=== PATIENT | male | born 1950 | race Caucasian/White ===

== ENCOUNTER → 2018-10-16 11:17 | Outpatient (BNVA) | payer MEDICARE, SELFPAY | PROVIDERS: PCP Family Medicine; Visit Provider Student in an Organized Health Care Education/Training Program | DX: I25.10 Atherosclerotic heart disease of native coronary artery without angina pectoris (principal); E78.2 Mixed hyperlipidemia; I10 Essential (primary) hypertension; J44.9 Chronic obstructive pulmonary disease, unspecified; Z87.891 Personal history of nicotine dependence | CPT/HCPCS: 99214 ==

== ENCOUNTER 2018-11-13 11:02 | Outpatient (CLI) | payer MEDICARE, SELFPAY ==
--- NOTE | 2018-11-13 09:45 | DI.RAD_ITS ---
SYMPTOMS/DIAGNOSIS: RT ANTERIOR CHEST PAIN, INCREASED SHORTNESS OF BREATH, COPD, R07.9, RT SHOULDER/THORACIC PAIN, M25.511 CHEST: Frontal and lateral views. Comparison examination is 08/12/13. The heart size and pulmonary vasculature are within normal limits. The lungs appear hyperinflated with flattened diaphragms. There are hyperlucent areas in the lung apices. The findings are suggestive of underlying COPD. There is prominence of the interstitium again noted which may reflect interstitial fibrosis. No focal consolidating infiltrate is seen. No effusion or pneumothorax is identified. Degenerative changes are seen in the spine. IMPRESSION: COPD and findings suggesting pulmonary fibrosis. RIGHT SHOULDER: Five views. Mild hypertrophic changes at the acromioclavicular joint. The glenohumeral joint appears well maintained. The bones are intact and normally mineralized. The soft tissues are unremarkable. IMPRESSION: Osteoarthritis of the right AC joint.
== END 2018-11-13 11:22 ==
PROVIDERS: PCP Family Medicine; Visit Provider Family Medicine
DX: R07.9 Chest pain, unspecified (principal); R06.02 Shortness of breath; J44.9 Chronic obstructive pulmonary disease, unspecified; J84.10 Pulmonary fibrosis, unspecified; M25.511 Pain in right shoulder; M19.111 Post-traumatic osteoarthritis, right shoulder; M54.6 Pain in thoracic spine
CPT/HCPCS: 71046; 73030

== ENCOUNTER → 2018-12-24 12:49 | Outpatient (BNVA) | payer MEDICARE, SELFPAY | PROVIDERS: PCP Family Medicine; Visit Provider Urology | DX: Z85.51 Personal history of malignant neoplasm of bladder (principal); I10 Essential (primary) hypertension; R31.29 Other microscopic hematuria | CPT/HCPCS: 81001; 99213 ==

== ENCOUNTER 2019-01-13 10:50 | Outpatient (CLI) | payer MEDICARE, SELFPAY ==
[2019-01-13 12:43] LABS: Abs Immature Grans 0.05 k/cumm (0.0-0.09); Absolute Basophil Count 0.02 k/cumm (0.0-0.2); Absolute Eosinophil Count 0.08 k/cumm (0.0-0.7); Absolute Lymphocyte Count 1.62 k/cumm (1.2-3.4); Absolute Monocyte Count 0.55 k/cumm (0.11-0.7); Absolute Neutrophil Count 7.09 k/cumm (1.2-6.7); Basophils % 0.2; Eosinophils % 0.9; HCT 44.5 % (40.0-50.0); HGB 14.7 g/dL (13.5-17.5); Immature Grans % 0.5; Lymphocytes % 17.2; Mean Corpuscular Hemoglobin 27.1 pg (27.0-33.0); Mean Corpuscular Volume 82.1 fL (80-95); Mean Platelet Volume 10.4 fL (8.0-11.0); Monocytes % 5.8; Neutrophils % 75.4; Platelet Count 335 x1000/uL (130-400); RBC 5.42 m/cumm (4.50-6.00); White Blood Cell Count 9.41 k/cumm (4.4-10.8)
[2019-01-13 13:09] LABS: ALT 41 U/L (12-78); AST 27 U/L (15-37); Alkaline Phosphatase 153 U/L (46-116); Anion Gap 9.4 mmol/L (3-11); BUN 30 mg/dL (7-18); Bilirubin, Total 0.3 mg/dL (0.2-1.0); CO2 29.6 mmol/L (21.0-32.0); CREATININE 0.93 mg/dL (0.70-1.30); Calcium 9.5 mg/dL (8.5-10.1); Chloride 99 mmol/L (98-107); Glucose 84 mg/dL (70-100); Potassium 4.2 mmol/L (3.5-5.1); Sodium 138 mmol/L (136-145); TSH 2.49 uIU/mL (0.358-3.74); Total Protein 7.5 g/dL (6.4-8.2)
== END 2019-01-13 11:10 ==
PROVIDERS: PCP Family Medicine; Visit Provider Family Medicine
DX: I10 Essential (primary) hypertension (principal); R55 Syncope and collapse
CPT/HCPCS: 36415; 80053; 84443; 85025

== ENCOUNTER 2019-01-17 01:44 | Outpatient (CLI) | payer MEDICARE, SELFPAY ==
--- NOTE | 2019-01-17 09:50 | DI.CT_ITS ---
SYMPTOM/DIAGNOSIS: COPD, ABD PAIN, INCREASED DYSPNEA, H/O BLADDER CA, ABNL WT LOSS, R63.4 CHEST, ABDOMEN AND PELVIC CT: CT examination of the chest, abdomen and pelvis was performed with a bolus infusion of 100 cc's of Omnipaque 350. There are severe changes of bullous emphysema. There is a mass measuring approximately 5.5 by 4 cm. in diameter which lies anteriorly and medially in the right upper lobe lying against and/or invading the mediastinum. There is right hilar adenopathy measuring about 18 by 40 mm. Prominent pretracheal nodes also noted which are poorly defined but which probably measure up to about 3 cm. in diameter. Mildly enlarged AP window nodes noted as well. Tracheobronchial tree appears intact. No additional intrapulmonary mass is seen. No axillary or supraclavicular adenopathy. No evidence of pulmonary embolic disease or thoracic aortic aneurysm or dissection. Proximal pulmonary arteries are enlarged consistent with chronic pulmonary arterial hypertension. Liver and spleen are unremarkable in appearance. Gallbladder has been surgically removed. No biliary dilatation is seen. Pancreas is unremarkable. Adrenals and kidneys appear normal. Abdominal aorta shows significant wall calcification and a couple of tiny outpouchings but no aneurysm is identified. Maximal aortic diameter about 28 mm. No abdominal or pelvic adenopathy is seen. The patient reportedly has a history of bladder carcinoma. No evidence of urinary tract obstruction or calcification. Urinary bladder appears grossly unremarkable. No pelvic mass or adenopathy is seen. No evidence of bowel obstruction. CONCLUSION: Large right apical lung mass seen medially which may be invading the mediastinum. This was not present on previous chest CT of 06/25/17. Presumed metastatic disease to right hilum and mediastinal nodes. Severe bullous emphysema and presumed pulmonary arterial hypertension. No other significant findings in the chest, abdomen or pelvis.
[2019-01-17] MEDS: Breeza Beverage 473 ML BTL PO ×2 (09:57→09:58)
[2019-01-17] MEDS: Omnipaque 350 MG/ML 100 ML BTL IJ (09:57)
[2019-01-17] MEDS: Omnipaque 350 MG/ML 50 ML BTL PO (09:58)
== END 2019-01-17 02:04 ==
PROVIDERS: PCP Family Medicine; Visit Provider Family Medicine
DX: R63.4 Abnormal weight loss (principal); R10.9 Unspecified abdominal pain; R06.09 Other forms of dyspnea; J44.9 Chronic obstructive pulmonary disease, unspecified; R91.8 Other nonspecific abnormal finding of lung field; J43.9 Emphysema, unspecified; I27.29 Other secondary pulmonary hypertension; Z85.51 Personal history of malignant neoplasm of bladder
CPT/HCPCS: 74177; 71260; J3490; Q9967

== ENCOUNTER 2019-03-31 08:26 | Outpatient (CLI) | payer MEDICARE, SELFPAY ==
[2019-03-31 10:17] LABS: HGB 11.1 g/dL (13.5-17.5); Mean Corp. HGB Concentration 31.7 g/dL (32.0-36.0); Mean Corpuscular Hemoglobin 26.1 pg (27.0-33.0); Mean Corpuscular Volume 82.2 fL (80-95); Mean Platelet Volume 9.7 fL (8.0-11.0); Platelet Count 391 x1000/uL (130-400); RBC 4.26 m/cumm (4.50-6.00); RBC Distribution Width 16.6 % (11.8-14.1); White Blood Cell Count 9.87 k/cumm (4.4-10.8)
[2019-03-31 10:34] LABS: ALT 65 U/L (12-78); AST 44 U/L (15-37); Alkaline Phosphatase 204 U/L (46-116); Anion Gap 6.8 mmol/L (3-11); BUN 31 mg/dL (7-18); Bilirubin, Total 0.6 mg/dL (0.2-1.0); CO2 28.2 mmol/L (21.0-32.0); Calcium 8.8 mg/dL (8.5-10.1); Chloride 101 mmol/L (98-107); Glucose 65 mg/dL (70-100); LDH 174 U/L (85-227); Potassium 4.2 mmol/L (3.5-5.1); Sodium 136 mmol/L (136-145); Total Protein 6.7 g/dL (6.4-8.2)
[2019-03-31 10:39] LABS: Absolute Lymphocyte Count 0.69 k/cumm (1.2-3.4); Absolute Monocyte Count 0.39 k/cumm (0.11-0.7)
[2019-03-31 10:40] LABS: Anisocytosis 1+; Diff Comment Manual Differential; Hypochromasia 1+; Poikilocytes 1+; Polychromasia Present
[2019-03-31 10:44] LABS: Absolute Neutrophil Count 8.59 k/cumm (1.2-6.7)
== END 2019-03-31 08:46 ==
PROVIDERS: PCP Family Medicine; Visit Provider Registered Nurse Oncology
DX: C34.11 Malignant neoplasm of upper lobe, right bronchus or lung (principal)
CPT/HCPCS: 36415; 80053; 83615; 85025

== ENCOUNTER 2019-03-31 09:20 | Outpatient (CLI) | payer MEDICARE, SELFPAY ==
--- NOTE | 2019-03-31 10:00 | DI.CT_ITS ---
SYMPTOM/DIAGNOSIS: CHEST WALL PAIN, ? MULTIPLE IB FRACTURE AND METASTATIC LUNG CA, R07.[address]: CT scan of the chest was performed following the uneventful administration of intravenous contrast material. Comparison is made with 01/17/19. There is again seen a mass in the medial aspect of the right upper lobe. The mass measures 6.8 cm. AP by 5.7 cm. transverse by 9.5 cm. craniocaudad. This has shown interval increase in size compared to the prior examination (5.5 by 4.0 cm.). There is also now invasion into the right aspect of the sternum by the mass. The mass also appears to involve the anterior soft tissues including probably the right pectoralis muscle. There may also be involvement of the wall of the ascending aorta and adjacent superior vena cava. There is mediastinal and right hilar adenopathy present. There has been interval increase in size of the large right hilar lymph node which now measures 2.7 by 2.6 cm. Heart size is within normal limits. There is a small pericardial effusion. Coronary artery calcifications are present. Upper abdominal images show the patient is status post cholecystectomy. Severe centrilobular emphysematous changes are present in the lungs. Interstitial fibrotic changes are seen in the lungs likely reflecting pulmonary fibrosis. No focal consolidating infiltrates are seen. There are degenerative changes in the spine. No definite fracture is appreciated. IMPRESSION: 1. Interval increase in size of right upper lobe mass. 2. Since the prior examination, invasion of the mass into the sternum and right anterior wall musculature are noted. There also appears to be involvement of the costochondral junctions of right ribs medially. 3. The mass is close proximity to the superior vena cava and ascending thoracic aorta and involvement by tumor cannot be excluded. 4. Increased mediastinal and right hilar adenopathy. 5. Severe centrilobular emphysematous changes.
[2019-03-31] MEDS: Omnipaque 350 MG/ML 100 ML BTL 70 ML IJ (10:02)
[2019-03-31] MEDS: Normal Saline Flush 10 ML SYR IVP (10:02)
== END 2019-03-31 09:40 ==
PROVIDERS: PCP Family Medicine; Visit Provider Family Medicine
DX: C34.90 Malignant neoplasm of unspecified part of unspecified bronchus or lung (principal); R07.89 Other chest pain; R59.0 Localized enlarged lymph nodes; I31.3 Pericardial effusion (noninflammatory); J43.2 Centrilobular emphysema
CPT/HCPCS: 71260; J3490

== ENCOUNTER 2019-03-31 11:42 | Emergency (ER) | payer MEDICARE, SELFPAY ==
--- NOTE | 2019-03-31 11:44 | ED.GENADUL_ITS ---
Discharge Plan Disposition Patient Disposition: HOME Condition: Good Discharge Details Chief Complaint: SOB Clinical Impression: Lung cancer, Chest pain Primary Care Provider: Malka Sandhu ED Provider: Shyam Cox Home Meds and New Rx's Prescriptions: No Action prochlorperazine maleate [Compazine] 10 mg tablet 10 mg PO Q6H PRN RF: 0 lidocaine 4 % adhesive patch,medicated 1 patch TP DAILY RF: 0 celecoxib 200 mg capsule 200 mg PO BID Qty: 60 RF: 6 acetaminophen 500 mg tablet 1,000 mg PO TID RF: 0 pneumoc 13-arturo conj-dip cr(PF) 0.5 mL syringe 0.5 ml IM ONCE Qty: 0.5 RF: 0 gabapentin 300 mg capsule 900 mg PO BID RF: 0 ranitidine HCl [Zantac Maximum Strength] 150 mg tablet 150 mg PO BID PRNRF: 0 sertraline 100 mg tablet 200 mg PO DAILY Qty: 180 RF: 4 fentanyl 50 mcg/hr patch 72 hour 1 patch TD Q72H MDD 1 Qty: 10 RF: 0 lorazepam 1 mg tablet 1 mg PO Q4H MDD 4 PRN (Reason: dyspnea) Qty: 60 RF: 4 ASPIRIN 81 MG tablet 1 tab PO DAILY RF: 0 albuterol sulfate [ProAir HFA] 8.5 GM HFA aerosol inhaler 1 - 2 puff Inhalation QID PRNQty: 2 RF: 6 nitroglycerin 0.4 MG tablet, sublingual 0.4 mg Sublingual Q6H PRN PRNQty: 25 RF: 0 trazodone 100 mg tablet 100 mg PO DAILY Qty: 90 RF: 4 baclofen 10 mg tablet 10 mg PO BID Qty: 180 RF: 3 Discharge Instructions Instructions: Chest Pain (ED) Additional Instructions: At this time your laboratory work-up for your heart shows no evidence of significant heart attack or abnormality. Your CT scan shows notable increase in size in your lung cancer. No evidence of significant blood clots. The tumor is pushing and growing into your sternum and ribs which I feel is a large cause of your pain. You may benefit from a rib block by anesthesia. Please discuss this with Dr. Ordonez today. Please follow-up at her office at 4:30 today. Please do not miss this appointment. If you notice any worsening of your symptoms, or any new symptoms such as vomiting, diarrhea, fever, chills, shortness of breath, chest pain, numbness, weakness, or fainting , please return immediately to the emergency department for reevaluation. Please follow up with your primary care provider as soon as possible for reassessment and reevaluation. As always, it was a pleasure participating in your medical care today. Referrals: Gia Beckham MD, [place] [[facility]] - Discharge Data Discharge Date/Time-TO BE ENTERED AT DEPARTURE: 03/31/19 13:29 Medical Decision Making This is a 68-year-old male who presents today for evaluation of chest pain. 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 He is seen by Dr. Sparks. Has chronic right-sided chest pain, however 3 days ago he states that he sneezed and the pain completely went from the right side and now the left side by the left lower sternal border. Pain is made worse with palpation, movement and breathing. He has a history of cardiac disease but states that these current symptoms are atypical from when he had previous cardiac stents. Physical exam demonstrates notable reproducible tenderness on the left side of the chest. He was sent here by oncology today for further evaluation of his chest pain. CT scan earlier today shows evidence of an enlarging cancer, growing roughly 1 cm in all directions. There is encroachment towards the ascending aorta and the superior vena cava. Physical exam demonstrates reproducible chest wall tenderness. No evidence of significant venous or vascular compromise at this time. CT scan also shows notable encroachment and involvement of the tumor into the muscles of the chest, the sternum and the ribs. No acute fractures or evidence of large PE. Laboratory work-up is relatively unchanged, EKG shows no evidence of STEMI or significant ST elevations or depressions. Troponin normal. Lidoderm patch gave no significant relief. With no evidence of clear ACS, Dr. Sparks was contacted, and the case as well as the notable worsening of the patient's symptoms in spite of chemotherapy and radiation was discussed. Dr. Sparks and would like to see the patient this afternoon at 430 for further evaluation, and discussion of the plan going forward. With no evidence of PE, severe cardiac ischemia, or other abnormality patient will be discharged home to see Dr. Dauber 10 in a few hours. I spent a lengthy time discussing the findings, situation, and potential future outcomes with the patient and family. All questions were answered. I have extensively reviewed the treatment plan and discharge instructions with the patient and their family. I have addressed all patient concerns at this time. The patient and family was made aware of what symptoms to monitor for that would warrant a return to the emergency department. Discussed the plan with the patient and family, they demonstrate verbal understanding and agreement with our assessment and plan at this time. EKG 11: 49 Rate 60, intervals normal, sinus rhythm, no significant ST elevations or depressions, inverted T wave is present in V1 and V2. No evidence of STEMI unc hanged from prior EKG on 08/09/[address]: CT scan of the chest was performed following the uneventful administration of intravenous contrast material. Comparison is made with 01/17/19. There is again seen a mass in the medial aspect of the right upper lobe. The mass measures 6.8 cm. AP by 5.7 cm. transverse by 9.5 cm. craniocaudad. This has shown interval increase in size compared to the prior examination (5.5 by 4.0 cm.). There is also now invasion into the right aspect of the sternum by the mass. The mass also appears to involve the anterior soft tissues including probably the right pectoralis muscle. There may also be involvement of the wall of the ascending aorta and adjacent superior vena cava. There is mediastinal and right hilar adenopathy present. There has been interv al increase in size of the large right hilar lymph node which now measures 2.7 by 2.6 cm. Heart size is within normal limits. There is a small pericardial effusion. Coronary artery calcifications are present. Upper abdominal images show the patient is status post cholecystectomy. Severe centrilobular emphysematous changes are present in the lungs. Interstitial fibrotic changes are seen in the lungs likely reflecting pulmonary fibrosis. No focal consolidating infiltrates are seen. There are degenerative changes in the spine. No definite fracture is appreciated. IMPRESSION: 1. Interval increase in size of right upper lobe mass. 2. Since the prior examination, invasion of the mass into the sternum and right anterior wall musculature are noted. There also appears to be involvement of the costochondral junctions of right ribs medially. 3. The mass is close proximity to the superior vena cava and ascending thoracic aorta and involvement by tumor cannot be excluded. 4. Increased mediastinal and right hilar adenopathy. 5. Severe centrilobular emphysematous changes. [id number]: Total DLP = 0.00 mGy-cm Ordered By: Gia Beckham M.D., [place] CC: DENNIS WALLS MD [facility] General Date/Time Provider Initiated Documentation: 03/31/19 11:43 . HPI Narrative: This is a pleasant 68-year-old male with a past medical history of alpha-1 antitrypsin deficiency, squamous cell carcinoma of the lung, who is currently receiving chemotherapy and radiation. He also has hypertension and high cholesterol. Since his initial large tumor was discovered in his lungs, he has been having chronic right-sided chest pain. About 3 days ago he states that he sneezed, and suddenly the pain went from his right chest to his left chest. He was supposed to have radiation today, but out of concern for the chest pain oncology recommended he come to the ER for further evaluation. This is also discussed with Dr. Mateus Dos Santos, who had the same recommendation. He did have a CT scan earlier this morning which showed enlargement of the tumor, with mild encroachment on his aorta, superior vena cava, and invagination into the right ribs and mediastinum. It is grown roughly 1 cm in all directions since his last CT scan in spite of therapy. Aside for this chronic pain that is now present on the left-hand side he denies any new shortness of breath, arm neck or shoulder pain, chest heaviness, or history of hemoptysis. CT scan performed earlier today he did have IV contrast, no evidence of pulmonary embolism or dissection was noted. Patient does have a history of cardiac stents in the past, but states that this feels different than those previous episodes. No other complaints at this time. No other modifying factors. Related Data Home Medications Medication Instructions Recorded Confirmed Aspirin 1 tab PO DAILY 12/31/12 03/26/19 albuterol sulfate [Proair Hfa] 1 - 2 puff INHALATION QID PRN #2 12/25/16 03/19/19 inhaler nitroglycerin 0.4 mg SUBLINGUAL Q6H PRN PRN #25 06/27/17 03/26/19 tab-cap pneumoc 13-arturo conj-dip cr(PF) 0.5 0.5 ml IM ONCE #0.5 ml 08/21/18 03/19/19 mL IM syringe trazodone 100 mg tablet 100 mg PO DAILY #90 tab-cap 10/13/18 03/26/19 baclofen 10 mg tablet 10 mg PO BID #180 tab-cap 11/01/18 03/26/19 ranitidine HCl 150 mg tablet 150 mg PO BID PRN tab-cap 12/25/18 03/26/19 sertraline 100 mg tablet 200 mg PO DAILY #180 tab 12/25/18 03/26/19 acetaminophen 500 mg tablet 1,000 mg PO TID tab 03/26/19 03/26/19 celecoxib 200 mg capsule 200 mg PO BID #60 cap 03/26/19 03/26/19 gabapentin 300 mg capsule 900 mg PO BID tab-cap 03/26/19 03/26/19 lidocaine 4 % topical patch 1 patch TP DAILY each 03/26/19 03/26/19 prochlorperazine maleate 10 mg 10 mg PO Q6H PRN tab 03/26/19 03/26/19 tablet fentanyl 50 mcg/hr transdermal 1 patch TD Q72H #10 each MDD 1 03/31/19 03/31/19 patch lorazepam 1 mg tablet 1 mg PO Q4H PRN #60 tab MDD 4 03/31/19 03/31/19 Previous Rx's Medication Instructions Recorded pneumoc 13-arturo conj-dip cr(PF) 0.5 0.5 ml IM ONCE #0.5 ml 08/21/18 mL IM syringe trazodone 100 mg tablet 100 mg PO DAILY #90 tab-cap 10/13/18 baclofen 10 mg tablet 10 mg PO BID #180 tab-cap 11/01/18 sertraline 100 mg tablet 200 mg PO DAILY #180 tab 12/25/18 celecoxib 200 mg capsule 200 mg PO BID #60 cap 03/26/19 fentanyl 50 mcg/hr transdermal 1 patch TD Q72H #10 each MDD 1 03/31/19 patch lorazepam 1 mg tablet 1 mg PO Q4H PRN #60 tab MDD 4 03/31/19 Allergies Allergy/AdvReac Type Severity Reaction Status Date / Time bupropion Allergy Intermediate Hives Verified 03/19/19 07:57 Tricyclic Compounds Allergy Intermediate Hives Verified 03/19/19 07:57 omeprazole AdvReac Intermediate Diarrhea Verified 03/19/19 07:57 isosorbide mononitrate AdvReac Headache Verified 03/19/19 07:57 [From Imdur] ketorolac [From Toradol] AdvReac Headache Unverified 03/26/19 08:44 Review of Systems Review of Systems All systems reviewed & are unremarkable except as noted in HPI and below PFSH Family History (Updated 03/26/19 @ 09:06 by Devorah Holley RN) Daughter No problems noted. Son No problems noted. Mother Aneurysm Father Aortic aneurysm Social History (Updated 03/26/19 @ 09:05 by Devorah Holley RN) Smoking/Tobacco Use Status: Former Tobacco Use Drug use: Never Household members: significant other Housing: house Pets and animals: Yes ([facility]) Pets and animals: cat(s) Do you feel safe in your relationship?: Yes Exam Narrative Exam Narrative: 1.Const: Well-nourished, Well-developed, appearing stated age 2.Eyes: PERRL, no conjunctival injection, and symmetrical lids. 3.ENT: Atraumatic external nose and ears. Moist MM. Neck: Symmetric, trachea midline, No thyromegaly. 4.CVS: +S1/S2, No murmurs or gallops. Peripheral pulses 2+ and equal in all extremities. Brisk capillary refill in all extremities. Radial pulses +2 bilaterally. No evidence of significant venous congestion for the upper or lower extremities. 5.RESP: Unlabored respiratory effort. Clear to auscultation bilaterally. No wheezes rales or rhonchi 6.GI: Soft, Nontender/Nondistended, No hepatosplenomegaly. No guarding or rebound. 7.MSK: Normocephalic/Atraumatic, Extremities w/o deformity. No cyanosis or cl ubbing, Normal movement of all extremities. Notable reproducible chest wall tenderness on the left and right around the sternum. This is a location of the patient's chest pain complaint. No pain in other areas of the chest. 8.Skin: Warm, Dry. No rashes or lesions. 9.Neuro: thermostat mechanic II-XII grossly intact. Sensation grossly intact, no focal neurologic deficits. 10.Psych: (AAO) x3. Appropriate mood and affect
[2019-03-31 11:51] VITALS: PULSE 71; RESP 18; O2SAT 99
[2019-03-31] MEDS: Lidocaine 5% Patch 1 PATCH TP (12:07)
[2019-03-31 12:10] LABS: Absolute Basophil Count 0.02 k/cumm (0.0-0.2); Absolute Eosinophil Count 0.05 k/cumm (0.0-0.7); Absolute Lymphocyte Count 0.83 k/cumm (1.2-3.4); Absolute Monocyte Count 0.46 k/cumm (0.11-0.7); Basophils % 0.2; Eosinophils % 0.5; HCT 35.6 % (40.0-50.0); HGB 11.6 g/dL (13.5-17.5); Immature Grans % 1.9; Lymphocytes % 7.9; Mean Corp. HGB Concentration 32.6 g/dL (32.0-36.0); Mean Corpuscular Hemoglobin 26.6 pg (27.0-33.0); Mean Corpuscular Volume 81.7 fL (80-95); Monocytes % 4.4; Neutrophils % 85.1; Platelet Count 417 x1000/uL (130-400); RBC 4.36 m/cumm (4.50-6.00); RBC Distribution Width 16.7 % (11.8-14.1); White Blood Cell Count 10.56 k/cumm (4.4-10.8)
[2019-03-31 12:31] LABS: ALT 70 U/L (12-78); AST 47 U/L (15-37); Albumin 2.2 g/dL (3.4-5.0); Alkaline Phosphatase 220 U/L (46-116); Anion Gap 6.9 mmol/L (3-11); BUN 31 mg/dL (7-18); Bilirubin, Total 0.6 mg/dL (0.2-1.0); CO2 28.1 mmol/L (21.0-32.0); Calcium 8.9 mg/dL (8.5-10.1); Chloride 100 mmol/L (98-107); Glucose 86 mg/dL (70-100); Potassium 4.3 mmol/L (3.5-5.1); Sodium 135 mmol/L (136-145); Total Protein 7.1 g/dL (6.4-8.2)
[2019-03-31 12:36] LABS: Troponin I < 0.05 ng/mL (0.00-0.06)
== END 2019-03-31 13:29 | disposition home or self-care (01) ==
PROVIDERS: Emergency Provider Student in an Organized Health Care Education/Training Program; PCP Family Medicine
DX: R06.02 Shortness of breath (principal); R07.9 Chest pain, unspecified; C34.11 Malignant neoplasm of upper lobe, right bronchus or lung; Z79.899 Other long term (current) drug therapy; I10 Essential (primary) hypertension
CPT/HCPCS: 36415; 80053; 93005; 99284; 71260; 83615; 84484; 85025; 93010; 99285; J3490

== ENCOUNTER 2019-04-08 09:36 | Outpatient (CLI) | payer MEDICARE, SELFPAY ==
[2019-04-08 10:00] LABS: Abs Immature Grans 0.07 k/cumm (0.0-0.09); Absolute Basophil Count 0.02 k/cumm (0.0-0.2); Absolute Eosinophil Count 0.01 k/cumm (0.0-0.7); Absolute Monocyte Count 0.09 k/cumm (0.11-0.7); Absolute Neutrophil Count 6.81 k/cumm (1.2-6.7); Basophils % 0.3; Eosinophils % 0.1; HCT 40.2 % (40.0-50.0); HGB 12.8 g/dL (13.5-17.5); Lymphocytes % 4.1; Mean Corp. HGB Concentration 31.8 g/dL (32.0-36.0); Mean Corpuscular Hemoglobin 26.2 pg (27.0-33.0); Mean Corpuscular Volume 82.4 fL (80-95); Mean Platelet Volume 9.3 fL (8.0-11.0); Monocytes % 1.2; Neutrophils % 93.3; Platelet Count 298 x1000/uL (130-400); RBC 4.88 m/cumm (4.50-6.00); RBC Distribution Width 18.8 % (11.8-14.1)
[2019-04-08 10:15] LABS: ALT 88 U/L (12-78); AST 47 U/L (15-37); Albumin 2.6 g/dL (3.4-5.0); Alkaline Phosphatase 150 U/L (46-116); Anion Gap 8.1 mmol/L (3-11); BUN 28 mg/dL (7-18); Bilirubin, Total 0.4 mg/dL (0.2-1.0); CO2 25.9 mmol/L (21.0-32.0); CREATININE 0.89 mg/dL (0.70-1.30); Chloride 104 mmol/L (98-107); Glucose 113 mg/dL (70-100); Potassium 4.6 mmol/L (3.5-5.1); Sodium 138 mmol/L (136-145); Total Protein 7.2 g/dL (6.4-8.2)
== END 2019-04-08 09:56 ==
PROVIDERS: PCP Family Medicine; Visit Provider Registered Nurse Oncology
DX: C34.01 Malignant neoplasm of right main bronchus (principal)
CPT/HCPCS: 36415; 80053; 85025

== ENCOUNTER 2019-04-15 00:43 | Outpatient (CLI) | payer MEDICARE, SELFPAY ==
[2019-04-15 09:44] LABS: Abs Immature Grans 0.04 k/cumm (0.0-0.09); Absolute Basophil Count 0.01 k/cumm (0.0-0.2); Absolute Eosinophil Count 0.01 k/cumm (0.0-0.7); Absolute Lymphocyte Count 0.31 k/cumm (1.2-3.4); Absolute Monocyte Count 0.21 k/cumm (0.11-0.7); Absolute Neutrophil Count 5.07 k/cumm (1.2-6.7); Basophils % 0.2; Eosinophils % 0.2; HCT 38.5 % (40.0-50.0); HGB 12.4 g/dL (13.5-17.5); Immature Grans % 0.7; Lymphocytes % 5.5; Mean Corp. HGB Concentration 32.2 g/dL (32.0-36.0); Mean Corpuscular Volume 83.7 fL (80-95); Mean Platelet Volume 9.1 fL (8.0-11.0); Monocytes % 3.7; Neutrophils % 89.7; Platelet Count 180 x1000/uL (130-400); White Blood Cell Count 5.65 k/cumm (4.4-10.8)
[2019-04-15 09:58] LABS: Albumin 2.8 g/dL (3.4-5.0); Alkaline Phosphatase 105 U/L (46-116); BUN 21 mg/dL (7-18); Bilirubin, Total 0.4 mg/dL (0.2-1.0); CREATININE 0.94 mg/dL (0.70-1.30); Calcium 9.1 mg/dL (8.5-10.1); Glucose 112 mg/dL (70-100); Sodium 140 mmol/L (136-145); Total Protein 6.8 g/dL (6.4-8.2)
[2019-04-15 09:59] LABS: ALT 70 U/L (12-78); AST 28 U/L (15-37); Anion Gap 8.4 mmol/L (3-11); CO2 26.6 mmol/L (21.0-32.0); Chloride 105 mmol/L (98-107)
[2019-04-15 10:12] LABS: Anisocytosis 2+; Diff Comment Diff Reviewed; Poikilocytes 1+
== END 2019-04-15 01:03 ==
PROVIDERS: Registered Nurse Oncology; PCP Family Medicine; Visit Provider Family Medicine
DX: C34.01 Malignant neoplasm of right main bronchus (principal)
CPT/HCPCS: 36415; 80053; 85025

== ENCOUNTER 2019-04-22 09:57 | Outpatient (CLI) | payer MEDICARE, SELFPAY ==
[2019-04-22 10:25] LABS: Abs Immature Grans 0.04 k/cumm (0.0-0.09); Absolute Basophil Count 0.01 k/cumm (0.0-0.2); Absolute Lymphocyte Count 0.32 k/cumm (1.2-3.4); Absolute Monocyte Count 0.19 k/cumm (0.11-0.7); Absolute Neutrophil Count 3.54 k/cumm (1.2-6.7); Basophils % 0.2; HCT 36.4 % (40.0-50.0); HGB 11.9 g/dL (13.5-17.5); Lymphocytes % 7.8; Mean Corp. HGB Concentration 32.7 g/dL (32.0-36.0); Mean Corpuscular Volume 85.6 fL (80-95); Mean Platelet Volume 9.3 fL (8.0-11.0); Monocytes % 4.6; Neutrophils % 86.4; Platelet Count 113 x1000/uL (130-400); RBC 4.25 m/cumm (4.50-6.00); RBC Distribution Width 23.5 % (11.8-14.1)
[2019-04-22 10:52] LABS: ALT 52 U/L (12-78); AST 20 U/L (15-37); Albumin 2.9 g/dL (3.4-5.0); Alkaline Phosphatase 98 U/L (46-116); Anion Gap 8.4 mmol/L (3-11); BUN 31 mg/dL (7-18); Bilirubin, Total 0.3 mg/dL (0.2-1.0); CO2 26.6 mmol/L (21.0-32.0); CREATININE 0.92 mg/dL (0.70-1.30); Calcium 8.9 mg/dL (8.5-10.1); Chloride 105 mmol/L (98-107); Glucose 96 mg/dL (70-100); LDH 152 U/L (85-227); Potassium 4.6 mmol/L (3.5-5.1); Sodium 140 mmol/L (136-145); Total Protein 6.9 g/dL (6.4-8.2)
== END 2019-04-22 10:17 ==
PROVIDERS: PCP Family Medicine; Visit Provider Registered Nurse Oncology
DX: C34.11 Malignant neoplasm of upper lobe, right bronchus or lung (principal)
CPT/HCPCS: 36415; 80053; 83615; 85025

== ENCOUNTER 2019-04-29 09:57 | Outpatient (CLI) | payer MEDICARE, SELFPAY ==
[2019-04-29 10:57] LABS: ALT 36 U/L (12-78); AST 15 U/L (15-37); Albumin 3.1 g/dL (3.4-5.0); Alkaline Phosphatase 83 U/L (46-116); BUN 29 mg/dL (7-18); Bilirubin, Total 0.4 mg/dL (0.2-1.0); CREATININE 0.89 mg/dL (0.70-1.30); Calcium 8.5 mg/dL (8.5-10.1); Chloride 109 mmol/L (98-107); Glucose 92 mg/dL (70-100); LDH 159 U/L (85-227); Potassium 4.1 mmol/L (3.5-5.1); Sodium 143 mmol/L (136-145); Total Protein 6.8 g/dL (6.4-8.2)
[2019-04-29 11:03] LABS: Abs Immature Grans 0.01 k/cumm (0.0-0.09); Absolute Basophil Count 0.01 k/cumm (0.0-0.2); Absolute Eosinophil Count 0.01 k/cumm (0.0-0.7); Absolute Lymphocyte Count 0.26 k/cumm (1.2-3.4); Absolute Monocyte Count 0.09 k/cumm (0.11-0.7); Absolute Neutrophil Count 2.62 k/cumm (1.2-6.7); Basophils % 0.3; Eosinophils % 0.3; HCT 33.2 % (40.0-50.0); HGB 10.8 g/dL (13.5-17.5); Immature Grans % 0.3; Lymphocytes % 8.7; Mean Corp. HGB Concentration 32.5 g/dL (32.0-36.0); Mean Corpuscular Hemoglobin 28.1 pg (27.0-33.0); Mean Corpuscular Volume 86.2 fL (80-95); Mean Platelet Volume 11.5 fL (8.0-11.0); Neutrophils % 87.4; RBC 3.85 m/cumm (4.50-6.00); RBC Distribution Width 23.8 % (11.8-14.1)
[2019-04-29 11:08] LABS: Anisocytosis 2+; Diff Comment RBC Morph Reviewed; Hypochromasia 1+; Polychromasia Present
[2019-04-29 11:09] LABS: Platelet Count 81 x1000/uL (130-400); Poikilocytes 1+
== END 2019-04-29 10:17 ==
PROVIDERS: PCP Family Medicine; Visit Provider Registered Nurse Oncology
DX: C34.11 Malignant neoplasm of upper lobe, right bronchus or lung (principal)
CPT/HCPCS: 80053; 83615; 85025

== ENCOUNTER 2019-05-06 09:08 | Outpatient (CLI) | payer MEDICARE, SELFPAY ==
[2019-05-06 09:30] LABS: Abs Immature Grans 0.01 k/cumm (0.0-0.09); Absolute Eosinophil Count 0.01 k/cumm (0.0-0.7); Absolute Monocyte Count 0.14 k/cumm (0.11-0.7); Absolute Neutrophil Count 0.92 k/cumm (1.2-6.7); Eosinophils % 0.7; HGB 11.2 g/dL (13.5-17.5); Immature Grans % 0.7; Lymphocytes % 21.7; Mean Corp. HGB Concentration 32.9 g/dL (32.0-36.0); Mean Corpuscular Volume 88.1 fL (80-95); Mean Platelet Volume 9.6 fL (8.0-11.0); Monocytes % 10.1; Neutrophils % 66.8; Platelet Count 151 x1000/uL (130-400); RBC 3.86 m/cumm (4.50-6.00)
[2019-05-06 09:33] LABS: White Blood Cell Count 1.38 k/cumm (4.4-10.8)
[2019-05-06 09:40] LABS: ALT 28 U/L (12-78); AST 13 U/L (15-37); Albumin 3.3 g/dL (3.4-5.0); Alkaline Phosphatase 83 U/L (46-116); Anion Gap 9.7 mmol/L (3-11); BUN 29 mg/dL (7-18); Bilirubin, Total 0.7 mg/dL (0.2-1.0); CO2 26.3 mmol/L (21.0-32.0); CREATININE 0.95 mg/dL (0.70-1.30); Calcium 8.9 mg/dL (8.5-10.1); Chloride 107 mmol/L (98-107); Glucose 99 mg/dL (70-100); LDH 192 U/L (85-227); Potassium 3.6 mmol/L (3.5-5.1); Sodium 143 mmol/L (136-145); Total Protein 7.2 g/dL (6.4-8.2)
[2019-05-06 09:50] LABS: Anisocytosis 3+; Diff Comment Diff Reviewed
[2019-05-06 09:51] LABS: Poikilocytes 2+; Polychromasia Present
== END 2019-05-06 09:28 ==
PROVIDERS: PCP Family Medicine; Visit Provider Registered Nurse Oncology
DX: C34.11 Malignant neoplasm of upper lobe, right bronchus or lung (principal); R74.8 Abnormal levels of other serum enzymes
CPT/HCPCS: 36415; 80053; 83615; 83915; 85025

== ENCOUNTER → 2019-05-07 08:52 | Outpatient (BNVA) | payer MEDICARE, SELFPAY | PROVIDERS: PCP Family Medicine; Referring Provider Family Medicine; Visit Provider Student in an Organized Health Care Education/Training Program | DX: I25.10 Atherosclerotic heart disease of native coronary artery without angina pectoris (principal); F17.210 Nicotine dependence, cigarettes, uncomplicated; I95.9 Hypotension, unspecified; J44.9 Chronic obstructive pulmonary disease, unspecified; I10 Essential (primary) hypertension | CPT/HCPCS: 99214 ==

== ENCOUNTER 2019-05-12 10:51 | Outpatient (REF) | payer MEDICARE, SELFPAY ==
[2019-05-12 11:37] LABS: Bilirubin Negative (Negative); Blood Small (Negative); Clarity Cloudy (Clear); Glucose Negative (Negative); Ketones Negative (Negative); Leukocyte Esterase Moderate (Negative); Nitrite Positive (Negative); Specific Gravity 1.025 (1.005-1.025); Urobilinogen 0.2 EU/dL (Up TO 0.2); pH 6.5 (5-8)
[2019-05-12 11:46] LABS: C & S Indicated? Yes; WBC >50 HPF (0-5)
== END 2019-05-12 11:11 ==
LOC: LBN 10:51
PROVIDERS: PCP Family Medicine; Visit Provider Family Medicine
DX: R35.0 Frequency of micturition (principal)
CPT/HCPCS: 87077; 81003; 81015; 87086; 87186

== ENCOUNTER 2019-05-20 10:06 | Inpatient (IN) | payer MEDICARE, SELFPAY ==
[2019-05-20] VITALS (138 sets, daily range): BP systolic 89–152; BP diastolic 59–101; PULSE 89–123; RESP 4–36; TEMP 34–37.2; O2SAT 52–98
[2019-05-20] MEDS: Normal Saline 1,000 ML 1000 ML IV ×2 (09:56→10:57)
--- NOTE | 2019-05-20 09:59 | DI.CT_ITS ---
SYMPTOM/DIAGNOSIS: LUNG CANCER, SHORTNESS OF BREATH. CHEST CT FOR PULMONARY EMBOLISM CT angiography was performed with multi slice acquisition and multi planar and 3D reconstruction. Comparison is made with 31 March 2019. The aorta and pulmonary arteries are well opacified with IV contrast. There are no pulmonary emboli or evidence of aortic dissection. There has been interval decrease in size of the previously noted mass in the medial right upper lobe. There are central areas of necrosis. There are severe underlying emphysematous changes and changes of honeycombing throughout the lungs. There is pleural thickening posteriorly in the right upper lobe. There has also been decrease in size of right hilar adenopathy and in the previously noted pericardial effusion. There is now a fracture in the mid sternum. Previous tumor invasion in to the sternum was noted. Degenerative changes are seen in the thoracic spine. No lytic or blastic lesions are identified in the spine. No rib fractures or pneumothorax is seen. IMPRESSION: 1. Pathologic fracture of the sternum. 2. Decreased size of the anteromedial right upper lobe mass adjacent to the sternum
--- NOTE | 2019-05-20 10:13 | ED.GENADUL_ITS ---
Discharge Plan Disposition Patient Disposition: [facility] INPATIENT Condition: Stable Discharge Details Chief Complaint: SOB Clinical Impression: Chronic obstructive lung disease, Low O2 saturation Primary Care Provider: Malka Sandhu ED Provider: Quique Reyez Home Meds and New Rx's Prescriptions: No Action (DME) Oxygen Tank See Rx Instructions .ROUTE .MEDSUPPLY Qty: 1 RF: 0 prochlorperazine maleate [Compazine] 10 mg tablet 10 mg PO Q6H PRN RF: 0 celecoxib 200 mg capsule 200 mg PO BID Qty: 60 RF: 6 acetaminophen 500 mg tablet 1,000 mg PO TID RF: 0 gabapentin 300 mg capsule 900 mg PO BID Qty: 540 RF: 5 fentanyl 25 mcg/hr patch 72 hour 1 patch TD Q72H MDD 1 Qty: 10 RF: 0 lorazepam 1 mg tablet 1 mg PO Q4H MDD 4 PRN (Reason: dyspnea) Qty: 90 RF: 4 dexamethasone 4 mg tablet 4 mg PO DAILY RF: 0 ranitidine HCl [Zantac Maximum Strength] 150 mg tablet 150 mg PO BID PRNRF: 0 sertraline 100 mg tablet 200 mg PO DAILY Qty: 180 RF: 4 ciprofloxacin HCl 500 mg tablet 500 mg PO BID Qty: 14 RF: 0 ASPIRIN 81 MG tablet 1 tab PO DAILY RF: 0 albuterol sulfate [ProAir HFA] 8.5 GM HFA aerosol inhaler 1 - 2 puff Inhalation QID PRNQty: 2 RF: 6 nitroglycerin 0.4 MG tablet, sublingual 0.4 mg Sublingual Q6H PRN PRNQty: 25 RF: 0 trazodone 100 mg tablet 100 mg PO DAILY Qty: 90 RF: 4 baclofen 10 mg tablet 10 mg PO BID Qty: 180 RF: 3 atorvastatin 80 mg tablet 80 mg PO DAILY Qty: 90 RF: 4 Medical Decision Making 68 yo male with hx of lung cancer, copd on home o2, who comes in with worsening shortness of breath over 5 days. He called ems this morning and was given 125mg IV solumedrol, duoneb and 0.3mg SQ epi and states he does feel better now. Denies any fevers, has chronic right sided chest pain that is unchanged. He is speaking in 4-5 word sentences now and has diffuse wheezing on exam, no rashes, no lower extremity edema or jvd. Given his hx will continue duonebs and obtain cta to eval for pe vs pna. He has no new chest pain so unlikely acs cta per Dr. Rodriguez shows no pe or infiltrate, has pathological fx of sternum denies any recent falls. Lab work shows probnp of over 8000 but no evidence of pulmonary edema and negative troponin. he is still hypoxic on 8L NC and given symptoms will admit for copd exacerbation Differential Diagnosis copd, pe, pna Imaging Data Radiologic Study: Attestation: I personally reviewed and interpreted this imaging study as follows: Imaging: CT Scan Radiologist's impression: no acute pe or infiltrate, sternal fracture Lab Data Lab results reviewed: Yes I reviewed the patient's lab results. ECG Data Attestation: I personally reviewed and interpreted this ECG (s) as follows: Prior ECG tracings: not available for review Interpretation: sinus tachycardia, rate of 108, pr 158, qtc 482 HPI General Mode of arrival: ambulatory . Date/Time Provider Initiated Documentation: 05/20/19 10:13 . Limitations to Documentation: no limitations . Information obtained by: patient . History of Present Illness 68 year old M presents to the emergency department with the chief complaint of shortness of breath, described as moderate, Patient started experiencing this day(s) (5) and it has been other. No relieving factors improve symptom(s), No exacerbating factors reported . Patient did receive the following treatments prior to arrival, none Related Data Home Medications Medication Instructions Recorded Confirmed Aspirin 1 tab PO DAILY 12/31/12 05/20/19 albuterol sulfate [Proair Hfa] 1 - 2 puff INHALATION QID PRN #2 12/25/16 05/20/19 inhaler nitroglycerin 0.4 mg SUBLINGUAL Q6H PRN PRN #25 06/27/17 05/20/19 tab-cap trazodone 100 mg tablet 100 mg PO DAILY #90 tab-cap 10/13/18 05/20/19 baclofen 10 mg tablet 10 mg PO BID #180 tab-cap 11/01/18 05/20/19 ranitidine HCl 150 mg tablet 150 mg PO BID PRN tab-cap 12/25/18 05/20/19 sertraline 100 mg tablet 200 mg PO DAILY #180 tab 12/25/18 05/20/19 acetaminophen 500 mg tablet 1,000 mg PO TID tab 03/26/19 05/20/19 celecoxib 200 mg capsule 200 mg PO BID #60 cap 03/26/19 05/20/19 prochlorperazine maleate 10 mg 10 mg PO Q6H PRN tab 03/26/19 05/20/19 tablet fentanyl 25 mcg/hr transdermal 1 patch TD Q72H #10 each MDD 1 04/30/19 05/20/19 patch gabapentin 300 mg capsule 900 mg PO BID #540 tab-cap 04/30/19 05/20/19 lorazepam 1 mg tablet 1 mg PO Q4H PRN #90 tab MDD 4 04/30/19 05/20/19 Oxygen #1 each 05/07/19 05/12/19 atorvastatin 80 mg tablet 80 mg PO DAILY #90 tab 05/07/19 05/20/19 dexamethasone 4 mg tablet 4 mg PO DAILY 05/07/19 05/20/19 ciprofloxacin HCl 500 mg tablet 500 mg PO BID #14 tab 05/12/19 05/20/19 Previous Rx's Medication Instructions Recorded trazodone 100 mg tablet 100 mg PO DAILY #90 tab-cap 10/13/18 baclofen 10 mg tablet 10 mg PO BID #180 tab-cap 11/01/18 sertraline 100 mg tablet 200 mg PO DAILY #180 tab 12/25/18 celecoxib 200 mg capsule 200 mg PO BID #60 cap 03/26/19 fentanyl 25 mcg/hr transdermal 1 patch TD Q72H #10 each MDD 1 04/30/19 patch gabapentin 300 mg capsule 900 mg PO BID #540 tab-cap 04/30/19 lorazepam 1 mg tablet 1 mg PO Q4H PRN #90 tab MDD 4 04/30/19 atorvastatin 80 mg tablet 80 mg PO DAILY #90 tab 05/07/19 ciprofloxacin HCl 500 mg tablet 500 mg PO BID #14 tab 05/12/19 Allergies Allergy/AdvReac Type Severity Reaction Status Date / Time bupropion Allergy Intermediate Hives Verified 05/20/19 10:16 Tricyclic Compounds Allergy Intermediate Hives Verified 05/20/19 10:16 omeprazole AdvReac Intermediate Diarrhea Verified 05/20/19 10:16 isosorbide mononitrate AdvReac Headache Verified 05/20/19 10:16 [From Imdur] ketorolac [From Toradol] AdvReac Headache Unverified 05/20/19 10:16 General VIRIDIANA: 2 Review of Systems Review of Systems All systems reviewed & are unremarkable except as noted in HPI and below Constitutional Denies chills, Denies fever(s) and Denies weakness Cardiovascular Denies chest pain and Denies dyspnea Respiratory Denies cough and Denies dyspnea Gastrointestinal Denies abdominal pain, Denies nausea and Denies vomiting Genitourinary Denies dysuria Musculoskeletal Denies joint swelling Neurologic Denies weakness Endocrine Denies heat intolerance PFSH Family History (Updated 03/26/19 @ 09:06 by Devorah Holley RN) Daughter No problems noted. Son No problems noted. Mother Aneurysm Father Aortic aneurysm Social History (Updated 05/07/19 @ 09:12 by Deb Mckeon RN) Smoking/Tobacco Use Status: Former Tobacco Use Quit Date: 09/17/17 Drug use: Never Household members: significant other Housing: house Pets and animals: Yes ([facility]) Pets and animals: cat(s) Do you feel safe in your relationship?: Yes Exam Const General: no acute distress Orientation: alert HENMT Head: normal to inspection Ears: external ears normal General nose exam: external nose normal Mouth: moist mucous membranes Eyes General: appearance normal, both eyes and all related structures Neck Neck: normal visual inspection Resp Effort & Inspection: tachypneic Cardio Rate: regular rate Skin General skin exam: no rashes or lesions noted Neuro General: alert and oriented x3 Extrem General: normal to inspection Psych Mental Status: mental status grossly normal
[2019-05-20] MEDS: Albuterol/Ipratropium 3 ML UPD VIAL ×2 (10:21→11:25)
[2019-05-20 10:24] LABS: Abs Immature Grans 0.43 k/cumm (0.0-0.09); HCT 35.1 % (40.0-50.0); HGB 11.4 g/dL (13.5-17.5); Mean Corp. HGB Concentration 32.5 g/dL (32.0-36.0); Mean Corpuscular Volume 92.4 fL (80-95); Mean Platelet Volume 9.9 fL (8.0-11.0); RBC Distribution Width 27.5 % (11.8-14.1); White Blood Cell Count 9.92 k/cumm (4.4-10.8)
[2019-05-20 10:39] LABS: INR 1.2 (0.9-1.1); PTT Activated 24.3 sec (21.0-31.4); Prothrombin Time 11.6 sec (9.3-11.0)
[2019-05-20 10:43] LABS: Absolute Lymphocyte Count 1.49 k/cumm (1.2-3.4); Absolute Monocyte Count 0.89 k/cumm (0.11-0.7); Absolute Neutrophil Count 7.44 k/cumm (1.2-6.7)
[2019-05-20 10:44] LABS: Anisocytosis 3+; Diff Comment Manual Differential; Platelet Count 291 x1000/uL (130-400); Poikilocytes 1+; Polychromasia Present
[2019-05-20 10:59] LABS: ALT 35 U/L (16-63); AST 32 U/L (15-37); Albumin 2.9 g/dL (3.4-5.0); Alkaline Phosphatase 103 U/L (46-116); Anion Gap 16.8 mmol/L (3-11); BUN 32 mg/dL (7-18); Bilirubin, Total 0.9 mg/dL (0.2-1.0); CO2 18.2 mmol/L (21.0-32.0); CREATININE 1.26 mg/dL (0.70-1.30); Calcium 8.4 mg/dL (8.5-10.1); Chloride 110 mmol/L (98-107); Estimated GFR 57.26 (mL/min/1.73m2); Glucose 159 mg/dL (70-100); Magnesium 2.1 mg/dL (1.8-2.4); NT-proBNP 8781 pg/mL; Sodium 145 mmol/L (136-145); Total Protein 6.6 g/dL (6.4-8.2); Troponin I 0.06 ng/mL (0.00-0.06)
[2019-05-20] MEDS: Omnipaque 350 MG/ML 100 ML BTL IJ (11:00)
[2019-05-20 12:17] LABS: HCO3 17 mmol/L (22-28); pCO2 28 mmHg (34-47); pH 7.39 (7.35-7.45); sO2 68 % (94-98); tCO2 16 mmol/L (22-29)
[2019-05-20 12:26] LABS: BE -8.2 mmol/L (-3-3); Site Right Radial; pO2 37 mmHg (83-108)
[2019-05-20 12:27] LABS: FIO2L 3 L
[2019-05-20 13:25] LABS: Site Right Radial
[2019-05-20 13:26] LABS: FIO2 59 %; HCO3 17 mmol/L (22-28); pCO2 26 mmHg (34-47); pO2 65 mmHg (83-108); sO2 93 % (94-98); tCO2 16 mmol/L (22-29)
[2019-05-20] MEDS: cefTRIAXone 2 GM/50 ML BAG IVPB (14:16)
[2019-05-20 14:24] LABS: Bilirubin Negative (Negative); Blood Negative (Negative); Clarity Clear (Clear); Glucose Negative (Negative); Ketones 15 mg/dL (Negative); Leukocyte Esterase Negative (Negative); Nitrite Negative (Negative); Specific Gravity 1.015 (1.005-1.025); pH 5.5 (5-8)
[2019-05-20 14:34] LABS: Bacteria Rare HPF (Negative); C & S Indicated? No; Crystals Negative HPF (Negative); Epithelial Cells Rare HPF (Negative); Mucus Moderate (Negative); RBC Negative (0-2); WBC 0-2 HPF (0-5)
[2019-05-20] MEDS: Acetaminophen 500 MG TAB 1000 MG PO ×2 (16:02→21:10)
[2019-05-20] MEDS: Enoxaparin 40 MG/0.4 ML SYR SC (16:02)
--- NOTE | 2019-05-20 16:02 | W.PM.HP.N ---
Date of service: 05/20/19 Time of Service: 16:02 Assessment and Plan (1) COPD (chronic obstructive pulmonary disease): Current visit: Yes Status: Chronic Initial wheezing has dissipated, with good airflow. No evidence of infiltrates or PE by CT Scan. - Continue high dose IV Steroids, and given change in cough and sputum would benefit from Abx. - Continue standing duonebs, initiate nebulized budesonide, and frequent prn Levalbuterol. Low dose Morphine if needed. - Highly recommended BiPAP therapy for ease of breathing but refused by patient. - Will also ensure Palliative follow-up. (2) Squamous cell lung cancer: Current visit: No Status: Acute Currently following with [place] [facility] - receiving Chemo and XRT. (3) High anion gap metabolic acidosis: Current visit: Yes Status: Acute Evidence of a compensated, anion gap metabolic acidosis with a Respiratory Alkalosis - unknown etiology. - Given significant initial Hypoxia question potential hypoperfusion - Will check Lactic Acid. Also with hx CAD - ECG reviewed and non-ischemic. Rule out with serial troponin. - Mild ketones in urine, but no history of DM - highly doubt DKA. Also denies any EtOH - also doubt AKA. Also denies ingestion (is on daily aspirin, but once a day low dose only). - No evidence of DAISY or uremia. Monitor closely, especially given respiratory status, for worsening tachypnea. Repeat ABG in the morning. (4) DVT prophylaxis: Current visit: Yes Status: Acute SC Lovenox. Ensure PPI for GI protection as well. (5) Advance directive discussed with patient: Current visit: Yes Status: Acute DNR/DNI Following lengthy conversation at time of admission. History of Present Illness Chief Complaint: Dyspnea Narrative: 68 year old man with a prior history of COPD and Lung Ca, being admitted from [facility] Emergency Department on 05/20 with a diagnosis of Acute COPD Exacerbation. Mr. Ambrose has a Past Medical History significant for likely end-stage COPD on Home O2, and RUL NSCLCa diagnosed in January of 2019. 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 His other history includes A1 Antitrypsin Deficiciency (Heterozygous), CAD s/p BASILIO to LAD in 2015, Polyclonal Gammopathy, Bladder Ca s/p BCG injections in 2012, HTN, Cancer related pain on chronic opiate therapy, and GERD. He also reports a 100+ pack year history of tobacco use. The patient was reportedly experiencing mildly worsening dyspnea, acutely deteriorating this am necesitating EMS service with transport to the ED. His work-up was pertinent for a low bicarb and elevated anion gap, Elevated BNP, and normal urinalysis. ABG was requested and showed a normal PH, with significant hypoxia, and a low PCO2. CT of the chest showed a lack of Pulmonary Emboli, decrease in the size of the RUL mass, and pathologic fracture of the sternum. He was noted to have significant wheezing, and was administered IV Steroids and High Flow Oxygen. His repeat ABG showed improvement in oxygen levels, with continuously low pCO2 and normal PH. He was referred for admission. Of note, following a lengthy discussion with the patient, code status was changed to DNR/DNI. Respiratory Therapist was present during this discussion. Also, following the initial meeting Mr. Ambrose's daughters arrived and requested a formal transfer to [facility]. Attempts by the ED to facilitate this failed due to lack of bed availability and acceptance of patient in transfer. During a repeat family meeting it was explained that Mr. Ambrose is fairly sick from a respiratory standpoint given his diagnosis of significant COPD and underlying malignancy, and that his prognosis may be poor despite best medical efforts. Review of Systems Review of Systems All systems reviewed & are unremarkable except as noted in HPI and below PFSH Medical History Chronic low back pain COPD (chronic obstructive pulmonary disease) Essential hypertension GERD (gastroesophageal reflux disease) MEGAN on CPAP Family History Daughter No problems noted. Son No problems noted. Mother Aneurysm Father Aortic aneurysm Social History Smoking/Tobacco Use Status: Former Tobacco Use Quit Date: 09/17/17 Drug use: Never Household members: significant other Housing: house Pets and animals: Yes ([facility]) Pets and animals: cat(s) Do you feel safe in your relationship?: Yes Meds Home Medications Medication Instructions Recorded Confirmed Type Aspirin 1 tab PO DAILY 12/31/12 05/20/19 History albuterol sulfate [Proair Hfa] 1 - 2 puff INHALATION QID PRN #2 12/25/16 05/20/19 History inhaler nitroglycerin 0.4 mg SUBLINGUAL Q6H PRN PRN #25 06/27/17 05/20/19 History tab-cap trazodone 100 mg tablet 100 mg PO DAILY #90 tab-cap 10/13/18 05/20/19 Rx baclofen 10 mg tablet 10 mg PO BID #180 tab-cap 11/01/18 05/20/19 Rx ranitidine HCl 150 mg tablet 150 mg PO BID PRN tab-cap 12/25/18 05/20/19 History sertraline 100 mg tablet 200 mg PO DAILY #180 tab 12/25/18 05/20/19 Rx acetaminophen 500 mg tablet 1,000 mg PO TID tab 03/26/19 05/20/19 History celecoxib 200 mg capsule 200 mg PO BID #60 cap 03/26/19 05/20/19 Rx prochlorperazine maleate 10 mg 10 mg PO Q6H PRN tab 03/26/19 05/20/19 History tablet fentanyl 25 mcg/hr transdermal 1 patch TD Q72H #10 each MDD 1 04/30/19 05/20/19 Rx patch gabapentin 300 mg capsule 900 mg PO BID #540 tab-cap 04/30/19 05/20/19 Rx lorazepam 1 mg tablet 1 mg PO Q4H PRN #90 tab MDD 4 04/30/19 05/20/19 Rx Oxygen #1 each 05/07/19 05/12/19 History atorvastatin 80 mg tablet 80 mg PO DAILY #90 tab 05/07/19 05/20/19 Rx dexamethasone 4 mg tablet 4 mg PO DAILY 05/07/19 05/20/19 History ciprofloxacin HCl 500 mg tablet 500 mg PO BID #14 tab 05/12/19 05/20/19 Rx Allergies Allergy/AdvReac Type Severity Reaction Status Date / Time bupropion Allergy Intermediate Hives Verified 05/20/19 10:16 Tricyclic Compounds Allergy Intermediate Hives Verified 05/20/19 10:16 omeprazole AdvReac Intermediate Diarrhea Verified 05/20/19 10:16 isosorbide mononitrate AdvReac Headache Verified 05/20/19 10:16 [From Imdur] ketorolac [From Toradol] AdvReac Headache Unverified 05/20/19 10:16 Exam Narrative Exam Narrative: General: Patient appears uncomfortable and chronically ill but not acutely toxic, AAOX3 Neck: Supple CV: Regular, nontachycardic, S1S2, No rubs, murmurs, or gallops. Pulmonary: Clear to auscultation bilaterally, no crackles, wheezing, or rhonchi Abdomen: + Bowel Sounds, soft, nontender, nondistended Vascular: No lower extremity edema Neurologic: CN II-XII grossly intact. No focal deficits. Psych: Normal mood and affect. Results Labs : 05/20/19 10:12 05/20/19 10:12 Laboratory Results - last 24 hr 05/20/19 05/20/19 05/20/19 10:12 10:12 10:12 WBC 9.92 RBC 3.80 L Hgb 11.4 L Hct 35.1 L MCV 92.4 MCH 30.0 MCHC 32.5 RDW 27.5 H Plt Count 291 D MPV 9.9 Immature Gran % See Differential Neutrophils % 66.0 Band Neutrophils % 9.0 Lymphocytes % 15.0 Monocytes % 9.0 Eosinophils % 1.0 Basophils % 0.0 Absolute Neutrophils 7.44 H Absolute Lymphocytes 1.49 Absolute Monocytes 0.89 H Absolute Eosinophils 0.10 Absolute Basophils 0.00 Differential Comment Manual differential RBC Morphology See below Polychromasia Present Poikilocytosis 1+ Anisocytosis 3+ PT 11.6 H INR 1.2 H APTT 24.3 Sample Site pCO2 pO2 O2 Saturation ABG pH ABG HCO3 ABG Total CO2 ABG Base Excess Oxygen Liter Flow FiO2 Sodium 145 Potassium 4.0 Chloride 110 H Carbon Dioxide 18.2 L Anion Gap 16.8 H BUN 32 H Creatinine 1.26 Estimated GFR/1.73 m2 57.26 Glucose 159 H Calcium 8.4 L Magnesium 2.1 Total Bilirubin 0.9 AST 32 ALT 35 Alkaline Phosphatase 103 Troponin I 0.06 NT-Pro-B Natriuret Pep 8781 H Total Protein 6.6 Albumin 2.9 L Urine Color Urine Clarity Urine pH Ur Specific Hoffman Urine Protein Urine Ketones Urine Blood Urine Nitrite Urine Bilirubin Urine Urobilinogen Ur Leukocyte Esterase Urine RBC Urine WBC Ur Epithelial Cells Urine Crystals Urine Bacteria Urine Casts Urine Mucus Ur Culture Indicated? Urine Glucose 05/20/19 05/20/19 05/20/19 11:52 13:03 14:19 WBC RBC Hgb Hct MCV MCH MCHC RDW Plt Count MPV Immature Gran % Neutrophils % Band Neutrophils % Lymphocytes % Monocytes % Eosinophils % Basophils % Absolute Neutrophils Absolute Lymphocytes Absolute Monocytes Absolute Eosinophils Absolute Basophils Differential Comment RBC Morphology Polychromasia Poikilocytosis Anisocytosis PT INR APTT Sample Site Right radial Right radial pCO2 28 L 26 L pO2 37 L* 65 L O2 Saturation 68 L 93 L ABG pH 7.39 7.40 ABG HCO3 17 L 17 L ABG Total CO2 16 L 16 L ABG Base Excess -8.2 L -9.0 L Oxygen Liter Flow 3 FiO2 59 Sodium Potassium Chloride Carbon Dioxide Anion Gap BUN Creatinine Estimated GFR/1.73 m2 Glucose Calcium Magnesium Total Bilirubin AST ALT Alkaline Phosphatase Troponin I NT-Pro-B Natriuret Pep Total Protein Albumin Urine Color Talia Urine Clarity Clear Urine pH 5.5 Ur Specific Hoffman 1.015 Urine Protein Trace H Urine Ketones 15 H Urine Blood Negative Urine Nitrite Negative Urine Bilirubin Negative Urine Urobilinogen 1.0 H Ur Leukocyte Esterase Negative Urine RBC Negative Urine WBC 0-2 Ur Epithelial Cells Rare Urine Crystals Negative Urine Bacteria Rare Urine Casts Comment Urine Mucus Moderate Ur Culture Indicated? No Urine Glucose Negative Last Vital Signs Temp 36.7 C 05/20/19 15:12 Pulse 112 H 05/20/19 14:31 Resp 18 05/20/19 14:31 BP 116/74 05/20/19 14:31 Pulse Ox 94 L 05/20/19 14:31
[2019-05-20] MEDS: methylPREDNISolone SUCC 125 MG VIAL 60 MG IVP ×2 (16:03→21:11)
[2019-05-20] MEDS: Normal Saline Flush 10 ML SYR IVP (16:03)
[2019-05-20] MEDS: Albuterol/Ipratropium 3 ML UPD VIAL UPD ×2 (16:20→20:05)
--- NOTE | 2019-05-20 18:27 | PCNE_ITS ---
Date of service: 05/20/19 Time of Service: 18:27 History of Present Illness Chief Complaint: Unable to get enough oxygen. Narrative: I was asked by the hospitalist to see Jose Bishop who was admitted for hypoxia. He has beeen my Palliative pt for about 3 weeks. He has metastatic lung cancer, has undergone radiation and chemotherapy and was planning on going thru a restaging CT and meeting with his Oncologist on 05/22/2019. Last week he developed a UTI and was treated. About 3 days ago his breathing worsened. Today he was acutely hypoxia. He and his S.O., Smitha decided his breathing was so bad that they needed to go to the ER for help. In the ER he was hypoxic, given IV steroids and started on high flow O2. He had a CT Scan which was negative for PE and showed a pathologic fracture through the sternum and reduction of his RUL mass. He was admitted for further care. Consults Consult date: 05/20/19 Requesting physician: Umair Dyer Assessment and Plan (1) Advance directive discussed with patient: Current visit: Yes Status: Acute (2) COPD (chronic obstructive pulmonary disease): Current visit: Yes Status: Chronic (3) Squamous cell lung cancer: Current visit: No Status: Acute Jose is processing all with his happened in the last few days. He has spoken at length with hospitalist regarding CODE STATUS. He understands that undergoing CPR on a sternum with a fracture already through it would be senseless. Still he wants to live longer. He was willing to complete a CO LST form with me today. We had been speaking at this since our first meeting. He wanted to discuss this with his family. He feels that his children now understand his severity of his illness and that his life span is limited. He is in hopes that the medication that he is receiving presently will improve his breathing condition. Smitha states that all of this is way too quick and is upset understandably Plan is to see how things are over the next few days. I did ask him to consider hospice for the future. He does not feel that he has less than 6 months to live at this point. I have had the images pushed to [facility] and will contact his oncologist on . Although he does have a fracture in his sternum by recent CT scan, the lung mass appears to be smaller now than what it had been March 31 I will see can on Sunday. Thank you very much for this consult. I have spoken with the hospitalist prior to meeting with Jose about his overall condition and prognosis. I have spent more than 50% of time in counseling with this patient. This document was created by [employer] recognition and may contain grammatical and translation errors. Review of Systems Review of Systems He said he is starting to feel better, but felt he was in a bad place this AM. He is very concerned about the future and whether this is how his life is going to be, being short of breath and anxious Constitutional Reports body ache(s), Reports fatigue, Reports poor appetite, Reports weakness and Reports weight loss Eyes Reports system reviewed and no additional complaints, except as docu Cardiovascular Reports chest pain, Reports lightheadedness, Reports dyspnea and Reports dyspnea on exertion Respiratory Reports pain with cough, Reports dyspnea and Reports dyspnea on exertion Gastrointestinal Reports system reviewed and no additional complaints, except as docu Genitourinary Reports system reviewed and no additional complaints, except as docu Musculoskeletal Reports system reviewed and no additional complaints, except as docu Neurologic Reports weakness Psychiatric Reports abnormal sleep pattern and Reports depression Endocrine Reports fatigue FOR[facility]LY [facility], [facility] Medical History Chronic low back pain COPD (chronic obstructive pulmonary disease) Essential hypertension GERD (gastroesophageal reflux disease) MEGAN on CPAP Family History Daughter No problems noted. Son No problems noted. Mother Aneurysm Father Aortic aneurysm Social History Smoking/Tobacco Use Status: Former Tobacco Use Quit Date: 09/17/17 Drug use: Never Household members: significant other Housing: house Pets and animals: Yes ([facility]) Pets and animals: cat(s) Do you feel safe in your relationship?: Yes Exam Narrative Exam Narrative: He is lying in bed. He looks to Smitha, his significant other to answer many of his questions. Patient Name: JOSE BISHOP #: [id number]: ER Ordering Provider: Quique Reyez M.D. : REG ER Primary Care Provider: Malka Sandhu M.D.Date of Exam: 05/20/19Sex: M : 3Age: 68 Exam(s) a CT:CT chest PE CTA SYMPTOM/DIAGNOSIS: LUNG CANCER, SHORTNESS OF BREATH. CHEST CT FOR PULMONARY EMBOLISM CT angiography was performed with multi slice acquisition and multi planar and 3D reconstruction. Comparison is made with 31 March 2019. The aorta and pulmonary arteries are well opacified with IV contrast. There are no pulmonary emboli or evidence of aortic dissection. There has been interval decrease in size of the previously noted mass in the medial right upper lobe. There are central areas of necrosis. There are severe underlying emphysematous changes and changes of honeycombing throughout the lungs. There is pleural thickening posteriorly in the right upper lobe. There has also been decrease in size of right hilar adenopathy and in the previously noted pericardial effusion. There is now a fracture in the mid sternum. Previous tumor invasion in to the sternum was noted. Degenerative changes are seen in the thoracic spine. No lytic or blastic lesions are identified in the spine. No rib fractures or pneumothorax is seen. IMPRESSION: 1. Pathologic fracture of the sternum. 2. Decreased size of the anteromedial right upper lobe mass adjacent to the sternum [id number]: To Const General: cooperative, no acute distress and frail appearing Nutritional Appearance: thin Orientation: oriented x3 HENMT Head: no palpable skull fracture Ears: hearing grossly normal bilaterally and external ears normal General nose exam: external nose normal Face and sinus: normal facial exam Eyes General: appearance normal, both eyes and all related structures Cornea: corneas normal Neck Carotids: normal carotid upstroke Chest Chest: tenderness Resp Auscultation: wheezes Cardio Rate: tachycardic GI Palpation: soft Psych Appearance: other Mental Status: mental status grossly normal Speech and Movement: speech clear and slowed movement Mood: anxious mood and dysthymic mood Affect: sad Attitude: cooperative Thought Process: other (He is processing all that has happened in the last few days) Insight: fair Judgment: fair Results Last Vital Signs Temp 98.4 F 05/20/19 15:30 Pulse 107 H 05/20/19 17:16 Resp 14 05/20/19 17:20 BP 146/97 H 05/20/19 17:16 Pulse Ox 89 L 05/20/19 17:20 Labs : 05/20/19 10:12 05/20/19 10:12 Laboratory Results - last 24 hr 05/20/19 05/20/19 05/20/19 10:12 10:12 10:12 WBC 9.92 RBC 3.80 L Hgb 11.4 L Hct 35.1 L MCV 92.4 MCH 30.0 MCHC 32.5 RDW 27.5 H Plt Count 291 D MPV 9.9 Immature Gran % See Differential Neutrophils % 66.0 Band Neutrophils % 9.0 Lymphocytes % 15.0 Monocytes % 9.0 Eosinophils % 1.0 Basophils % 0.0 Absolute Neutrophils 7.44 H Absolute Lymphocytes 1.49 Absolute Monocytes 0.89 H Absolute Eosinophils 0.10 Absolute Basophils 0.00 Differential Comment Manual differential RBC Morphology See below Polychromasia Present Poikilocytosis 1+ Anisocytosis 3+ PT 11.6 H INR 1.2 H APTT 24.3 Sample Site pCO2 pO2 O2 Saturation ABG pH ABG HCO3 ABG Total CO2 ABG Base Excess Oxygen Liter Flow FiO2 Sodium 145 Potassium 4.0 Chloride 110 H Carbon Dioxide 18.2 L Anion Gap 16.8 H BUN 32 H Creatinine 1.26 Estimated GFR/1.73 m2 57.26 Glucose 159 H Calcium 8.4 L Magnesium 2.1 Total Bilirubin 0.9 AST 32 ALT 35 Alkaline Phosphatase 103 Troponin I 0.06 NT-Pro-B Natriuret Pep 8781 H Total Protein 6.6 Albumin 2.9 L Urine Color Urine Clarity Urine pH Ur Specific [place] Urine Protein Urine Ketones Urine Blood Urine Nitrite Urine Bilirubin Urine Urobilinogen Ur Leukocyte Esterase Urine RBC Urine WBC Ur Epithelial Cells Urine Crystals Urine Bacteria Urine Casts Urine Mucus Ur Culture Indicated? Urine Glucose 05/20/19 05/20/19 05/20/19 11:52 13:03 14:19 WBC RBC Hgb Hct MCV MCH MCHC RDW Plt Count MPV Immature Gran % Neutrophils % Band Neutrophils % Lymphocytes % Monocytes % Eosinophils % Basophils % Absolute Neutrophils Absolute Lymphocytes Absolute Monocytes Absolute Eosinophils Absolute Basophils Differential Comment RBC Morphology Polychromasia Poikilocytosis Anisocytosis PT INR APTT Sample Site Right radial Right radial pCO2 28 L 26 L pO2 37 L* 65 L O2 Saturation 68 L 93 L ABG pH 7.39 7.40 ABG HCO3 17 L 17 L ABG Total CO2 16 L 16 L ABG Base Excess -8.2 L -9.0 L Oxygen Liter Flow 3 FiO2 59 Sodium Potassium Chloride Carbon Dioxide Anion Gap BUN Creatinine Estimated GFR/1.73 m2 Glucose Calcium Magnesium Total Bilirubin AST ALT Alkaline Phosphatase Troponin I NT-Pro-B Natriuret Pep Total Protein Albumin Urine Color [place] Urine Clarity Clear Urine pH 5.5 Ur Specific [place] 1.015 Urine Protein Trace H Urine Ketones 15 H Urine Blood Negative Urine Nitrite Negative Urine Bilirubin Negative Urine Urobilinogen 1.0 H Ur Leukocyte Esterase Negative Urine RBC Negative Urine WBC 0-2 Ur Epithelial Cells Rare Urine Crystals Negative Urine Bacteria Rare Urine Casts Comment Urine Mucus Moderate Ur Culture Indicated? No Urine Glucose Negative
[2019-05-20] MEDS: Budesonide 0.5 MG/2 ML UPD VIAL UPD (18:55)
[2019-05-20] MEDS: Gabapentin 300 MG CAP 900 MG PO (20:06)
[2019-05-20] MEDS: Atorvastatin 40 MG TAB 80 MG PO (20:06)
[2019-05-20] MEDS: Baclofen 10 MG TAB PO (20:06)
[2019-05-20] MEDS: Celecoxib 200 MG CAP PO (20:06)
[2019-05-20] MEDS: traZODone 100 MG TAB PO (21:10)
[2019-05-20] MEDS: LORazepam 1 MG TAB PO (22:28)
[2019-05-20 22:44] LABS: Lactate 1.9 mmol/L (0.6-1.4)
[2019-05-20 23:04] LABS: Troponin I 2.13 ng/mL (0.00-0.06)
--- NOTE | 2019-05-20 23:11 | NUR.NOTE ---
1899- DR. Beckham came in and did a palliative care consult. asked this nurse to have new colst form put in the EMR, faxed to [facility] and [facility]. These were all done. Also asked to have radiology electronically send CT scan done today to [facility] and the call was made.
--- NOTE | 2019-05-20 23:28 | W.PM.PROGNOT ---
Date of Service Date of service: 05/20/19 Time of Service: 23:29 Subjective Interval history since last seen: Called for + troponin. Case reviewed, briefly patient with lung CA and COPD in with COPD exacerbation, presenting with profound hypoxia. Currently on steroids, updrafts and Rocephin. On baseline ASA. Says he is feeling much better, and specifically denies CP. On exam BP 119/85, pulse 88, O2 sats low 90s, Lungs diminished but clear; heart distant but RRR. Troponin #1 negative, number #2 (10 hours) 2.3; EKG shows minor STTW findings, no change from ear;ier today.. A/P: No evidence of ongoing ischemia, i think this very likely represents ischemic insult secondary to prolonged and severe hypoxia. No need for further specific intervention at this time. Hemodynamics satisfactory and no clinical signs volume overload.Will continue on baseline ASA and repeat troponin in AM. Objective Objective Clinical Data: Abnormal lab results 05/20/19 05/20/19 05/20/19 Range/Units 10:12 10:12 10:12 RBC 3.80 L (4.50-6.00) m/cumm Hgb 11.4 L (13.5-17.5) g/dL Hct 35.1 L (40.0-50.0) % RDW 27.5 H (11.8-14.1) % Absolute Neutrophils 7.44 H (1.2-6.7) k/cumm Absolute Monocytes 0.89 H (0.11-0.7) k/cumm PT 11.6 H (9.3-11.0) sec INR 1.2 H (0.9-1.1) pCO2 (34-47) mmHg pO2 (83-108) mmHg O2 Saturation (94-98) % ABG HCO3 (22-28) mmol/L ABG Total CO2 (22-29) mmol/L ABG Base Excess (-3-3) mmol/L Chloride 110 H (98-107) mmol/L Carbon Dioxide 18.2 L (21.0-32.0) mmol/L Anion Gap 16.8 H (3-11) mmol/L BUN 32 H (7-18) mg/dL Glucose 159 H (70-100) mg/dL Lactate (0.6-1.4) mmol/L Calcium 8.4 L (8.5-10.1) mg/dL Troponin I (0.00-0.06) ng/mL NT-Pro-B Natriuret Pep 8781 H ( - 299) pg/mL Albumin 2.9 L (3.4-5.0) g/dL Urine Protein (Negative) mg/dL Urine Ketones (Negative) mg/dL Urine Urobilinogen (Up TO 0.2) EU/dL 05/20/19 05/20/19 05/20/19 Range/Units 11:52 13:03 14:19 RBC (4.50-6.00) m/cumm Hgb (13.5-17.5) g/dL Hct (40.0-50.0) % RDW (11.8-14.1) % Absolute Neutrophils (1.2-6.7) k/cumm Absolute Monocytes (0.11-0.7) k/cumm PT (9.3-11.0) sec INR (0.9-1.1) pCO2 28 L 26 L (34-47) mmHg pO2 37 L* 65 L (83-108) mmHg O2 Saturation 68 L 93 L (94-98) % ABG HCO3 17 L 17 L (22-28) mmol/L ABG Total CO2 16 L 16 L (22-29) mmol/L ABG Base Excess -8.2 L -9.0 L (-3-3) mmol/L Chloride (98-107) mmol/L Carbon Dioxide (21.0-32.0) mmol/L Anion Gap (3-11) mmol/L BUN (7-18) mg/dL Glucose (70-100) mg/dL Lactate (0.6-1.4) mmol/L Calcium (8.5-10.1) mg/dL Troponin I (0.00-0.06) ng/mL NT-Pro-B Natriuret Pep ( - 299) pg/mL Albumin (3.4-5.0) g/dL Urine Protein Trace H (Negative) mg/dL Urine Ketones 15 H (Negative) mg/dL Urine Urobilinogen 1.0 H (Up TO 0.2) EU/dL 05/20/19 05/20/19 Range/Units 22:33 22:33 RBC (4.50-6.00) m/cumm Hgb (13.5-17.5) g/dL Hct (40.0-50.0) % RDW (11.8-14.1) % Absolute Neutrophils (1.2-6.7) k/cumm Absolute Monocytes (0.11-0.7) k/cumm PT (9.3-11.0) sec INR (0.9-1.1) pCO2 (34-47) mmHg pO2 (83-108) mmHg O2 Saturation (94-98) % ABG HCO3 (22-28) mmol/L ABG Total CO2 (22-29) mmol/L ABG Base Excess (-3-3) mmol/L Chloride (98-107) mmol/L Carbon Dioxide (21.0-32.0) mmol/L Anion Gap (3-11) mmol/L BUN (7-18) mg/dL Glucose (70-100) mg/dL Lactate 1.9 H (0.6-1.4) mmol/L Calcium (8.5-10.1) mg/dL Troponin I 2.13 H* (0.00-0.06) ng/mL NT-Pro-B Natriuret Pep ( - 299) pg/mL Albumin (3.4-5.0) g/dL Urine Protein (Negative) mg/dL Urine Ketones (Negative) mg/dL Urine Urobilinogen (Up TO 0.2) EU/dL Vital Signs Temperature 36.9 C 05/20/19 20:15 Temperature Source Tympanic 05/20/19 20:15 Pulse 89 05/20/19 23:00 Pulse 92 H 05/20/19 23:00 Respiratory Rate 16 05/20/19 23:00 Respiratory Effort Accessory Muscle Use 05/20/19 20:15 Respiratory Depth Normal 05/20/19 20:15 Respiratory Pattern Normal 05/20/19 20:15 Blood Pressure 119/85 05/20/19 23:00 Blood Pressure Mean 92 05/20/19 23:00 Blood Pressure Position Supine 05/20/19 15:12 Pulse Oximetry 93 L 05/20/19 23:00 Oxygen Delivery Method Hi Flow Nasal Cannula 05/20/19 16:20 Oxygen Flow Rate 30 05/20/19 20:32 Fraction of Inspired Oxygen (FIO2) 54 05/20/19 20:32 Pain Level 0 05/20/19 20:15 Intake & Output 05/19/19 05/20/19 05/20/19 23:59 11:59 23:59 Intake Total 1999 125 2124 Output Total 350 / 350 Balance 1999 -1774 Weight 82.9 kg 82.9 kg Intake: IV 1999 Oral 125 / 125 Output: Urine 350 / 350 Other: Urine Color Dark Sena Urine Appearance Clear Urine Odor None Comment states he is getting over a UTI in which he had trouble voiding and burning. this is mostly but not completely resolved. Pt hasused urinal to void 200cc's of dark sena urine Voiding Methods Urinal Laboratory Results WBC 9.92 k/cumm (4.4-10.8) 05/20/19 10:12 RBC 3.80 m/cumm (4.50-6.00) L 05/20/19 10:12 Hgb 11.4 g/dL (13.5-17.5) L 05/20/19 10:12 Hct 35.1 % (40.0-50.0) L 05/20/19 10:12 MCV 92.4 fL (80-95) 05/20/19 10:12 MCH 30.0 pg (27.0-33.0) 05/20/19 10:12 MCHC 32.5 g/dL (32.0-36.0) 05/20/19 10:12 RDW 27.5 % (11.8-14.1) H 05/20/19 10:12 Plt Count 291 x1000/uL (130-400) D 05/20/19 10:12 MPV 9.9 fL (8.0-11.0) 05/20/19 10:12 Immature Gran % See Differential 05/20/19 10:12 66.0 05/20/19 10:12 9.0 % 05/20/19 10:12 15.0 05/20/19 10:12 9.0 05/20/19 10:12 1.0 05/20/19 10:12 0.0 05/20/19 10:12 Absolute Neutrophils 7.44 k/cumm (1.2-6.7) H 05/20/19 10:12 Absolute Lymphocytes 1.49 k/cumm (1.2-3.4) 05/20/19 10:12 Absolute Monocytes 0.89 k/cumm (0.11-0.7) H 05/20/19 10:12 Absolute Eosinophils 0.10 k/cumm (0.0-0.7) 05/20/19 10:12 Absolute Basophils 0.00 k/cumm (0.0-0.2) 05/20/19 10:12 Manual differential 05/20/19 10:12 RBC Morphology See below 05/20/19 10:12 Present 05/20/19 10:12 1+ 05/20/19 10:12 3+ 05/20/19 10:12 PT 11.6 sec (9.3-11.0) H 05/20/19 10:12 INR 1.2 (0.9-1.1) H 05/20/19 10:12 APTT 24.3 sec (21.0-31.4) 05/20/19 10:12 Sample Site Right radial 05/20/19 13:03 pCO2 26 mmHg (34-47) L 05/20/19 13:03 pO2 65 mmHg (83-108) L 05/20/19 13:03 O2 Saturation 93 % (94-98) L 05/20/19 13:03 ABG pH 7.40 (7.35-7.45) 05/20/19 13:03 ABG HCO3 17 mmol/L (22-28) L 05/20/19 13:03 ABG Total CO2 16 mmol/L (22-29) L 05/20/19 13:03 ABG Base Excess -9.0 mmol/L (-3-3) L 05/20/19 13:03 Oxygen Liter Flow 3 L 05/20/19 11:52 59 % 05/20/19 13:03 Sodium 145 mmol/L (136-145) 05/20/19 10:12 Potassium 4.0 mmol/L (3.5-5.1) 05/20/19 10:12 Chloride 110 mmol/L (98-107) H 05/20/19 10:12 Carbon Dioxide 18.2 mmol/L (21.0-32.0) L 05/20/19 10:12 16.8 mmol/L (3-11) H 05/20/19 10:12 BUN 32 mg/dL (7-18) H 05/20/19 10:12 1.26 mg/dL (0.70-1.30) 05/20/19 10:12 57.26 (mL/min/1.73m2) 05/20/19 10:12 Glucose 159 mg/dL (70-100) H 05/20/19 10:12 1.9 mmol/L (0.6-1.4) H 05/20/19 22:33 Calcium 8.4 mg/dL (8.5-10.1) L 05/20/19 10:12 Magnesium 2.1 mg/dL (1.8-2.4) 05/20/19 10:12 0.9 mg/dL (0.2-1.0) 05/20/19 10:12 AST 32 U/L (15-37) 05/20/19 10:12 ALT 35 U/L (16-63) 05/20/19 10:12 103 U/L (46-116) 05/20/19 10:12 2.13 ng/mL (0.00-0.06) H* 05/20/19 22:33 NT-Pro-B Natriuret Pep 8781 pg/mL (-299) H 05/20/19 10:12 6.6 g/dL (6.4-8.2) 05/20/19 10:12 2.9 g/dL (3.4-5.0) L 05/20/19 10:12 Sen[place] (Yellow) 05/20/19 14:19 Clear (Clear) 05/20/19 14:19 5.5 (5-8) 05/20/19 14:19 Ur Specific [place] 1.015 (1.005-1.025) 05/20/19 14:19 Trace mg/dL (Negative) H 05/20/19 14:19 15 mg/dL (Negative) H 05/20/19 14:19 Negative (Negative) 05/20/19 14:19 Negative (Negative) 05/20/19 14:19 Negative (Negative) 05/20/19 14:19 1.0 EU/dL (Up TO 0.2) H 05/20/19 14:19 Ur Leukocyte Esterase Negative (Negative) 09/03/19 14:19 Negative (0-2) 05/20/19 14:19 0-2 HPF (0-5) 05/20/19 14:19 Ur Epithelial Cells Rare HPF (Negative) 05/20/19 14:19 Negative HPF (Negative) 05/20/19 14:19 Rare HPF (Negative) 05/20/19 14:19 Comment LPF (Negative) 05/20/19 14:19 Moderate (Negative) 05/20/19 14:19 Ur Culture Indicated? No 05/20/19 14:19 Negative mg/dL (Negative) 05/20/19 14:19
[2019-05-21] VITALS (24 sets, daily range): BP systolic 100–146; BP diastolic 59–98; PULSE 83–99; RESP 8–23; TEMP 32–36.9; O2SAT 72–99
[2019-05-21] MEDS: Budesonide 0.5 MG/2 ML UPD VIAL UPD ×2 (06:33→18:36)
[2019-05-21] MEDS: methylPREDNISolone SUCC 125 MG VIAL 60 MG IVP ×4 (06:33→22:45)
[2019-05-21 06:46] LABS: Abs Immature Grans 0.05 k/cumm (0.0-0.09); Absolute Basophil Count 0.01 k/cumm (0.0-0.2); Absolute Monocyte Count 0.76 k/cumm (0.11-0.7); Absolute Neutrophil Count 10.65 k/cumm (1.2-6.7); Basophils % 0.1; HCT 29.7 % (40.0-50.0); HGB 9.5 g/dL (13.5-17.5); Immature Grans % 0.4; Lymphocytes % 3.4; Mean Corpuscular Hemoglobin 29.1 pg (27.0-33.0); Mean Corpuscular Volume 91.1 fL (80-95); Mean Platelet Volume 10.6 fL (8.0-11.0); Monocytes % 6.4; Neutrophils % 89.7; Platelet Count 211 x1000/uL (130-400); RBC 3.26 m/cumm (4.50-6.00); White Blood Cell Count 11.87 k/cumm (4.4-10.8)
[2019-05-21 07:07] LABS: Anion Gap 10.6 mmol/L (3-11); BUN 34 mg/dL (7-18); CO2 21.4 mmol/L (21.0-32.0); CREATININE 0.92 mg/dL (0.70-1.30); Calcium 8.2 mg/dL (8.5-10.1); Chloride 111 mmol/L (98-107); Glucose 143 mg/dL (70-100); Magnesium 2.1 mg/dL (1.8-2.4); Potassium 3.8 mmol/L (3.5-5.1); Sodium 143 mmol/L (136-145)
[2019-05-21 07:09] LABS: Troponin I 1.99 ng/mL (0.00-0.06)
[2019-05-21 07:14] LABS: Anisocytosis 3+; Diff Comment RBC Morph Reviewed; Macrocytosis 1+; Microcytosis 2+; Polychromasia Present
[2019-05-21 07:15] LABS: Poikilocytes 2+
[2019-05-21] MEDS: Celecoxib 200 MG CAP PO ×2 (08:01→20:01)
[2019-05-21] MEDS: Gabapentin 300 MG CAP 900 MG PO ×2 (08:01→20:01)
[2019-05-21] MEDS: Sertraline 50 MG TAB 200 MG PO (08:01)
[2019-05-21] MEDS: Aspirin E.C. 81 MG TABEC PO (08:01)
[2019-05-21] MEDS: Acetaminophen 500 MG TAB 1000 MG PO ×3 (08:02→20:01)
[2019-05-21] MEDS: Baclofen 10 MG TAB PO ×2 (08:02→20:01)
--- NOTE | 2019-05-21 08:18 | INITIAL_ITS ---
- If Service Date Differs Date of service: 05/21/19 Time of Service: 08:18 Care Management Initial Assess REASON FOR HOSPITALIZATION:: COPD PAST MEDICAL HISTORY/PAST SURGICAL HISTORY:: Medical History : Chronic low back pain. COPD (chronic obstructive pulmonary disease). Essential hypertension. GERD (gastroesophageal reflux disease). MEGAN on CPAP PREVIOUS FUNCTIONAL STATUS/SOCIAL/FAMILY SUPPORTS:: Simone lives with his girlfrien jelani of 8 years,Josie, in a single family home in [place], [place]. 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 Simone uses oxygen at home but is not clear about how many liters he is currently on. He is indeoendent with most activities and ADLs. CURRENT FUNCTIONAL STATUS:: Simone was siting up in bed when CM came to meet with him. He was pleasant and readily engaged in conversation, answering questions openly. He has recently completed a COLST form but identified to Dr. Beckham that he needs a blister packaging machine operator to prepare a will. CM was able to provide a list of [facility] law firms to evaluate for that purpose. ADVANCE DIRECTIVES:: None on file but has COLST Form Has patient been provided with information about the portal?: Yes Did the patient sign up for the portal?: No CODE STATUS:: DNR/DNI INSURANCE COVERAGE / FINANCIAL ISSUES:: Medicare. [place] CURRENT HOME/COMMUNITY SERVICES/EQUIPMENT:: Simone receives home oxygen from [facility] PRIMARY CARE PHYSICIAN:: Malka Sandhu POTENTIAL DISCHARGE NEEDS:: follow up with Oncology and PCP and discharge plan of care. PATIENT/FAMILY EDUCATION NEEDS:: Discharge plan, limitations, Follow up, Ask Me Three TRANSPORTATION:: via private vehicle with family when ready PLAN:: Simone will likely be discharged home with new services when ready. he will transport via private vehicle with family. CM will continue to provide support to patient, family and discharge planning needs.
[2019-05-21] MEDS: Albuterol/Ipratropium 3 ML UPD VIAL UPD ×3 (08:23→20:00)
[2019-05-21 09:00] LABS: Lactate 2.5 mmol/L (0.6-1.4)
--- NOTE | 2019-05-21 09:00 | MERGE_ITS ---
*[facility]* *[facility]* [address] [place] [address] Date of study: 05/21/2019 Transthoracic Echocardiography M-mode, complete 2D, complete spectral Doppler, and color Doppler *STUDY CONCLUSIONS* Summary: 1. Left ventricle: The cavity size was normal. Systolic function was normal. The estimated ejection fraction was 55-60%. Some parameters suggest diastolic dysfunction. There was no evidence of elevated ventricular filling pressure by Doppler parameters. 2. Ventricular septum: Septal motion showed abnormal function and paradoxical motion. The contour showed diastolic flattening and systolic flattening. The outflow septum had a sigmoid appearance. These changes are consistent with RV volume and RV pressure overload. 3. Mitral valve: There was mild regurgitation. 4. Left atrium: The atrium was moderately dilated. 5. Right ventricle: The cavity size was severely dilated. Systolic function was severely reduced. 6. Right atrium: The atrium was severely dilated. 7. Tricuspid valve: There was moderate-severe regurgitation directed eccentrically. 8. Pulmonary arteries: Pulmonary systolic pressure was in the range of 60mm Hg to 70mm Hg. 9. Inferior vena cava: The vessel was patent and dilated with some respirophasic diameter changes . RAP est 5-10 mmHg.. *PATIENT PRESENTATION* Height: 185.4cm (73in ) S/D Pressure: 126 / 89 Weight: 85.7kg (188.6lb ) BSA: 2.11m^2 Test start time: 09:15 AM. Test stop time: 10:15 AM. PERFORMING Unknown CONSULTING Umair Dyer ORDERING Umair Dyer REFERRING Umair Dyer PERFORMING [facility] BUSHWALKING GUIDE Lilly Hoppe, RT Kenny)(CT), RDCS *PROCEDURE DATA* Procedure information: The patient was identified by two identifiers. This study was interpreted by [facility]. Pertinent images and digital data are archived for permanent storage and are available for subsequent review. Comparison was made to the study of 09/06/2016. Study status: Routine. Transthoracic echocardiography. M-mode, complete 2D, complete spectral Doppler, and color Doppler. A Transthoracic Echocardiogram was performed. Scanning was performed from the parasternal, apical, subcostal, and suprasternal notch acoustic windows. Images were obtained using an [id number] cardiac ultrasound machine. Image quality was good. Study completion: The patient tolerated the procedure well. History: PMH: NSTEMI hx CAD. *CARDIAC ANATOMY* Left ventricle: The cavity size was normal. Systolic function was normal. The estimated ejection fraction was 55-60%. The tissue Doppler parameters were abnormal. Some parameters suggest diastolic dysfunction. There was no evidence of elevated ventricular filling pressure by Doppler parameters. Aortic valve: Calcium associated with right coronary cusp. Trileaflet. Doppler: There was no stenosis. There was no regurgitation. VTI ratio of LVOT to aortic valve: 1.13. Valve area (VTI): 4.7cm^2. Indexed valve area (VTI): 2.2cm^2/m^2. Peak velocity ratio of LVOT to aortic valve: 0.82. Valve area (Vmax): 3.4cm^2. Indexed valve area (Vmax): 1.6cm^2/m^2. Mean velocity ratio of LVOT to aortic valve: 0.88. Valve area (Vmean): 3.6cm^2. Indexed valve area (Vmean): 1.7cm^2/m^2. Mean gradient (S): 2.6mm Hg. Peak gradient (S): 5.2mm Hg. Aorta: Aortic root: The aortic root was at upper normal limits. Mitral valve: Doppler: There was no evidence for stenosis. There was mild regurgitation. Left atrium: The atrium was moderately dilated. Atrial septum: Poorly visualized. Right ventricle: The cavity size was severely dilated. Systolic function was severely reduced. Ventricular septum: Septal motion showed abnormal function and paradoxical motion. The contour showed diastolic flattening and systolic flattening. The outflow septum had a sigmoid appearance. These changes are consistent with RV volume and RV pressure overload. Pulmonic valve: Doppler: There was no evidence for stenosis. There was no significant regurgitation. Peak gradient (S): 3.5mm Hg. Tricuspid valve: Doppler: There was moderate-severe regurgitation directed eccentrically. Pulmonary artery: Poorly visualized. Pulmonary systolic pressure was in the range of 60mm Hg to 70mm Hg. Right atrium: The atrium was severely dilated. Pericardium: There was no pericardial effusion. Systemic veins: Inferior vena cava: Well visualized. The vessel was patent and dilated with some respirophasic diameter changes . RAP est 5-10 mmHg.. Baseline ECG: Normal sinus rhythm. Measurements Left ventricle Value 09/06/2016 Reference LV ID, ED, PLAX 4.3 cm 4.8 3.5 - 6.0 LV ID, ES, PLAX 3.1 cm 3.1 2.1 - 4.0 LV PW thickness, ED, PLAX 1.2 cm 1.4 LV end-diastolic volume, 77 ml 1-p A2C LV ejection fraction, 1-p 61 % 61 A2C LV end-diastolic volume, 73 ml 1-p A4C LV ejection fraction, 1-p 52 % 62 A4C LV e', lateral 0.066 m/sec LV E/e', lateral 5 LV e', medial 0.068 m/sec LV E/e', medial 4 LV e', average 0.067 m/sec LV E/e', average 5 Ventricular septum Value 09/06/2016 Reference IVS thickness, ED, PLAX 1.7 cm 1.2 LVOT Value 09/06/2016 Reference LVOT ID, A-P 2.3 cm 2.3 LVOT area 4.1 cm^2 4.1 LVOT peak velocity, S 0.93 m/sec 0.91 LVOT mean velocity, S 0.68 m/sec LVOT VTI, S 18.1 cm 21.4 LVOT peak gradient, S 3.5 mm Hg LVOT mean gradient, S 2.1 mm Hg 1.5 Stroke volume (SV), LVOT 74 ml DP Stroke index (SV/bsa), 35 ml/m^2 LVOT DP Aortic valve Value 09/06/2016 Reference Aortic valve peak 1.1 m/sec velocity, S Aortic valve mean 0.8 m/sec velocity, S Aortic valve VTI, S 16.0 cm Aortic mean gradient, S 2.6 mm Hg Aortic peak gradient, S 5.2 mm Hg VTI ratio, LVOT/AV 1.13 Aortic valve area, VTI 4.7 cm^2 Velocity ratio, peak, 0.82 LVOT/AV Aortic valve area, peak 3.4 cm^2 velocity Velocity ratio, mean, 0.88 LVOT/AV Aortic valve area, mean 3.6 cm^2 velocity Aortic valve area/bsa, 1.7 cm^2/m^2 mean velocity Aorta Value 09/06/2016 Reference Aortic root ID, ED 4.0 cm 4.2 Left atrium Value 09/06/2016 Reference LA ID, A-P, ES 3.6 cm LA ID/bsa, A-P 1.7 cm/m^2 <=2.2 LA volume/bsa, ES, 1-p A4C 50 ml/m^2 46 LA volume, ES, 2-p 67 ml LA volume/bsa, ES, 2-p 32 ml/m^2 LA/aortic root ratio 0.89 1.01 Mitral valve Value 09/06/2016 Reference Mitral E-wave peak 0.31 m/sec 0.47 velocity Mitral A-wave peak 0.93 m/sec 0.66 velocity Mitral E/A ratio, peak 0.33 0.71 Tricuspid valve Value 09/06/2016 Reference Tricuspid regurg peak 3.8 m/sec 3.1 velocity Tricuspid peak RV-RA 57.2 mm Hg 39.6 gradient Right atrium Value 09/06/2016 Reference RA area, ES, A4C (H) 30 cm^2 17 8.3 - 19.5 Pulmonic valve Value 09/06/2016 Reference Pulmonic peak gradient, S 3.5 mm Hg Legend: (L) and (H) christine values outside specified reference range. I have personally reviewed the images and have reviewed and edited the reported findings. Electronically signed by Quique Hawk MD 05/21/2019 11:28
[2019-05-21 09:17] LABS: PTT Activated 26.3 sec (21.0-31.4)
[2019-05-21] MEDS: Normal Saline Flush 10 ML SYR IVP ×3 (09:40→15:25)
[2019-05-21 11:32] LABS: Troponin I 1.48 ng/mL (0.00-0.06)
--- NOTE | 2019-05-21 11:41 | PGE_ITS ---
Date of Service Date of service: 05/21/19 Time of Service: 11:41 Assessment and Plan (1) COPD (chronic obstructive pulmonary disease): Current visit: Yes Status: Chronic Initial wheezing has dissipated, with good airflow. No evidence of infiltrates or PE by CT Scan. - Continue high dose IV Steroids, and given change in cough and sputum would benefit from Abx - CTx day #2. - Continue standing duonebs, and continue nebulized budesonide, and frequent prn Levalbuterol. Low dose Morphine if needed. - Highly recommended BiPAP therapy for ease of breathing but refused by patient. - Palliative care consulted and following. Overall appears improved. (2) NSTEMI (non-ST elevated myocardial infarction): Current visit: Yes Status: Acute Demand related ischemia in the setting of hypoxia that appears chronic and acutely worsened - ECG unchanged, and troponins have downtrended. - Continue ASA, high potency statin. Continue NTG prn. - Continue to trend troponin - patient does have underlying CAD, s/p Stend in 2016 to the LAD - appears asymptomatic. - Initiate Heparin gtt X48 hours. - No evidence of wma's or depressed LVEF by current ECHO. - Will consider stress testing once acute illness is better controlled. - Discussed case with [facility] cardiology - medical management as above was the agreed upon course of action, with possible stress in the near future. (3) Cor pulmonale: Current visit: Yes Status: Acute PHTN with PAP in the 60-70's range, with resultant evidence of RV dilation and impaired function. Continue treatment of underlying lung disease, and monitor fluid status. (4) Right-sided congestive heart failure: Current visit: Yes Status: Acute Noted. Monitor volume status. (5) Squamous cell lung cancer: Current visit: No Status: Acute Currently following with Oncology at [facility] - receiving Chemo and XRT. (6) High anion gap metabolic acidosis: Current visit: Yes Status: Acute Evidence of a compensated, anion gap metabolic acidosis with a Respiratory Alkalosis - unknown etiology. - Given significant initial Hypoxia question potential hypoperfusion - Lactic Acid checked and elevated. Also with hx CAD - ECG reviewed and non-ischemic, but with elevated trops as above. - Mild ketones in urine, but no history of DM - highly doubt DKA. Also denies any EtOH - also doubt AKA. Also denies ingestion (is on daily aspirin, but once a day low dose only). - No evidence of DAISY or uremia. Monitor closely, especially given respiratory status, for worsening tachypnea. Repeat ABG ordered but not performed. Anion Gap appears closed this morning. (7) DVT prophylaxis: Current visit: Yes Status: Acute SC Lovenox. Ensure PPI for GI protection as well. (8) Advance directive discussed with patient: Current visit: Yes Status: Acute DNR/DNI Following lengthy conversation at time of admission. Subjective Interval history since last seen: 68 year old man with a prior history of COPD and Lung Ca, admitted from [facility] Emergency Department on 05/20 with a diagnosis of Acute COPD Exacerbation. Mr. Ambrose has a Past Medical History significant for likely end-stage COPD on Home O2, and RUL NSCLCa diagnosed in January of 2019. 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 His other history includes A1 Antitrypsin Deficiciency (Heterozygous), CAD s/p BASILIO to LAD in 2015, Polyclonal Gammopathy, Bladder Ca s/p BCG injections in 2012, HTN, Cancer related pain on chronic opiate therapy, and GERD. He also reports a 100+ pack year history of tobacco use, started at approximately 9 years of age. The patient was reportedly experiencing worsening dyspnea over the course of 3 days, acutely deteriorating on the morning of admission. He was transported to the ED via EMS. His work-up was pertinent for a low bicarb and elevated anion gap, Elevated BNP, and normal urinalysis. ABG was requested and showed a normal PH, with significant hypoxia, and a low PCO2. CT of the chest showed a lack of Pulmonary Emboli, decrease in the size of the RUL mass, and pathologic fracture of the sternum. He was noted to have significant wheezing, and was administered IV Steroids and High Flow Oxygen. His repeat ABG showed improvement in oxygen levels, with continuously low pCO2 and normal PH. He was referred for admission for further evaluation and treatment. Overnight Mr. Ambrose's troponin elevated, with repeat EKG essentially unchanged and not acutely ischemic. This morning he appears improved overall, with downtrending troponin and a normalized anion gap. His oxygenation is improved as well. ECHO was ordered and showed a preserved LVEF, but with systolic dysfunction and dilation of the RV, PHTN, and borderline severe TR. The patient himself feels better. Remains afebrile. Exam Narrative Exam Narrative: General: Patient appears less ill but still chronically ill, AAOX3, NAD Neck: Supple CV: Regular, borderline tachycardic, S1S2, No rubs, murmurs, or gallops. Pulmonary: Clear to auscultation bilaterally, no crackles, wheezing, or rhonchi Abdomen: + Bowel Sounds, soft, nontender, nondistended Vascular: No lower extremity edema Psych: Normal mood and affect. Objective Objective Clinical Data: Abnormal lab results 05/20/19 05/20/19 05/20/19 Range/Units 11:52 13:03 14:19 WBC (4.4-10.8) k/cumm RBC (4.50-6.00) m/cumm Hgb (13.5-17.5) g/dL Hct (40.0-50.0) % Absolute Neutrophils (1.2-6.7) k/cumm Absolute Lymphocytes (1.2-3.4) k/cumm Absolute Monocytes (0.11-0.7) k/cumm pCO2 28 L 26 L (34-47) mmHg pO2 37 L* 65 L (83-108) mmHg O2 Saturation 68 L 93 L (94-98) % ABG HCO3 17 L 17 L (22-28) mmol/L ABG Total CO2 16 L 16 L (22-29) mmol/L ABG Base Excess -8.2 L -9.0 L (-3-3) mmol/L Chloride (98-107) mmol/L BUN (7-18) mg/dL Glucose (70-100) mg/dL Lactate (0.6-1.4) mmol/L Calcium (8.5-10.1) mg/dL Troponin I (0.00-0.06) ng/mL Urine Protein Trace H (Negative) mg/dL Urine Ketones 15 H (Negative) mg/dL Urine Urobilinogen 1.0 H (Up TO 0.2) EU/dL 05/20/19 05/20/19 05/21/19 Range/Units 22:33 22:33 06:15 WBC (4.4-10.8) k/cumm RBC (4.50-6.00) m/cumm Hgb (13.5-17.5) g/dL Hct (40.0-50.0) % Absolute Neutrophils (1.2-6.7) k/cumm Absolute Lymphocytes (1.2-3.4) k/cumm Absolute Monocytes (0.11-0.7) k/cumm pCO2 (34-47) mmHg pO2 (83-108) mmHg O2 Saturation (94-98) % ABG HCO3 (22-28) mmol/L ABG Total CO2 (22-29) mmol/L ABG Base Excess (-3-3) mmol/L Chloride 111 H (98-107) mmol/L BUN 34 H (7-18) mg/dL Glucose 143 H (70-100) mg/dL Lactate 1.9 H (0.6-1.4) mmol/L Calcium 8.2 L (8.5-10.1) mg/dL Troponin I 2.13 H* 1.99 H* (0.00-0.06) ng/mL Urine Protein (Negative) mg/dL Urine Ketones (Negative) mg/dL Urine Urobilinogen (Up TO 0.2) EU/dL 05/21/19 05/21/19 05/21/19 Range/Units 06:15 08:46 11:00 WBC 11.87 H (4.4-10.8) k/cumm RBC 3.26 L (4.50-6.00) m/cumm Hgb 9.5 L (13.5-17.5) g/dL Hct 29.7 L (40.0-50.0) % Absolute Neutrophils 10.65 H (1.2-6.7) k/cumm Absolute Lymphocytes 0.40 L (1.2-3.4) k/cumm Absolute Monocytes 0.76 H (0.11-0.7) k/cumm pCO2 (34-47) mmHg pO2 (83-108) mmHg O2 Saturation (94-98) % ABG HCO3 (22-28) mmol/L ABG Total CO2 (22-29) mmol/L ABG Base Excess (-3-3) mmol/L Chloride (98-107) mmol/L BUN (7-18) mg/dL Glucose (70-100) mg/dL Lactate 2.5 H* (0.6-1.4) mmol/L Calcium (8.5-10.1) mg/dL Troponin I 1.48 H* (0.00-0.06) ng/mL Urine Protein (Negative) mg/dL Urine Ketones (Negative) mg/dL Urine Urobilinogen (Up TO 0.2) EU/dL Vital Signs Temperature 36.8 C 05/21/19 07:45 Temperature Source Temporal Artery Scan 05/21/19 07:45 Pulse 98 H 05/21/19 10:28 Pulse 99 H 05/21/19 10:28 Respiratory Rate 17 05/21/19 08:23 Respiratory Effort 05/21/19 07:45 Respiratory Depth Normal 05/21/19 07:45 Respiratory Pattern Tachypnea 05/21/19 07:45 Blood Pressure 118/83 05/21/19 10:28 Blood Pressure Mean 91 05/21/19 10:28 Blood Pressure Position Supine 05/21/19 07:45 Pulse Oximetry 80 L 05/21/19 10:28 Oxygen Delivery Method Hi Flow System 05/21/19 08:23 Oxygen Flow Rate 35 05/21/19 08:59 Fraction of Inspired Oxygen (FIO2) 51 05/21/19 08:59 Pain Level 0 05/21/19 07:45 Intake & Output 05/20/19 05/20/19 05/21/19 11:59 23:59 11:59 Intake Total 1999 175 / 5 480 / 480 Output Total 350 / 350 320 / 320 Balance 1999 -1824 160 / 160 Weight 82.9 kg 82.9 kg 83.2 kg Intake: IV 1999 Oral 125 / 125 480 / 480 Output: Urine 350 / 350 320 / 320 Other: Urine Color Dark Sena Brown Urine Appearance Clear Clear Urine Odor None None Comment states he is getting over a UTI in which he had trouble voiding and burning. this is mostly but not completely resolved. Pt hasused urinal to void 200cc's of dark sena urine pt putting out very minimal urine for knitter wire mesh. dark brown. Voiding Methods Urinal Laboratory Results WBC 11.87 k/cumm (4.4-10.8) H 05/21/19 06:15 RBC 3.26 m/cumm (4.50-6.00) L 05/21/19 06:15 Hgb 9.5 g/dL (13.5-17.5) L 05/21/19 06:15 Hct 29.7 % (40.0-50.0) L 05/21/19 06:15 MCV 91.1 fL (80-95) 05/21/19 06:15 MCH 29.1 pg (27.0-33.0) 05/21/19 06:15 MCHC 32.0 g/dL (32.0-36.0) 05/21/19 06:15 RDW % (11.8-14.1) 05/21/19 06:15 Plt Count 211 x1000/uL (130-400) 05/21/19 06:15 MPV 10.6 fL (8.0-11.0) 05/21/19 06:15 Immature Gran % 0.4 05/21/19 06:15 89.7 05/21/19 06:15 9.0 % 05/20/19 10:12 3.4 05/21/19 06:15 6.4 05/21/19 06:15 0.0 05/21/19 06:15 0.1 05/21/19 06:15 Absolute Neutrophils 10.65 k/cumm (1.2-6.7) H 05/21/19 06:15 Absolute Lymphocytes 0.40 k/cumm (1.2-3.4) L 05/21/19 06:15 Absolute Monocytes 0.76 k/cumm (0.11-0.7) H 05/21/19 06:15 Absolute Eosinophils 0.00 k/cumm (0.0-0.7) 05/21/19 06:15 Absolute Basophils 0.01 k/cumm (0.0-0.2) 05/21/19 06:15 Rbc morph reviewed 05/21/19 06:15 RBC Morphology See below 05/21/19 06:15 Present 05/21/19 06:15 2+ 05/21/19 06:15 3+ 05/21/19 06:15 2+ 05/21/19 06:15 1+ 05/21/19 06:15 PT 11.6 sec (9.3-11.0) H 05/20/19 10:12 INR 1.2 (0.9-1.1) H 05/20/19 10:12 APTT 26.3 sec (21.0-31.4) 05/21/19 08:46 Sample Site Right radial 05/20/19 13:03 pCO2 26 mmHg (34-47) L 05/20/19 13:03 pO2 65 mmHg (83-108) L 05/20/19 13:03 O2 Saturation 93 % (94-98) L 05/20/19 13:03 ABG pH 7.40 (7.35-7.45) 05/20/19 13:03 ABG HCO3 17 mmol/L (22-28) L 05/20/19 13:03 ABG Total CO2 16 mmol/L (22-29) L 05/20/19 13:03 ABG Base Excess -9.0 mmol/L (-3-3) L 05/20/19 13:03 Oxygen Liter Flow 3 L 05/20/19 11:52 59 % 05/20/19 13:03 Sodium 143 mmol/L (136-145) 05/21/19 06:15 Potassium 3.8 mmol/L (3.5-5.1) 05/21/19 06:15 Chloride 111 mmol/L (98-107) H 05/21/19 06:15 Carbon Dioxide 21.4 mmol/L (21.0-32.0) 05/21/19 06:15 10.6 mmol/L (3-11) 05/21/19 06:15 BUN 34 mg/dL (7-18) H 05/21/19 06:15 0.92 mg/dL (0.70-1.30) 05/21/19 06:15 >= 60.00 (mL/min/1.73m2) 05/21/19 06:15 Glucose 143 mg/dL (70-100) H 05/21/19 06:15 2.5 mmol/L (0.6-1.4) H* 05/21/19 08:46 Calcium 8.2 mg/dL (8.5-10.1) L 05/21/19 06:15 Magnesium 2.1 mg/dL (1.8-2.4) 05/21/19 06:15 0.9 mg/dL (0.2-1.0) 05/20/19 10:12 AST 32 U/L (15-37) 05/20/19 10:12 ALT 35 U/L (16-63) 05/20/19 10:12 103 U/L (46-116) 05/20/19 10:12 1.48 ng/mL (0.00-0.06) H* 05/21/19 11:00 NT-Pro-B Natriuret Pep 8781 pg/mL (-299) H 05/20/19 10:12 6.6 g/dL (6.4-8.2) 05/20/19 10:12 2.9 g/dL (3.4-5.0) L 05/20/19 10:12 Sena (Yellow) 05/20/19 14:19 Clear (Clear) 05/20/19 14:19 5.5 (5-8) 05/20/19 14:19 Ur Specific [place] 1.015 (1.005-1.025) 05/20/19 14:19 Trace mg/dL (Negative) H 05/20/19 14:19 15 mg/dL (Negative) H 05/20/19 14:19 Negative (Negative) 05/20/19 14:19 Negative (Negative) 05/20/19 14:19 Negative (Negative) 05/20/19 14:19 1.0 EU/dL (Up TO 0.2) H 05/20/19 14:19 Ur Leukocyte Esterase Negative (Negative) 05/20/19 14:19 Negative (0-2) 05/20/19 14:19 0-2 HPF (0-5) 05/20/19 14:19 Ur Epithelial Cells Rare HPF (Negative) 05/20/19 14:19 Negative HPF (Negative) 05/20/19 14:19 Rare HPF (Negative) 05/20/19 14:19 Comment LPF (Negative) 05/20/19 14:19 Moderate (Negative) 05/20/19 14:19 Ur Culture Indicated? No 05/20/19 14:19 Negative mg/dL (Negative) 05/20/19 14:19
[2019-05-21] MEDS: Normal Saline 1,000 ML 75 ML IV (12:19)
--- NOTE | 2019-05-21 14:18 | PHARADMIT ---
Addendum entered by Dayanna Mario 05/25/19 13:08: BP's running on high side 161/107, then 154/91, afebrile, tapering oxygen down, no labs today IV to oral steroids with slow taper Ceftriaxone dose #5 today, MD plans to d/c Anticipated discharge Sunday Addendum entered by Dayanna Mario 05/24/19 12:31: Pharmacy Note Subjective Transferred to M/S, remains on Tele, hypoxic, on continuous oxygen Objective VS ok, Oxygen reduced, lytes ok Assessment Decreased SoluMedrol IV Ranitidine in place of PPI (ADR to Omeprazole) Toda7 will be day#5 Ceftriaxone for COPD Plan IV to oral steroids, wants to go home w/services-possibly Sunday Addendum entered by Rhea Owens 05/23/19 14:10: Pharmacy Note Subjective MD states Mr. Ambrose is doing much better today and will transition to MS soon Objective BP 157/81, HR 87, Scr 0.94, WBC 12.77 (steroids), troponin still trending down (0.59) Assessment Likely end stage COPD; NSTEMI - demand related ischemia in setting of hypoxia Plan Wean steroids today and continue nebs, continye ABX day #4; Discontinue heparin drip - restarted lovenox - stress test in future, no BB due to severity of COPD Addendum entered by Harjeet Singleton III 05/22/19 11:57: Pharmacy Note Subjective MD notes it will be a long, slow process for patient to return to baseline. Cough continues as does Rocephin (day#3). Requires high flow Oxygen. Patient has experienced a NSTEMI, and underlying CAD, Squamous cell lung cancer (See [facility] oncology) Had Palliative care consult (now DNI/DNR) Objective BP-171/94 HR-121 SCr-0.89 (down) Troponin down, WBC-up (steroids), Had BM today. Assessment Heparin drip to continue into tomorrow,. Steroid tape (slow) started Plan Continue current therapies. Stress test recommended in future. Addendum entered by Harjeet Singleton III 05/21/19 14:49: addendum: Lovenox dc'd after speaking with provider, also on Heparin drip Original Note: Admission Pharmacy Clinical Review COPD EXACERBATION (near end stage) Code Status DNR/DNI Current Weight Wgt-83.2 kg Renally Cleared and Narrow Therapeutic Index Meds CrCl~89 mL/min Meds-OK QTc Value / Action Taken QTc-493 Zoloft, Trazodone-home meds BP Control, Fever BP-118/83 Tmax-37.2C Electrolytes reviewed Na- 143 K+3.8 Mag-2.1 DVT Prophylaxis Lovenox, ASA-EC, Heparin Drip Opiate Usage / Scheduled Bowel Regimen Ordered Yes Yes Plt/SCr for Heparin / Enoxaparin Plts- 211 SCr-0.92 INR for Warfarin inr-1.2 H/H stable, WBC/Bands H&H- 9.5/29.7 WBC- 11.87 Antibiotic appropriateness Rocephin, Cultures and Sensitivities none Surgical ABX d/c within 24 hr na DM control / Insulin Dosing BG-143 Heart Failure (Check EF%) ([facility], B-Block, Diuretics) NTG, IV to PO Switch No Home Meds Reviewed Yes Home Meds Not Ordered Cipro, Decadron, Lisinopril, Comments
[2019-05-21] MEDS: cefTRIAXone 2 GM/50 ML BAG IVPB (14:29)
[2019-05-21] MEDS: LORazepam 1 MG TAB PO ×2 (14:32→20:17)
[2019-05-21 15:44] LABS: Lactate 1.8 mmol/L (0.6-1.4)
--- NOTE | 2019-05-21 15:53 | CHAPLAIN ---
There were five or six people visited Simone when I stopped by his room. He was pleasant and when I introduced myself, said he didn't think he needed a workforce planner as he wasn't dying. 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
[2019-05-21 16:07] LABS: PTT Activated 29.2 sec (21.0-31.4)
[2019-05-21] MEDS: Atorvastatin 40 MG TAB 80 MG PO (20:01)
[2019-05-21] MEDS: traZODone 100 MG TAB PO (20:17)
--- NOTE | 2019-05-21 20:32 | PCNE_ITS ---
Date of service: 05/21/19 Time of Service: 14:32 History of Present Illness Narrative: Jose is a 68-year-old man with known squamous cell lung cancer. He has a pathologic fracture through his sternum and right upper lobe mass. He is gone through chemotherapy and radiation with reduction in size of the mass. He has had recent hypoxia coming to the hospital and was placed on high flow oxygen. He is feeling considerably better today than he was yesterday. Of note overnight he did have an NSTEMI. Despite this he is feeling better, sitting up in a chair, entertaining his guests in the room. He is feeling more like himself, and per his significant other bit more ornery Assessment and Plan (1) Cor pulmonale: Current visit: Yes Status: Acute (2) NSTEMI (non-ST elevated myocardial infarction): Current visit: Yes Status: Acute (3) Squamous cell lung cancer: Current visit: No Status: Acute Overall I am very happy with Jose's improvement from yesterday. NSTEMI?stable. No current chest pain Hypoxia definitely improved with the high flow oxygen. He is so much more like himself than what he was yesterday. It will be interesting to see how he does over the next few days regarding his hypoxia CODE STATUS DNR/DNI It is very important for him to get his Will done. He does have a POA, but does not have his will done to delineate where his money and possessions should go. I have spoken with care management and [place] is working on getting him a list of people that he can go to. This document was created by [employer] voice recognition and may contain grammatical and translation errors. I have spent more than 50% of time in counseling with this patient. Review of Systems Review of Systems He states he is feeling better. He has increased comfortable with breathing. His pain is well controlled. FOR[facility]LY [facility] Medical History Chronic low back pain COPD (chronic obstructive pulmonary disease) Essential hypertension GERD (gastroesophageal reflux disease) MEGAN on CPAP Family History Daughter No problems noted. Son No problems noted. Mother Aneurysm Father Aortic aneurysm Social History Smoking/Tobacco Use Status: Former Tobacco Use Quit Date: 09/17/17 Drug use: Never Household members: significant other Housing: house Pets and animals: Yes (Baljinder) Pets and animals: cat(s) Do you feel safe in your relationship?: Yes Exam Narrative Exam Narrative: He is sitting in a chair. He is entertaining his guests. He looks engaged and vibrant. He is speaking in complete sentences. Eyes General: appearance normal, both eyes and all related structures Resp Effort & Inspection: able to speak in complete sentences Auscultation: abnormal I/E ratio and diminished lung sounds Cardio Rate: regular rate Psych Appearance: grossly normal Mental Status: mental status grossly normal Speech and Movement: speech clear Mood: congruent mood Affect: normal affect Attitude: cooperative Thought Process: normal Other: atient Name: JOSE BISHOP #: [id number]: ICU Ordering Provider: Umair Dyer M.D. : ADM IN Primary Care Provider: Malka Sandhu M.D.Date of Exam: 05/21/19Sex: M : 3Age: 68 Exam(s) a US:US echocardiogram *[facility]* *[facility]* [address] [place] [address] Date of study: 05/21/2019 Transthoracic Echocardiography M-mode, complete 2D, complete spectral Doppler, and color Doppler *STUDY CONCLUSIONS* Summary: 1. Left ventricle: The cavity size was normal. Systolic function was normal. The estimated ejection fraction was 55-60%. Some parameters suggest diastolic dysfunction. There was no evidence of elevated ventricular filling pressure by Doppler parameters. 2. Ventricular septum: Septal motion showed abnormal function and paradoxical motion. The contour showed diastolic flattening and systolic flattening. The outflow septum had a sigmoid appearance. These changes are consistent with RV volume and RV pressure overload. 3. Mitral valve: There was mild regurgitation. 4. Left atrium: The atrium was moderately dilated. 5. Right ventricle: The cavity size was severely dilated. Systolic function was severely reduced. 6. Right atrium: The atrium was severely dilated. 7. Tricuspid valve: There was moderate-severe regurgitation directed eccentrically. 8. Pulmonary arteries: Pulmonary systolic pressure was in the range of 60mm Hg to 70mm Hg. 9. Inferior vena cava: The vessel was patent and dilated with some respirophasic diameter changes . RAP est 5-10 mmHg.. Results Last Vital Signs Temp 98.2 F 05/21/19 14:08 Pulse 98 H 05/21/19 10:28 Resp 17 05/21/19 08:23 BP 118/83 05/21/19 10:28 Pulse Ox 80 L 05/21/19 10:28 Labs : 05/21/19 06:15 05/21/19 06:15 Laboratory Results - last 24 hr 05/20/19 05/20/19 05/21/19 22:33 22:33 06:15 WBC RBC Hgb Hct MCV MCH MCHC RDW Plt Count MPV Immature Gran % Neutrophils % Lymphocytes % Monocytes % Eosinophils % Basophils % Absolute Neutrophils Absolute Lymphocytes Absolute Monocytes Absolute Eosinophils Absolute Basophils Differential Comment RBC Morphology Polychromasia Poikilocytosis Anisocytosis Microcytosis Macrocytosis APTT Sodium 143 Potassium 3.8 Chloride 111 H Carbon Dioxide 21.4 Anion Gap 10.6 BUN 34 H Creatinine 0.92 Estimated GFR/1.73 m2 >= 60.00 Glucose 143 H Lactate 1.9 H Calcium 8.2 L Magnesium 2.1 Troponin I 2.13 H* 1.99 H* 05/21/19 05/21/19 05/21/19 06:15 06:30 08:46 WBC 11.87 H RBC 3.26 L Hgb 9.5 L Hct 29.7 L MCV 91.1 MCH 29.1 MCHC 32.0 RDW Plt Count 211 MPV 10.6 Immature Gran % 0.4 Neutrophils % 89.7 Lymphocytes % 3.4 Monocytes % 6.4 Eosinophils % 0.0 Basophils % 0.1 Absolute Neutrophils 10.65 H Absolute Lymphocytes 0.40 L Absolute Monocytes 0.76 H Absolute Eosinophils 0.00 Absolute Basophils 0.01 Differential Comment Rbc morph reviewed RBC Morphology See below Polychromasia Present Poikilocytosis 2+ Anisocytosis 3+ Microcytosis 2+ Macrocytosis 1+ APTT Sodium Potassium Chloride Carbon Dioxide Anion Gap BUN Creatinine Estimated GFR/1.73 m2 Glucose Lactate 2.5 H* Calcium Magnesium Troponin I Cancelled 05/21/19 05/21/19 05/21/19 08:46 11:00 15:35 WBC RBC Hgb Hct MCV MCH MCHC RDW Plt Count MPV Immature Gran % Neutrophils % Lymphocytes % Monocytes % Eosinophils % Basophils % Absolute Neutrophils Absolute Lymphocytes Absolute Monocytes Absolute Eosinophils Absolute Basophils Differential Comment RBC Morphology Polychromasia Poikilocytosis Anisocytosis Microcytosis Macrocytosis APTT 26.3 29.2 Sodium Potassium Chloride Carbon Dioxide Anion Gap BUN Creatinine Estimated GFR/1.73 m2 Glucose Lactate Calcium Magnesium Troponin I 1.48 H* 05/21/19 15:35 WBC RBC Hgb Hct MCV MCH MCHC RDW Plt Count MPV Immature Gran % Neutrophils % Lymphocytes % Monocytes % Eosinophils % Basophils % Absolute Neutrophils Absolute Lymphocytes Absolute Monocytes Absolute Eosinophils Absolute Basophils Differential Comment RBC Morphology Polychromasia Poikilocytosis Anisocytosis Microcytosis Macrocytosis APTT Sodium Potassium Chloride Carbon Dioxide Anion Gap BUN Creatinine Estimated GFR/1.73 m2 Glucose Lactate 1.8 H Calcium Magnesium Troponin I
[2019-05-22] VITALS (44 sets, daily range): BP systolic 137–171; BP diastolic 82–107; PULSE 77–121; RESP 1–22; TEMP 34–36.8; O2SAT 74–99
[2019-05-22] MEDS: Normal Saline 1,000 ML 75 ML IV (02:45)
[2019-05-22] MEDS: methylPREDNISolone SUCC 125 MG VIAL 60 MG IVP ×2 (04:30→09:25)
--- NOTE | 2019-05-22 04:45 | NUR.NOTE ---
PTT result faxed during downtime reads 30.0sec. Result entered in [employer] is 38.0sec. RN called lab with discrepancy. Per labor relations officer, result is 38.0sec and original used for fax also says 38.0sec. Heparin protocol instructions are the same for both results. Will continue to monitor closely.
[2019-05-22 05:58] LABS: Lactate 1.7 mmol/L (0.6-1.4)
[2019-05-22 06:00] LABS: Abs Immature Grans 0.06 k/cumm (0.0-0.09); Absolute Neutrophil Count 12.63 k/cumm (1.2-6.7); HCT 31.2 % (40.0-50.0); HGB 10.1 g/dL (13.5-17.5); Immature Grans % 0.4; Lymphocytes % 2.2; Mean Corp. HGB Concentration 32.4 g/dL (32.0-36.0); Mean Corpuscular Hemoglobin 30.1 pg (27.0-33.0); Mean Corpuscular Volume 93.1 fL (80-95); Mean Platelet Volume 10.4 fL (8.0-11.0); Monocytes % 4.1; Neutrophils % 93.3; Platelet Count 207 x1000/uL (130-400); RBC 3.35 m/cumm (4.50-6.00); White Blood Cell Count 13.54 k/cumm (4.4-10.8)
[2019-05-22 06:11] LABS: Absolute Monocyte Count 0.56 k/cumm (0.11-0.7)
[2019-05-22 06:13] LABS: Anisocytosis 2+; Diff Comment RBC Morph Reviewed; Macrocytosis 1+; Microcytosis 1+; PTT Activated 42.2 sec (21.0-31.4); Spherocytes 1+
[2019-05-22 06:14] LABS: Poikilocytes 2+
[2019-05-22 06:48] LABS: Anion Gap 12.4 mmol/L (3-11); BUN 21 mg/dL (7-18); CO2 21.6 mmol/L (21.0-32.0); CREATININE 0.89 mg/dL (0.70-1.30); Calcium 8.2 mg/dL (8.5-10.1); Chloride 110 mmol/L (98-107); Glucose 144 mg/dL (70-100); Magnesium 2.1 mg/dL (1.8-2.4); Potassium 4.3 mmol/L (3.5-5.1); Sodium 144 mmol/L (136-145)
[2019-05-22] MEDS: Albuterol/Ipratropium 3 ML UPD VIAL UPD ×3 (07:27→21:01)
[2019-05-22] MEDS: Budesonide 0.5 MG/2 ML UPD VIAL UPD ×2 (07:32→18:18)
[2019-05-22] MEDS: Normal Saline Flush 10 ML SYR IVP ×3 (09:24→21:01)
[2019-05-22] MEDS: Gabapentin 300 MG CAP 900 MG PO ×2 (09:25→21:03)
[2019-05-22] MEDS: Acetaminophen 500 MG TAB 1000 MG PO ×3 (09:25→21:02)
[2019-05-22] MEDS: Sertraline 50 MG TAB 200 MG PO (09:25)
[2019-05-22] MEDS: Aspirin E.C. 81 MG TABEC PO (09:26)
[2019-05-22] MEDS: Baclofen 10 MG TAB PO ×2 (09:26→21:03)
--- NOTE | 2019-05-22 09:43 | W.PM.PROGNOT ---
Date of Service Date of service: 05/22/19 Time of Service: 09:44 Assessment and Plan (1) COPD (chronic obstructive pulmonary disease): Current visit: Yes Status: Chronic Initial wheezing has dissipated, with good airflow. No evidence of infiltrates or PE by CT Scan. - Continue IV Steroids with slight wean today, and given change in cough and sputum would benefit from Abx - CTx day #3. - Continue standing duonebs, and continue nebulized budesonide, and frequent prn Levalbuterol. Low dose Morphine if needed. - Highly recommended BiPAP therapy for ease of breathing but refused by patient. - Palliative care consulted and following. Overall appears improved. (2) NSTEMI (non-ST elevated myocardial infarction): Current visit: Yes Status: Acute Demand related ischemia in the setting of hypoxia that appears chronic and acutely worsened - ECG unchanged, and troponins have downtrended. - Continue ASA, high potency statin. Continue NTG prn. Avoid BB given severity of COPD. - Patient does have underlying CAD, s/p Stend in 2016 to the LAD, but with troponins downtrending and patient appearing asymptomatic. - Continue Heparin gtt X48 hours. - No evidence of wma's or depressed LVEF by current ECHO. - Will consider stress testing once acute illness is better controlled. - Discussed case with [facility] cardiology - medical management as above was the agreed upon course of action, with possible stress in the near future. (3) Cor pulmonale: Current visit: Yes Status: Acute PHTN with PAP in the 60-70's range, with resultant evidence of RV dilation and impaired function. Continue treatment of underlying lung disease, and monitor fluid status. Initial low dose Normal Saline discontinued. (4) Right-sided congestive heart failure: Current visit: Yes Status: Acute Noted. Monitor volume status. (5) Squamous cell lung cancer: Current visit: No Status: Acute Currently following with Oncology at [facility] - receiving Chemo and XRT. (6) High anion gap metabolic acidosis: Current visit: Yes Status: Acute Evidence of an initial compensated, anion gap metabolic acidosis with a Respiratory Alkalosis - unknown etiology. Remains essentially resolved. - Given significant initial Hypoxia question potential hypoperfusion - Lactic Acid checked and elevated. Also with hx CAD - ECG reviewed and non-ischemic, but with elevated trops as above. - Mild ketones in urine, but no history of DM - highly doubt DKA. Also denies any EtOH - also doubt AKA. Also denies ingestion (is on daily aspirin, but once a day low dose only). - No evidence of DAISY or uremia. Monitor closely, especially given respiratory status, for worsening tachypnea. Repeat ABG ordered but not performed - will check now. (7) DVT prophylaxis: Current visit: Yes Status: Acute SC Lovenox on hold as patient remains on heparin gtt. Remains on H2 jas for GI protection as well (allergy to PPI). (8) Advance directive discussed with patient: Current visit: Yes Status: Acute DNR/DNI Following lengthy conversation at time of admission. Subjective Interval history since last seen: 68 year old man with a prior history of COPD and Lung Ca, admitted from [facility] Emergency Department on 05/20 with a diagnosis of Acute COPD Exacerbation. Mr. Ambrose has a Past Medical History significant for likely end-stage COPD on Home O2, and RUL NSCLCa diagnosed in January of 2019. 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 His other history includes A1 Antitrypsin Deficiciency (Heterozygous), CAD s/p BASILIO to LAD in 2015, Polyclonal Gammopathy, Bladder Ca s/p BCG injections in 2012, HTN, Cancer related pain on chronic opiate therapy, and GERD. He also reports a 100+ pack year history of tobacco use, started at approximately 9 years of age. The patient was reportedly experiencing worsening dyspnea over the course of 3 days, acutely deteriorating on the morning of admission. He was transported to the ED via EMS. His work-up was pertinent for a low bicarb and elevated anion gap, Elevated BNP, and normal urinalysis. ABG was requested and showed a normal PH, with significant hypoxia, and a low PCO2. CT of the chest showed a lack of Pulmonary Emboli, decrease in the size of the RUL mass, and pathologic fracture of the sternum. He was noted to have significant wheezing, and was administered IV Steroids and High Flow Oxygen. His repeat ABG showed improvement in oxygen levels, with continuously low pCO2 and normal PH. He was referred for admission for further evaluation and treatment. Overnight on the evening of his admission Mr. Ambrose's troponin elevated, with repeat EKG essentially unchanged and not acutely ischemic. By the next morning he showed downtrending troponin and a normalized anion gap. His oxygenation was improved as well, and he feels symptomatically better. ECHO was ordered and showed a preserved LVEF, but with systolic dysfunction and dilation of the RV, PHTN, and borderline severe TR. No overnight events reported. Remains afebrile. Exam Narrative Exam Narrative: General: Patient appears less acutely ill but still chronically ill, AAOX3, NAD Neck: Supple CV: Regular, nontachycardic, S1S2, No rubs, murmurs, or gallops. Pulmonary: Clear to auscultation bilaterally, no crackles, wheezing, or rhonchi Abdomen: + Bowel Sounds, soft, nontender, nondistended Vascular: No lower extremity edema Psych: Normal mood and affect. Objective Objective Clinical Data: Abnormal lab results 05/21/19 05/21/19 05/21/19 Range/Units 11:00 15:35 22:50 WBC (4.4-10.8) k/cumm RBC (4.50-6.00) m/cumm Hgb (13.5-17.5) g/dL Hct (40.0-50.0) % Absolute Neutrophils (1.2-6.7) k/cumm Absolute Lymphocytes (1.2-3.4) k/cumm APTT 38.0 H D (21.0-31.4) sec Chloride (98-107) mmol/L Anion Gap (3-11) mmol/L BUN (7-18) mg/dL Glucose (70-100) mg/dL Lactate 1.8 H (0.6-1.4) mmol/L Calcium (8.5-10.1) mg/dL Troponin I 1.48 H* (0.00-0.06) ng/mL 05/22/19 05/22/19 05/22/19 Range/Units 05:45 05:45 05:45 WBC 13.54 H (4.4-10.8) k/cumm RBC 3.35 L (4.50-6.00) m/cumm Hgb 10.1 L (13.5-17.5) g/dL Hct 31.2 L (40.0-50.0) % Absolute Neutrophils 12.63 H (1.2-6.7) k/cumm Absolute Lymphocytes 0.30 L (1.2-3.4) k/cumm APTT (21.0-31.4) sec Chloride 110 H (98-107) mmol/L Anion Gap 12.4 H (3-11) mmol/L BUN 21 H D (7-18) mg/dL Glucose 144 H (70-100) mg/dL Lactate 1.7 H (0.6-1.4) mmol/L Calcium 8.2 L (8.5-10.1) mg/dL Troponin I (0.00-0.06) ng/mL 05/22/19 Range/Units 05:45 WBC (4.4-10.8) k/cumm RBC (4.50-6.00) m/cumm Hgb (13.5-17.5) g/dL Hct (40.0-50.0) % Absolute Neutrophils (1.2-6.7) k/cumm Absolute Lymphocytes (1.2-3.4) k/cumm APTT 42.2 H (21.0-31.4) sec Chloride (98-107) mmol/L Anion Gap (3-11) mmol/L BUN (7-18) mg/dL Glucose (70-100) mg/dL Lactate (0.6-1.4) mmol/L Calcium (8.5-10.1) mg/dL Troponin I (0.00-0.06) ng/mL Vital Signs Temperature 36.6 C 05/22/19 09:11 Temperature Source Tympanic 05/22/19 09:11 Pulse 80 05/22/19 09:11 Pulse 79 05/22/19 04:00 Respiratory Rate 15 05/22/19 09:11 Respiratory Effort Labored 05/22/19 09:11 Respiratory Depth Shallow 05/22/19 09:11 Respiratory Pattern Normal 05/22/19 09:11 Blood Pressure 151/95 H 05/22/19 09:11 Blood Pressure Mean 113 05/22/19 09:11 Blood Pressure Position Supine 05/22/19 09:11 Pulse Oximetry 89 L 05/22/19 09:11 Oxygen Delivery Method Hi Flow Nasal Cannula 05/22/19 09:11 Oxygen Flow Rate 30 05/22/19 09:11 Fraction of Inspired Oxygen (FIO2) 40 09/05/19 09:11 Pain Level 0 05/22/19 04:00 Intake & Output 05/21/19 05/21/19 05/22/19 11:59 23:59 11:59 Intake Total 480 / 1475.400 995.400 / 1475.400 818.00 / 818.00 Output Total 320 / 795 475 / 795 400 / 400 Balance 160 / 680.400 520.400 / 680.400 418.00 / 418.00 Weight 83.2 kg Intake: IV 795.400 / 795.400 818.00 / 818.00 Oral 480 / 680 200 / 680 Output: Urine 320 / 795 475 / 795 400 / 400 Other: Urine Color Brown Dark Talia Dark Talia Urine Appearance Clear Clear Urine Odor None None None Comment 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 dark brown. Per report. This RN has not visualized void. Stool Size Large Stool Characteristics Formed Laboratory Results WBC 13.54 k/cumm (4.4-10.8) H 05/22/19 05:45 RBC 3.35 m/cumm (4.50-6.00) L 05/22/19 05:45 Hgb 10.1 g/dL (13.5-17.5) L 05/22/19 05:45 Hct 31.2 % (40.0-50.0) L 05/22/19 05:45 MCV 93.1 fL (80-95) 05/22/19 05:45 MCH 30.1 pg (27.0-33.0) 05/22/19 05:45 MCHC 32.4 g/dL (32.0-36.0) 05/22/19 05:45 RDW % (11.8-14.1) 05/22/19 05:45 Plt Count 207 x1000/uL (130-400) 05/22/19 05:45 MPV 10.4 fL (8.0-11.0) 05/22/19 05:45 Immature Gran % 0.4 05/22/19 05:45 93.3 05/22/19 05:45 9.0 % 05/20/19 10:12 2.2 05/22/19 05:45 4.1 05/22/19 05:45 0.0 05/22/19 05:45 0.0 05/22/19 05:45 Absolute Neutrophils 12.63 k/cumm (1.2-6.7) H 05/22/19 05:45 Absolute Lymphocytes 0.30 k/cumm (1.2-3.4) L 05/22/19 05:45 Absolute Monocytes 0.56 k/cumm (0.11-0.7) 05/22/19 05:45 Absolute Eosinophils 0.00 k/cumm (0.0-0.7) 05/22/19 05:45 Absolute Basophils 0.00 k/cumm (0.0-0.2) 05/22/19 05:45 Rbc morph reviewed 05/22/19 05:45 RBC Morphology See below 05/22/19 05:45 Present 05/21/19 06:15 2+ 05/22/19 05:45 2+ 05/22/19 05:45 1+ 05/22/19 05:45 1+ 05/22/19 05:45 1+ 05/22/19 05:45 PT 11.6 sec (9.3-11.0) H 05/20/19 10:12 INR 1.2 (0.9-1.1) H 05/20/19 10:12 APTT 42.2 sec (21.0-31.4) H 05/22/19 05:45 Sample Site Cancelled 05/21/19 05:35 pCO2 Cancelled 05/21/19 05:35 pO2 Cancelled 05/21/19 05:35 O2 Saturation Cancelled 05/21/19 05:35 ABG pH Cancelled 05/21/19 05:35 ABG HCO3 Cancelled 05/21/19 05:35 ABG Total CO2 Cancelled 05/21/19 05:35 ABG Base Excess Cancelled 05/21/19 05:35 Oxygen Liter Flow Cancelled 05/21/19 05:35 Cancelled 05/21/19 05:35 Sodium 144 mmol/L (136-145) 05/22/19 05:45 Potassium 4.3 mmol/L (3.5-5.1) 05/22/19 05:45 Chloride 110 mmol/L (98-107) H 05/22/19 05:45 Carbon Dioxide 21.6 mmol/L (21.0-32.0) 05/22/19 05:45 12.4 mmol/L (3-11) H 05/22/19 05:45 BUN 21 mg/dL (7-18) H D 05/22/19 05:45 0.89 mg/dL (0.70-1.30) 05/22/19 05:45 >= 60.00 (mL/min/1.73m2) 05/22/19 05:45 Glucose 144 mg/dL (70-100) H 05/22/19 05:45 1.7 mmol/L (0.6-1.4) H 05/22/19 05:45 Calcium 8.2 mg/dL (8.5-10.1) L 05/22/19 05:45 Magnesium 2.1 mg/dL (1.8-2.4) 05/22/19 05:45 0.9 mg/dL (0.2-1.0) 05/20/19 10:12 AST 32 U/L (15-37) 05/20/19 10:12 ALT 35 U/L (16-63) 05/20/19 10:12 103 U/L (46-116) 05/20/19 10:12 1.48 ng/mL (0.00-0.06) H* 05/21/19 11:00 NT-Pro-B Natriuret Pep 8781 pg/mL (-299) H 05/20/19 10:12 6.6 g/dL (6.4-8.2) 05/20/19 10:12 2.9 g/dL (3.4-5.0) L 05/20/19 10:12 Talia (Yellow) 05/20/19 14:19 Clear (Clear) 05/20/19 14:19 5.5 (5-8) 05/20/19 14:19 Ur Specific [place] 1.015 (1.005-1.025) 05/20/19 14:19 Trace mg/dL (Negative) H 05/20/19 14:19 15 mg/dL (Negative) H 05/20/19 14:19 Negative (Negative) 05/20/19 14:19 Negative (Negative) 05/20/19 14:19 Negative (Negative) 05/20/19 14:19 1.0 EU/dL (Up TO 0.2) H 05/20/19 14:19 Ur Leukocyte Esterase Negative (Negative) 05/20/19 14:19 Negative (0-2) 05/20/19 14:19 0-2 HPF (0-5) 05/20/19 14:19 Ur Epithelial Cells Rare HPF (Negative) 05/20/19 14:19 Negative HPF (Negative) 05/20/19 14:19 Rare HPF (Negative) 05/20/19 14:19 Comment LPF (Negative) 05/20/19 14:19 Moderate (Negative) 05/20/19 14:19 Ur Culture Indicated? No 05/20/19 14:19 Negative mg/dL (Negative) 05/20/19 14:19
[2019-05-22] MEDS: Prochlorperazine 10 MG TAB PO (10:15)
[2019-05-22] MEDS: Celecoxib 200 MG CAP PO ×2 (10:27→21:01)
[2019-05-22] MEDS: Ondansetron 4 MG/2 ML VIAL (11:00)
[2019-05-22] MEDS: MORPHine 2 MG/ML SYR IVP (11:00)
[2019-05-22 11:04] LABS: BE -2.5 mmol/L (-3-3); HCO3 22 mmol/L (22-28); pCO2 31 mmHg (34-47); pH 7.45 (7.35-7.45); pO2 62 mmHg (83-108); sO2 92 % (94-98); tCO2 20 mmol/L (22-29)
[2019-05-22 11:10] LABS: Site Right Radial
[2019-05-22 12:30] LABS: PTT Activated 35.3 sec (21.0-31.4)
[2019-05-22 13:09] LABS: Troponin I 0.75 ng/mL (0.00-0.06)
[2019-05-22] MEDS: cefTRIAXone 2 GM/50 ML BAG IVPB (13:42)
[2019-05-22] MEDS: Levalbuterol 0.63 MG/3 ML UPD VIAL UPD (14:01)
[2019-05-22] MEDS: methylPREDNISolone SUCC 125 MG VIAL 40 MG IVP ×2 (15:51→21:00)
[2019-05-22] MEDS: LORazepam 1 MG TAB PO ×2 (15:51→21:02)
--- NOTE | 2019-05-22 16:21 | PDOC.CMPRO ---
- If Service Date Differs Date of service: 05/22/19 Time of Service: 16:21 Care Management Progress Note S/O:Simone was sitting up in bed, vomiting when CM came to see him. This was a new development and he was medicated for it with good effect. A later visit by CM found Simone and Josie chatting with Simone stating he was feeling much better. He was able to tolerate a small amount of food at lunch time. His breathing continues to improve as well, with Simone appearing much less short of breath. A: Simone is a 68 year old man admitted to [facility] on 05/20/19 with COPD exacerbation P; Simone is currently in the ICU receiving care for COPD. He also has lung cancer being treated at [facility]. Simone will likely be discharged home with new services. CM will continue to provide support to patient, family and discharge needs.
[2019-05-22 16:47] LABS: Troponin I 0.75 ng/mL (0.00-0.06)
[2019-05-22 20:04] LABS: PTT Activated 44.6 sec (21.0-31.4)
[2019-05-22] MEDS: Atorvastatin 40 MG TAB 80 MG PO (21:02)
[2019-05-22] MEDS: traZODone 100 MG TAB PO (21:03)
[2019-05-23] VITALS (34 sets, daily range): BP systolic 125–172; BP diastolic 80–111; PULSE 70–103; RESP 1–26; TEMP 31–37.2; O2SAT 82–97
[2019-05-23 02:30] LABS: PTT Activated 36.8 sec (21.0-31.4)
[2019-05-23] MEDS: methylPREDNISolone SUCC 125 MG VIAL 40 MG IVP ×4 (04:32→22:19)
[2019-05-23 06:40] LABS: Lactate 1.7 mmol/L (0.6-1.4)
[2019-05-23 06:47] LABS: Abs Immature Grans 0.11 k/cumm (0.0-0.09); HCT 30.6 % (40.0-50.0); HGB 9.7 g/dL (13.5-17.5); Mean Corp. HGB Concentration 31.7 g/dL (32.0-36.0); Mean Corpuscular Hemoglobin 29.9 pg (27.0-33.0); Mean Corpuscular Volume 94.4 fL (80-95); Mean Platelet Volume 10.8 fL (8.0-11.0); Platelet Count 242 x1000/uL (130-400); RBC 3.24 m/cumm (4.50-6.00); White Blood Cell Count 12.77 k/cumm (4.4-10.8)
[2019-05-23 07:05] LABS: Anion Gap 7.6 mmol/L (3-11); BUN 27 mg/dL (7-18); CO2 25.4 mmol/L (21.0-32.0); CREATININE 0.94 mg/dL (0.70-1.30); Calcium 8.1 mg/dL (8.5-10.1); Chloride 110 mmol/L (98-107); Glucose 141 mg/dL (70-100); Magnesium 2.3 mg/dL (1.8-2.4); Potassium 4.2 mmol/L (3.5-5.1); Sodium 143 mmol/L (136-145)
[2019-05-23 07:12] LABS: Troponin I 0.59 ng/mL (0.00-0.06)
[2019-05-23] MEDS: Albuterol/Ipratropium 3 ML UPD VIAL UPD ×4 (07:39→20:02)
[2019-05-23] MEDS: Budesonide 0.5 MG/2 ML UPD VIAL UPD ×2 (07:47→18:13)
[2019-05-23 08:16] LABS: Absolute Lymphocyte Count 0.51 k/cumm (1.2-3.4); Absolute Monocyte Count 0.13 k/cumm (0.11-0.7)
[2019-05-23 08:18] LABS: Diff Comment Manual Differential
[2019-05-23 08:19] LABS: Anisocytosis 3+; Macrocytosis 3+; Microcytosis 3+
[2019-05-23 09:21] LABS: PTT Activated 50.3 sec (21.0-31.4)
[2019-05-23] MEDS: fentaNYL 25 MCG PATCH TD (09:23)
[2019-05-23] MEDS: Patch Removal 1 EACH TP (09:23)
[2019-05-23] MEDS: Acetaminophen 500 MG TAB 1000 MG PO ×3 (09:24→20:02)
[2019-05-23] MEDS: Sertraline 50 MG TAB 200 MG PO (09:24)
[2019-05-23] MEDS: Celecoxib 200 MG CAP PO ×2 (09:25→20:02)
[2019-05-23] MEDS: Aspirin E.C. 81 MG TABEC PO (09:25)
[2019-05-23] MEDS: Gabapentin 300 MG CAP 900 MG PO ×2 (09:25→20:02)
[2019-05-23] MEDS: Baclofen 10 MG TAB PO ×2 (09:25→20:02)
--- NOTE | 2019-05-23 09:43 | PDOC.CMPRO ---
- If Service Date Differs Date of service: 05/23/19 Time of Service: 09:43 Care Management Progress Note S/O:Simone was sitting up in bed when CM came to see him. His sister was visiting and Simone was smiling and laughing. His color was much better and he seemed more animated than he has all week. He admitted he was feeling better and stated that he is hoping he can be discharged soon.If he continues to improve, it is likely he will be transitioned out of the ICU this weekend. A: Simone is a 68 year old man admitted to [facility] on 05/20/19 with COPD exacerbation P; Simone is currently in the ICU receiving care for COPD. He also has lung cancer being treated at [facility]. Simone will likely be discharged home with new services. CM will continue to provide support to patient, family and discharge needs.
--- NOTE | 2019-05-23 11:04 | W.PM.PROGNOT ---
Date of Service Date of service: 05/23/19 Time of Service: 11:04 Assessment and Plan (1) COPD (chronic obstructive pulmonary disease): Current visit: Yes Status: Chronic Initial wheezing has dissipated, with good airflow. No evidence of infiltrates or PE by CT Scan. - Continue IV Steroids with slight wean started on 05/23, and given change in cough and sputum would benefit from Abx - CTx day #4. - Continue standing duonebs, and continue nebulized budesonide, and frequent prn Levalbuterol. Low dose Morphine if needed. - Will likely need a prolonged treatment course given the extent of his underlying disease process. For now continue to wean high flow Oxygen as able. - Palliative care consulted and following. Overall appears improved. (2) NSTEMI (non-ST elevated myocardial infarction): Current visit: Yes Status: Acute Demand related ischemia in the setting of hypoxia that appears chronic and acutely worsened - ECG unchanged, and troponins have downtrended. - Continue ASA, high potency statin. Continue NTG prn. Avoid BB given severity of COPD. - Patient does have underlying CAD, s/p BASILIO Stent in 2016 to the LAD, but with troponins downtrending and patient appearing asymptomatic. - Anticoagulated with Heparin gtt X48 hours - discontinue now. - No evidence of wma's or depressed LVEF by current ECHO. - Will consider stress testing once acute illness is better controlled. - Discuss[place] case with [facility] [place] - medical management as above was the agreed upon course of action, with possible stress in the near future. (3) Cor pulmonale: Current visit: Yes Status: Acute PHTN with PAP in the 60-70's range, with resultant evidence of RV dilation and impaired function. Continue treatment of underlying lung disease, and monitor fluid status. Initial low dose Normal Saline discontinued. (4) Right-sided congestive heart failure: Current visit: Yes Status: Acute Noted. Monitor volume status. (5) Squamous cell lung cancer: Current visit: No Status: Acute Currently following with [place] [facility] [place] receiving Chemo and XRT. (6) High anion gap metabolic acidosis: Current visit: Yes Status: Acute Evidence of an initial compensated, anion gap metabolic acidosis with a Respiratory Alkalosis - unknown etiology. Remains resolved with improved oxygenation - Given significant initial Hypoxia question potential hypoperfusion - Lactic Acid checked and elevated (improved but still mildly high). Also with hx CAD - ECG reviewed and non-ischemic, but with elevated trops as above. - Mild ketones in urine, but no history of DM - highly doubt DKA. Also denies any EtOH - also doubt AKA. Also denies ingestion (is on daily aspirin, but once a day low dose only). - No evidence of DAISY or uremia. Monitor closely, especially given respiratory status, for worsening tachypnea. Repeat ABG with slight improvement. (7) DVT prophylaxis: Current visit: Yes Status: Acute SC Lovenox 2 hours post discontinuation of heparin gtt. Remains on H2 jas for GI protection as well (allergy to PPI). (8) Advance directive discussed with patient: Current visit: Yes Status: Acute DNR/DNI Following lengthy conversation at time of admission. Subjective Interval history since last seen: 68 year old man with a prior history of COPD and Lung Ca, admitted from [facility] Emergency Department on 05/20 with a diagnosis of Acute COPD Exacerbation. Mr. Ambrose has a Past Medical History significant for likely end-stage COPD on Home O2, and RUL NSCLCa diagnosed in January of 2019. 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 His other history includes A1 Antitrypsin Deficiciency (Heterozygous), CAD s/p BASILIO to LAD in 2015, Polyclonal Gammopathy, Bladder Ca s/p BCG injections in 2012, HTN, Cancer related pain on chronic opiate therapy, and GERD. He also reports a 100+ pack year history of tobacco use, started at approximately 9 years of age. The patient was reportedly experiencing worsening dyspnea over the course of 3 days, acutely deteriorating on the morning of admission. He was transported to the ED via EMS. His work-up was pertinent for a low bicarb and elevated anion gap, Elevated BNP, and normal urinalysis. ABG was requested and showed a normal PH, with significant hypoxia, and a low PCO2. CT of the chest showed a lack of Pulmonary Emboli, decrease in the size of the RUL mass, and pathologic fracture of the sternum. He was noted to have significant wheezing, and was administered IV Steroids and High Flow Oxygen. His repeat ABG showed improvement in oxygen levels, with continuously low pCO2 and normal PH. He was referred for admission for further evaluation and treatment. Overnight on the evening of his admission Mr. Ambrose's troponin elevated, with repeat EKG essentially unchanged and not acutely ischemic. By the next morning he showed downtrending troponin and a normalized anion gap, which continues this morning. His oxygenation was improved as well, and he feels symptomatically better. ECHO was ordered and showed a preserved LVEF, but with systolic dysfunction and dilation of the RV, PHTN, and borderline severe TR. No further episodes of nausea or vomiting were noted. No overnight events reported. Remains afebrile. Exam Narrative Exam Narrative: General: Appears chronically ill but non-toxic, AAOX3, NAD Neck: Supple CV: Regular, nontachycardic, S1S2, No rubs, murmurs, or gallops. Pulmonary: Clear to auscultation bilaterally, no crackles, wheezing, or rhonchi Abdomen: + Bowel Sounds, soft, nontender, nondistended Vascular: No lower extremity edema Psych: Normal mood and affect. Objective Objective Clinical Data: Abnormal lab results 05/22/19 05/22/19 05/22/19 Range/Units 10:50 11:50 12:36 WBC (4.4-10.8) k/cumm RBC (4.50-6.00) m/cumm Hgb (13.5-17.5) g/dL Hct (40.0-50.0) % MCHC (32.0-36.0) g/dL Absolute Neutrophils (1.2-6.7) k/cumm Absolute Lymphocytes (1.2-3.4) k/cumm APTT 35.3 H (21.0-31.4) sec pCO2 31 L (34-47) mmHg pO2 62 L (83-108) mmHg O2 Saturation 92 L (94-98) % ABG Total CO2 20 L (22-29) mmol/L Chloride (98-107) mmol/L BUN (7-18) mg/dL Glucose (70-100) mg/dL Lactate (0.6-1.4) mmol/L Calcium (8.5-10.1) mg/dL Troponin I 0.75 H* (0.00-0.06) ng/mL 05/22/19 05/22/19 05/22/19 Range/Units 16:05 19:40 19:40 WBC (4.4-10.8) k/cumm RBC (4.50-6.00) m/cumm Hgb (13.5-17.5) g/dL Hct (40.0-50.0) % MCHC (32.0-36.0) g/dL Absolute Neutrophils (1.2-6.7) k/cumm Absolute Lymphocytes (1.2-3.4) k/cumm APTT 44.6 H D (21.0-31.4) sec pCO2 (34-47) mmHg pO2 (83-108) mmHg O2 Saturation (94-98) % ABG Total CO2 (22-29) mmol/L Chloride (98-107) mmol/L BUN (7-18) mg/dL Glucose (70-100) mg/dL Lactate (0.6-1.4) mmol/L Calcium (8.5-10.1) mg/dL Troponin I 0.75 H* 0.70 H* (0.00-0.06) ng/mL 05/23/19 05/23/19 05/23/19 Range/Units 02:05 06:25 06:25 WBC 12.77 H (4.4-10.8) k/cumm RBC 3.24 L (4.50-6.00) m/cumm Hgb 9.7 L (13.5-17.5) g/dL Hct 30.6 L (40.0-50.0) % MCHC 31.7 L (32.0-36.0) g/dL Absolute Neutrophils 12.00 H (1.2-6.7) k/cumm Absolute Lymphocytes 0.51 L (1.2-3.4) k/cumm APTT 36.8 H (21.0-31.4) sec pCO2 (34-47) mmHg pO2 (83-108) mmHg O2 Saturation (94-98) % ABG Total CO2 (22-29) mmol/L Chloride 110 H (98-107) mmol/L BUN 27 H (7-18) mg/dL Glucose 141 H (70-100) mg/dL Lactate (0.6-1.4) mmol/L Calcium 8.1 L (8.5-10.1) mg/dL Troponin I 0.59 H* (0.00-0.06) ng/mL 05/23/19 05/23/19 Range/Units 06:25 08:58 WBC (4.4-10.8) k/cumm RBC (4.50-6.00) m/cumm Hgb (13.5-17.5) g/dL Hct (40.0-50.0) % MCHC (32.0-36.0) g/dL Absolute Neutrophils (1.2-6.7) k/cumm Absolute Lymphocytes (1.2-3.4) k/cumm APTT 50.3 H D (21.0-31.4) sec pCO2 (34-47) mmHg pO2 (83-108) mmHg O2 Saturation (94-98) % ABG Total CO2 (22-29) mmol/L Chloride (98-107) mmol/L BUN (7-18) mg/dL Glucose (70-100) mg/dL Lactate 1.7 H (0.6-1.4) mmol/L Calcium (8.5-10.1) mg/dL Troponin I (0.00-0.06) ng/mL Vital Signs Temperature 36.7 C 05/23/19 04:30 Temperature Source Temporal Artery Scan 05/23/19 04:30 Pulse 78 05/23/19 07:39 Pulse 77 05/23/19 06:00 Respiratory Rate 18 05/23/19 07:39 Respiratory Effort 05/23/19 04:30 Respiratory Depth Normal 05/23/19 04:30 Respiratory Pattern Normal 05/23/19 04:30 Blood Pressure 155/86 H 05/23/19 06:00 Blood Pressure Mean 104 05/23/19 06:00 Blood Pressure Position Supine 05/22/19 15:30 Pulse Oximetry 90 L 05/23/19 07:39 Oxygen Delivery Method Hi Flow System 05/23/19 07:39 Oxygen Flow Rate 40 05/23/19 08:53 Fraction of Inspired Oxygen (FIO2) 40 05/23/19 08:53 Pain Level 0 05/23/19 04:30 Intake & Output 05/22/19 05/22/19 05/23/19 11:59 23:59 11:59 Intake Total 1043.00 / 2850.500 1307.500 / 2850.500 654.5 / 654.5 Output Total 475 / 1300 475 / 1300 650 / 650 Balance 568.00 / 1550.500 832.500 / 1550.500 4.5 / 4.5 Weight 83.2 kg Intake: IV 1043.00 / 1310.500 267.500 / 1310.500 154.5 / 154.5 Oral 1040 / 1540 500 / 500 Output: Urine 400 / 1225 475 / 1225 650 / 650 Emesis 75 / 75 Other: Urine Color Dark Talia Dark Talia Light Talia Urine Appearance Sediment Urine Odor None Strong Comment 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 Stool Size Large Stool Characteristics Formed Emesis Description Retching Undigested Food Bile Gastric Occult Blood Negative Voiding Methods Urinal Laboratory Results WBC 12.77 k/cumm (4.4-10.8) H 05/23/19 06:25 RBC 3.24 m/cumm (4.50-6.00) L 05/23/19 06:25 Hgb 9.7 g/dL (13.5-17.5) L 05/23/19 06:25 Hct 30.6 % (40.0-50.0) L 05/23/19 06:25 MCV 94.4 fL (80-95) 05/23/19 06:25 MCH 29.9 pg (27.0-33.0) 05/23/19 06:25 MCHC 31.7 g/dL (32.0-36.0) L 05/23/19 06:25 RDW % (11.8-14.1) 05/23/19 06:25 Plt Count 242 x1000/uL (130-400) 05/23/19 06:25 MPV 10.8 fL (8.0-11.0) 05/23/19 06:25 Immature Gran % See Differential 05/23/19 06:25 90.0 05/23/19 06:25 4.0 % 05/23/19 06:25 4.0 05/23/19 06:25 1.0 05/23/19 06:25 0.0 05/23/19 06:25 0.0 05/23/19 06:25 1.0 % 05/23/19 06:25 Absolute Neutrophils 12.00 k/cumm (1.2-6.7) H 05/23/19 06:25 Absolute Lymphocytes 0.51 k/cumm (1.2-3.4) L 05/23/19 06:25 Absolute Monocytes 0.13 k/cumm (0.11-0.7) 05/23/19 06:25 Absolute Eosinophils 0.00 k/cumm (0.0-0.7) 05/23/19 06:25 Absolute Basophils 0.00 k/cumm (0.0-0.2) 05/23/19 06:25 Manual differential 05/23/19 06:25 RBC Morphology See below 05/23/19 06:25 Present 05/21/19 06:15 2+ 05/22/19 05:45 3+ 05/23/19 06:25 3+ 05/23/19 06:25 3+ 05/23/19 06:25 1+ 05/22/19 05:45 PT 11.6 sec (9.3-11.0) H 05/20/19 10:12 INR 1.2 (0.9-1.1) H 05/20/19 10:12 APTT 50.3 sec (21.0-31.4) H D 05/23/19 08:58 Sample Site Right radial 05/22/19 10:50 pCO2 31 mmHg (34-47) L 05/22/19 10:50 pO2 62 mmHg (83-108) L 05/22/19 10:50 O2 Saturation 92 % (94-98) L 05/22/19 10:50 ABG pH 7.45 (7.35-7.45) 05/22/19 10:50 ABG HCO3 22 mmol/L (22-28) 05/22/19 10:50 ABG Total CO2 20 mmol/L (22-29) L 05/22/19 10:50 ABG Base Excess -2.5 mmol/L (-3-3) 05/22/19 10:50 Oxygen Liter Flow Cancelled 05/21/19 05:35 Cancelled 05/21/19 05:35 Sodium 143 mmol/L (136-145) 05/23/19 06:25 Potassium 4.2 mmol/L (3.5-5.1) 05/23/19 06:25 Chloride 110 mmol/L (98-107) H 05/23/19 06:25 Carbon Dioxide 25.4 mmol/L (21.0-32.0) 05/23/19 06:25 7.6 mmol/L (3-11) 05/23/19 06:25 BUN 27 mg/dL (7-18) H 05/23/19 06:25 0.94 mg/dL (0.70-1.30) 05/23/19 06:25 >= 60.00 (mL/min/1.73m2) 05/23/19 06:25 Glucose 141 mg/dL (70-100) H 05/23/19 06:25 1.7 mmol/L (0.6-1.4) H 05/23/19 06:25 Calcium 8.1 mg/dL (8.5-10.1) L 05/23/19 06:25 Magnesium 2.3 mg/dL (1.8-2.4) 05/23/19 06:25 0.9 mg/dL (0.2-1.0) 05/20/19 10:12 AST 32 U/L (15-37) 05/20/19 10:12 ALT 35 U/L (16-63) 05/20/19 10:12 103 U/L (46-116) 05/20/19 10:12 0.59 ng/mL (0.00-0.06) H* 05/23/19 06:25 NT-Pro-B Natriuret Pep 8781 pg/mL (-299) H 05/20/19 10:12 6.6 g/dL (6.4-8.2) 05/20/19 10:12 2.9 g/dL (3.4-5.0) L 05/20/19 10:12 Talia (Yellow) 05/20/19 14:19 Clear (Clear) 05/20/19 14:19 5.5 (5-8) 05/20/19 14:19 Ur Specific [place] 1.015 (1.005-1.025) 05/20/19 14:19 Trace mg/dL (Negative) H 05/20/19 14:19 15 mg/dL (Negative) H 05/20/19 14:19 Negative (Negative) 05/20/19 14:19 Negative (Negative) 05/20/19 14:19 Negative (Negative) 05/20/19 14:19 1.0 EU/dL (Up TO 0.2) H 05/20/19 14:19 Ur Leukocyte Esterase Negative (Negative) 05/20/19 14:19 Negative (0-2) 05/20/19 14:19 0-2 HPF (0-5) 05/20/19 14:19 Ur Epithelial Cells Rare HPF (Negative) 05/20/19 14:19 Negative HPF (Negative) 05/20/19 14:19 Rare HPF (Negative) 05/20/19 14:19 Comment LPF (Negative) 05/20/19 14:19 Moderate (Negative) 05/20/19 14:19 Ur Culture Indicated? No 05/20/19 14:19 Negative mg/dL (Negative) 05/20/19 14:19
[2019-05-23] MEDS: cefTRIAXone 2 GM/50 ML BAG IVPB (14:21)
[2019-05-23] MEDS: Enoxaparin 40 MG/0.4 ML SYR SC (14:22)
--- NOTE | 2019-05-23 14:50 | PCPN_ITS ---
Date of service: 05/23/19 Time of Service: 12:51 Assessment and Plan (1) NSTEMI (non-ST elevated myocardial infarction): Current visit: Yes Status: Acute (2) COPD (chronic obstructive pulmonary disease): Current visit: Yes Status: Chronic (3) Squamous cell lung cancer: Current visit: No Status: Acute (4) Pulmonary hypertension: Current visit: Yes Status: Acute He is continuing to feel better, but also desatting. He will require the high flow O2 to remain properly oxygenated. Respiratiry is working on this. He needs to complete a WILL for distribution of possessions Completed a COLST I did speak with his Oncologist, Dr Olson....He felt his lung cancer was responding to treatment, but that his COPD, pulmonary hypertension and recent [place] were all working against Jose Subjective Patient reports: feels better, pain is less, flatus, bowel movement, nausea (less from yesterday) and shortness of breath Interval history since last seen: Generally feeling a lot better than yesterday. He is still desating into lower 70's per nursing. He is asymptomatic when this occurs. Exam Narrative Exam Narrative: Lying in be. Two sisters and grandson in the room Const General: cooperative and comfortable Nutritional Appearance: thin Orientation: oriented x3 Resp Auscultation: diminished lung sounds Cardio Rhythm: regular rhythm Psych Appearance: grossly normal Speech and Movement: speech clear Objective Objective Clinical Data: Patient Name: JOSE BISHOP #: [id number]: ICU Ordering Provider: Umair Dyer M.D. : ADM IN Primary Care Provider: Malka Sandhu M.D.Date of Exam: 05/21/19Sex: M : 3Age: 68 Exam(s) a US:US echocardiogram *[facility]* *[facility]* [address] [place] [address] Date of study: 05/21/2019 Transthoracic Echocardiography M-mode, complete 2D, complete spectral Doppler, and color Doppler *STUDY CONCLUSIONS* Summary: 1. Left ventricle: The cavity size was normal. Systolic function was normal. The estimated ejection fraction was 55-60%. Some parameters suggest diastolic dysfunction. There was no evidence of elevated ventricular filling pressure by Doppler parameters. 2. Ventricular septum: Septal motion showed abnormal function and paradoxical motion. The contour showed diastolic flattening and systolic flattening. The outflow septum had a sigmoid appearance. These changes are consistent with RV volume and RV pressure overload. 3. Mitral valve: There was mild regurgitation. 4. Left atrium: The atrium was moderately dilated. 5. Right ventricle: The cavity size was severely dilated. Systolic function was severely reduced. 6. Right atrium: The atrium was severely dilated. 7. Tricuspid valve: There was moderate-severe regurgitation directed eccentrically. 8. Pulmonary arteries: Pulmonary systolic pressure was in the range of 60mm Hg to 70mm Hg. 9. Inferior vena cava: The vessel was patent and dilated with some respirophasic diameter changes . RAP est 5-10 mmHg.. Abnormal lab results 05/22/19 05/22/19 05/22/19 Range/Units 16:05 19:40 19:40 WBC (4.4-10.8) k/cumm RBC (4.50-6.00) m/cumm Hgb (13.5-17.5) g/dL Hct (40.0-50.0) % MCHC (32.0-36.0) g/dL Absolute Neutrophils (1.2-6.7) k/cumm Absolute Lymphocytes (1.2-3.4) k/cumm APTT 44.6 H D (21.0-31.4) sec Chloride (98-107) mmol/L BUN (7-18) mg/dL Glucose (70-100) mg/dL Lactate (0.6-1.4) mmol/L Calcium (8.5-10.1) mg/dL Troponin I 0.75 H* 0.70 H* (0.00-0.06) ng/mL 05/23/19 05/23/19 05/23/19 Range/Units 02:05 06:25 06:25 WBC 12.77 H (4.4-10.8) k/cumm RBC 3.24 L (4.50-6.00) m/cumm Hgb 9.7 L (13.5-17.5) g/dL Hct 30.6 L (40.0-50.0) % MCHC 31.7 L (32.0-36.0) g/dL Absolute Neutrophils 12.00 H (1.2-6.7) k/cumm Absolute Lymphocytes 0.51 L (1.2-3.4) k/cumm APTT 36.8 H (21.0-31.4) sec Chloride 110 H (98-107) mmol/L BUN 27 H (7-18) mg/dL Glucose 141 H (70-100) mg/dL Lactate (0.6-1.4) mmol/L Calcium 8.1 L (8.5-10.1) mg/dL Troponin I 0.59 H* (0.00-0.06) ng/mL 05/23/19 05/23/19 Range/Units 06:25 08:58 WBC (4.4-10.8) k/cumm RBC (4.50-6.00) m/cumm Hgb (13.5-17.5) g/dL Hct (40.0-50.0) % MCHC (32.0-36.0) g/dL Absolute Neutrophils (1.2-6.7) k/cumm Absolute Lymphocytes (1.2-3.4) k/cumm APTT 50.3 H D (21.0-31.4) sec Chloride (98-107) mmol/L BUN (7-18) mg/dL Glucose (70-100) mg/dL Lactate 1.7 H (0.6-1.4) mmol/L Calcium (8.5-10.1) mg/dL Troponin I (0.00-0.06) ng/mL Vital Signs Temperature 97.9 F 05/23/19 08:00 Temperature Source Temporal Artery Scan 05/23/19 08:00 Pulse 103 H 05/23/19 14:01 Pulse 77 05/23/19 06:00 Respiratory Rate 21 05/23/19 14:01 Respiratory Effort 05/23/19 08:00 Respiratory Depth Normal 05/23/19 08:00 Respiratory Pattern Normal 05/23/19 08:00 Blood Pressure 138/86 05/23/19 14:01 Blood Pressure Mean 106 05/23/19 08:00 Blood Pressure Position Supine 05/22/19 15:30 Pulse Oximetry 82 L 05/23/19 14:00 Oxygen Delivery Method Hi Flow System 05/23/19 11:43 Oxygen Flow Rate 40 05/23/19 14:32 Fraction of Inspired Oxygen (FIO2) 40 05/23/19 14:32 Pain Level 0 05/23/19 08:00 Intake & Output 05/22/19 05/23/19 05/23/19 23:59 11:59 23:59 Intake Total 1307.500 / 2850.500 656.4 / 896.4 240 / 896.4 Output Total 475 / 1300 1350 / 1650 300 / 1650 Balance 832.500 / 1550.500 -693.6 / -753.6 -60 / -753.6 Weight 183 lb 6.793 oz Intake: IV 267.500 / 1310.500 156.4 / 156.4 Oral 1040 / 1540 500 / 740 240 / 740 Output: Urine 475 / 1225 1350 / 1650 300 / 1650 Other: Urine Color Dark Talia Light Talia Light Talia Urine Appearance Sediment Urine Odor Strong Comment 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0 05/23/19 06:25 1.0 % 05/23/19 06:25 Absolute Neutrophils 12.00 k/cumm (1.2-6.7) H 05/23/19 06:25 Absolute Lymphocytes 0.51 k/cumm (1.2-3.4) L 05/23/19 06:25 Absolute Monocytes 0.13 k/cumm (0.11-0.7) 05/23/19 06:25 Absolute Eosinophils 0.00 k/cumm (0.0-0.7) 05/23/19 06:25 Absolute Basophils 0.00 k/cumm (0.0-0.2) 05/23/19 06:25 Manual differential 05/23/19 06:25 RBC Morphology See below 05/23/19 06:25 Present 05/21/19 06:15 2+ 05/22/19 05:45 3+ 05/23/19 06:25 3+ 05/23/19 06:25 3+ 05/23/19 06:25 1+ 05/22/19 05:45 PT 11.6 sec (9.3-11.0) H 05/20/19 10:12 INR 1.2 (0.9-1.1) H 05/20/19 10:12 APTT 50.3 sec (21.0-31.4) H D 05/23/19 08:58 Sample Site Right radial 05/22/19 10:50 pCO2 31 mmHg (34-47) L 05/22/19 10:50 pO2 62 mmHg (83-108) L 05/22/19 10:50 O2 Saturation 92 % (94-98) L 05/22/19 10:50 ABG pH 7.45 (7.35-7.45) 05/22/19 10:50 ABG HCO3 22 mmol/L (22-28) 05/22/19 10:50 ABG Total CO2 20 mmol/L (22-29) L 05/22/19 10:50 ABG Base Excess -2.5 mmol/L (-3-3) 05/22/19 10:50 Oxygen Liter Flow Cancelled 05/21/19 05:35 Cancelled 05/21/19 05:35 Sodium 143 mmol/L (136-145) 05/23/19 06:25 Potassium 4.2 mmol/L (3.5-5.1) 05/23/19 06:25 Chloride 110 mmol/L (98-107) H 05/23/19 06:25 Carbon Dioxide 25.4 mmol/L (21.0-32.0) 05/23/19 06:25 7.6 mmol/L (3-11) 05/23/19 06:25 BUN 27 mg/dL (7-18) H 05/23/19 06:25 0.94 mg/dL (0.70-1.30) 05/23/19 06:25 >= 60.00 (mL/min/1.73m2) 05/23/19 06:25 Glucose 141 mg/dL (70-100) H 05/23/19 06:25 1.7 mmol/L (0.6-1.4) H 05/23/19 06:25 Calcium 8.1 mg/dL (8.5-10.1) L 05/23/19 06:25 Magnesium 2.3 mg/dL (1.8-2.4) 05/23/19 06:25 0.9 mg/dL (0.2-1.0) 05/20/19 10:12 AST 32 U/L (15-37) 05/20/19 10:12 ALT 35 U/L (16-63) 05/20/19 10:12 103 U/L (46-116) 05/20/19 10:12 0.59 ng/mL (0.00-0.06) H* 05/23/19 06:25 NT-Pro-B Natriuret Pep 8781 pg/mL (-299) H 05/20/19 10:12 6.6 g/dL (6.4-8.2) 05/20/19 10:12 2.9 g/dL (3.4-5.0) L 05/20/19 10:12 Talia (Yellow) 05/20/19 14:19 Clear (Clear) 05/20/19 14:19 5.5 (5-8) 05/20/19 14:19 Ur Specific [place] 1.015 (1.005-1.025) 05/20/19 14:19 Trace mg/dL (Negative) H 05/20/19 14:19 15 mg/dL (Negative) H 05/20/19 14:19 Negative (Negative) 05/20/19 14:19 Negative (Negative) 05/20/19 14:19 Negative (Negative) 05/20/19 14:19 1.0 EU/dL (Up TO 0.2) H 05/20/19 14:19 Ur Leukocyte Esterase Negative (Negative) 05/20/19 14:19 Negative (0-2) 05/20/19 14:19 0-2 HPF (0-5) 05/20/19 14:19 Ur Epithelial Cells Rare HPF (Negative) 05/20/19 14:19 Negative HPF (Negative) 05/20/19 14:19 Rare HPF (Negative) 05/20/19 14:19 Comment LPF (Negative) 05/20/19 14:19 Moderate (Negative) 05/20/19 14:19 Ur Culture Indicated? No 05/20/19 14:19 Negative mg/dL (Negative) 05/20/19 14:19
[2019-05-23] MEDS: Normal Saline Flush 10 ML SYR IVP (16:20)
[2019-05-23] MEDS: Atorvastatin 40 MG TAB 80 MG PO (20:02)
[2019-05-23] MEDS: traZODone 100 MG TAB PO (22:20)
[2019-05-24] VITALS (20 sets, daily range): BP systolic 147–183; BP diastolic 93–116; PULSE 67–97; RESP 1–19; TEMP 36.4–37.2; O2SAT 90–99
[2019-05-24] MEDS: methylPREDNISolone SUCC 125 MG VIAL 40 MG IVP ×3 (05:58→21:01)
[2019-05-24] MEDS: Normal Saline Flush 10 ML SYR IVP ×3 (05:59→21:01)
[2019-05-24 07:38] LABS: Abs Immature Grans 0.32 k/cumm (0.0-0.09); HCT 33.2 % (40.0-50.0); HGB 10.5 g/dL (13.5-17.5); Mean Corp. HGB Concentration 31.6 g/dL (32.0-36.0); Mean Corpuscular Hemoglobin 29.7 pg (27.0-33.0); Mean Corpuscular Volume 94.1 fL (80-95); Mean Platelet Volume 10.6 fL (8.0-11.0); Platelet Count 252 x1000/uL (130-400); RBC 3.53 m/cumm (4.50-6.00); White Blood Cell Count 12.08 k/cumm (4.4-10.8)
--- NOTE | 2019-05-24 07:48 | PDOC.CMPRO ---
Care Management Progress Note S/O: Simone is still requiring high flow oxygen to maintain oxygen saturations above 88-89% and per RT is not eligible for Trilogy machine due to barriers in his insurance coverage. CM continues to follow. A: Simone is a 68 year old male admitted to [facility] on 05/20/19 with COPD exacerbation P; Simone continues to be closely monitored while receiving care for COPD. He also has lung cancer being treated as an outpatient at [facility]. 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 CM will continue to provide support to patient, family and discharge needs.
[2019-05-24] MEDS: Albuterol/Ipratropium 3 ML UPD VIAL UPD ×4 (08:07→21:06)
[2019-05-24 08:09] LABS: Anion Gap 9.6 mmol/L (3-11); BUN 20 mg/dL (7-18); CO2 26.4 mmol/L (21.0-32.0); CREATININE 0.88 mg/dL (0.70-1.30); Calcium 8.3 mg/dL (8.5-10.1); Chloride 108 mmol/L (98-107); Glucose 110 mg/dL (70-100); Magnesium 2.1 mg/dL (1.8-2.4); Potassium 3.9 mmol/L (3.5-5.1); Sodium 144 mmol/L (136-145)
[2019-05-24] MEDS: Acetaminophen 500 MG TAB 1000 MG PO ×3 (08:45→21:02)
[2019-05-24] MEDS: Aspirin E.C. 81 MG TABEC PO (08:46)
[2019-05-24] MEDS: Sertraline 50 MG TAB 200 MG PO (08:46)
[2019-05-24] MEDS: Gabapentin 300 MG CAP 900 MG PO ×2 (08:46→21:02)
[2019-05-24] MEDS: Lisinopril 10 MG TAB PO (08:46)
[2019-05-24] MEDS: Baclofen 10 MG TAB PO ×2 (08:47→21:05)
[2019-05-24] MEDS: Celecoxib 200 MG CAP PO ×2 (08:47→21:01)
[2019-05-24] MEDS: LORazepam 1 MG TAB PO (08:50)
[2019-05-24 09:00] LABS: Absolute Lymphocyte Count 0.36 k/cumm (1.2-3.4); Absolute Monocyte Count 0.24 k/cumm (0.11-0.7); Absolute Neutrophil Count 11.48 k/cumm (1.2-6.7)
[2019-05-24 09:01] LABS: Anisocytosis 2+; Diff Comment Manual Differential; Hypochromasia 2+; Microcytosis 1+; Polychromasia Present; Schistocytes 1+; Tear Drop Cells 2+
[2019-05-24 09:02] LABS: Poikilocytes 2+
[2019-05-24] MEDS: Budesonide 0.5 MG/2 ML UPD VIAL UPD ×2 (09:42→18:24)
--- NOTE | 2019-05-24 12:39 | W.PM.PROGNOT ---
Date of Service Date of service: 05/24/19 Time of Service: 08:15 Assessment and Plan (1) COPD (chronic obstructive pulmonary disease): Current visit: Yes Status: Chronic The etiology of his profound hypoxemia alludes me. Perhaps infectious trigger on a background of advanced COPD? Still requiring high flow oxygen to maintain oxygen saturations above 88-89%. I am continuing on systemic steroids but gradually reduce the dose. Continue inhaled corticosteroids. Consider trialing metered-dose inhaler with long-acting beta agonist and long-acting muscarinic. Continue antibiotics empirically. I think he stable enough to move to the floor today. (2) NSTEMI (non-ST elevated myocardial infarction): Current visit: Yes Status: Acute Hemodynamically stable, yesterday had what looks like 5 beat run of nonsustained VT without symptoms. He has not had any chest pain. His troponin has trended down. He continues on statin, aspirin, no beta-jas because of his severe COPD. Follow for symptoms on current regimen. (3) Pulmonary hypertension: Current visit: Yes Status: Acute Oxygen supplementation as above as well as manage of his COPD. Fluid status seems to be good and I do not think we need to add a diuretic at this time. (4) Cor pulmonale: Current visit: Yes Status: Acute Management as above. (5) Squamous cell lung cancer: Current visit: No Status: Acute Still having some right-sided chest discomfort after he swallows. This has been a chronic problem that may or may not be related to his lung cancer. Continue Celebrex and topical fentanyl and monitor symptoms. (6) High anion gap metabolic acidosis: Current visit: Yes Status: Acute This has resolved. Attributed to profound hypoxemia (7) Essential hypertension: Current visit: No Status: None Had been on lisinopril in the past, reports hypotension on 20 mg dose but no problems on 10 mg dose. His blood pressures been creeping up and I am resuming lisinopril at 10 mg. Monitor blood pressure response. Subjective Interval history since last seen: Mr. Ambrose overall is feeling better. He is far less short of breath moving around in the room. He still requires high flow oxygen to maintain oxygen saturations above 88%. He has not had a productive cough. He denies any chest pain. He has not been dizzy when he gets up. He reports that he continues to have discomfort that lasts 15 to 20 seconds, perceived in the right chest, anytime he swallows. This is been going on for months, not necessarily any worse during his hospitalization here. He is voiding well. He has had no melanotic stool and no recent problems with constipation or diarrhea. He is starting to feel little bored and anxious to get home. On telemetry yesterday had 5 beat nonsustained VT asymptomatic. His blood pressure has been creeping up. He informs me he has been on and off antihypertensive medications over the past several years. Most recently was on lisinopril at 10 mg but was stopped when his blood pressure consistently was below 140/90. Exam Narrative Exam Narrative: With high flow oxygen on he is in no acute respiratory distress and can speak in full sentences without pausing. He has been afebrile. Blood pressures as high as 180s over 100s, pulse rate in the 70s SaO2 on his high flow oxygen 92 to 98%. Neck veins are not distended seated upright. Lungs have distant breath sounds throughout, I do not hear any crackles wheeze or rub. His heart sounds are also quite distant, regular, no S3 or S4 heard. Abdomen soft with normal bowel sounds. Extremities warm no pitting edema. He is able to stand and walk in the room unassisted. Objective Objective Clinical Data: Abnormal lab results 05/24/19 05/24/19 Range/Units 06:50 06:50 WBC 12.08 H (4.4-10.8) k/cumm RBC 3.53 L (4.50-6.00) m/cumm Hgb 10.5 L (13.5-17.5) g/dL Hct 33.2 L (40.0-50.0) % MCHC 31.6 L (32.0-36.0) g/dL Absolute Neutrophils 11.48 H (1.2-6.7) k/cumm Absolute Lymphocytes 0.36 L (1.2-3.4) k/cumm Chloride 108 H (98-107) mmol/L BUN 20 H D (7-18) mg/dL Glucose 110 H (70-100) mg/dL Calcium 8.3 L (8.5-10.1) mg/dL Vital Signs Temperature 36.4 C L 05/24/19 07:57 Temperature Source Temporal Artery Scan 05/24/19 07:57 Pulse 75 05/24/19 10:19 Pulse 72 05/24/19 10:19 Respiratory Rate 17 05/24/19 10:19 Respiratory Effort 05/24/19 07:57 Respiratory Depth Normal 05/24/19 07:57 Respiratory Pattern Normal 05/24/19 07:57 Blood Pressure 147/98 H 05/24/19 10:19 Blood Pressure Mean 111 05/24/19 10:19 Blood Pressure Position Sitting 05/24/19 07:57 Pulse Oximetry 98 05/24/19 11:26 Oxygen Delivery Method Hi Flow Nasal Cannula 05/24/19 11:26 Oxygen Flow Rate 10 05/24/19 11:26 Fraction of Inspired Oxygen (FIO2) 39 05/24/19 08:56 Pain Level 0 05/24/19 12:00 Intake & Output 05/23/19 05/24/19 05/24/19 23:59 11:59 23:59 Intake Total 480 / 1136.4 400 / 400 Output Total 600 / 1950 2200 / 2200 Balance -120 / -813.6 -1800 / -1800 Weight 83.2 kg Intake: Oral 480 / 980 400 / 400 Output: Urine 600 / 1950 2200 / 2200 Other: Urine Color Light [place] Yellow Urine Appearance Clear Clear Urine Odor Normal None Comment Patient stands to void in urinal. Voiding Methods Urinal Laboratory Results WBC 12.08 k/cumm (4.4-10.8) H 05/24/19 06:50 RBC 3.53 m/cumm (4.50-6.00) L 05/24/19 06:50 Hgb 10.5 g/dL (13.5-17.5) L 05/24/19 06:50 Hct 33.2 % (40.0-50.0) L 05/24/19 06:50 MCV 94.1 fL (80-95) 05/24/19 06:50 MCH 29.7 pg (27.0-33.0) 05/24/19 06:50 MCHC 31.6 g/dL (32.0-36.0) L 05/24/19 06:50 RDW Not Applicable 05/24/19 06:50 Plt Count 252 x1000/uL (130-400) 05/24/19 06:50 MPV 10.6 fL (8.0-11.0) 05/24/19 06:50 Immature Gran % See Differential 05/24/19 06:50 95.0 05/24/19 06:50 4.0 % 05/23/19 06:25 3.0 05/24/19 06:50 2.0 05/24/19 06:50 0.0 05/24/19 06:50 0.0 05/24/19 06:50 1.0 % 05/23/19 06:25 Absolute Neutrophils 11.48 k/cumm (1.2-6.7) H 05/24/19 06:50 Absolute Lymphocytes 0.36 k/cumm (1.2-3.4) L 05/24/19 06:50 Absolute Monocytes 0.24 k/cumm (0.11-0.7) 05/24/19 06:50 Absolute Eosinophils 0.00 k/cumm (0.0-0.7) 05/24/19 06:50 Absolute Basophils 0.00 k/cumm (0.0-0.2) 05/24/19 06:50 Manual differential 05/24/19 06:50 RBC Morphology See below 05/24/19 06:50 Present 05/24/19 06:50 2+ 05/24/19 06:50 2+ 05/24/19 06:50 2+ 05/24/19 06:50 1+ 05/24/19 06:50 3+ 05/23/19 06:25 1+ 05/22/19 05:45 2+ 05/24/19 06:50 1+ 05/24/19 06:50 PT 11.6 sec (9.3-11.0) H 05/20/19 10:12 INR 1.2 (0.9-1.1) H 05/20/19 10:12 APTT 50.3 sec (21.0-31.4) H D 05/23/19 08:58 Sample Site Right radial 05/22/19 10:50 pCO2 31 mmHg (34-47) L 05/22/19 10:50 pO2 62 mmHg (83-108) L 05/22/19 10:50 O2 Saturation 92 % (94-98) L 05/22/19 10:50 ABG pH 7.45 (7.35-7.45) 05/22/19 10:50 ABG HCO3 22 mmol/L (22-28) 05/22/19 10:50 ABG Total CO2 20 mmol/L (22-29) L 05/22/19 10:50 ABG Base Excess -2.5 mmol/L (-3-3) 05/22/19 10:50 Oxygen Liter Flow Cancelled 05/21/19 05:35 Cancelled 05/21/19 05:35 Sodium 144 mmol/L (136-145) 05/24/19 06:50 Potassium 3.9 mmol/L (3.5-5.1) 05/24/19 06:50 Chloride 108 mmol/L (98-107) H 05/24/19 06:50 Carbon Dioxide 26.4 mmol/L (21.0-32.0) 05/24/19 06:50 9.6 mmol/L (3-11) 05/24/19 06:50 BUN 20 mg/dL (7-18) H D 05/24/19 06:50 0.88 mg/dL (0.70-1.30) 05/24/19 06:50 >= 60.00 (mL/min/1.73m2) 05/24/19 06:50 Glucose 110 mg/dL (70-100) H 05/24/19 06:50 1.7 mmol/L (0.6-1.4) H 05/23/19 06:25 Calcium 8.3 mg/dL (8.5-10.1) L 05/24/19 06:50 Magnesium 2.1 mg/dL (1.8-2.4) 05/24/19 06:50 0.9 mg/dL (0.2-1.0) 05/20/19 10:12 AST 32 U/L (15-37) 05/20/19 10:12 ALT 35 U/L (16-63) 05/20/19 10:12 103 U/L (46-116) 05/20/19 10:12 0.59 ng/mL (0.00-0.06) H* 05/23/19 06:25 NT-Pro-B Natriuret Pep 8781 pg/mL (-299) H 05/20/19 10:12 6.6 g/dL (6.4-8.2) 05/20/19 10:12 2.9 g/dL (3.4-5.0) L 05/20/19 10:12 Talia (Yellow) 05/20/19 14:19 Clear (Clear) 05/20/19 14:19 5.5 (5-8) 05/20/19 14:19 Ur Specific [place] 1.015 (1.005-1.025) 05/20/19 14:19 Trace mg/dL (Negative) H 05/20/19 14:19 15 mg/dL (Negative) H 05/20/19 14:19 Negative (Negative) 05/20/19 14:19 Negative (Negative) 05/20/19 14:19 Negative (Negative) 05/20/19 14:19 1.0 EU/dL (Up TO 0.2) H 05/20/19 14:19 Ur Leukocyte Esterase Negative (Negative) 05/20/19 14:19 Negative (0-2) 05/20/19 14:19 0-2 HPF (0-5) 05/20/19 14:19 Ur Epithelial Cells Rare HPF (Negative) 05/20/19 14:19 Negative HPF (Negative) 05/20/19 14:19 Rare HPF (Negative) 05/20/19 14:19 Comment LPF (Negative) 05/20/19 14:19 Moderate (Negative) 05/20/19 14:19 Ur Culture Indicated? No 05/20/19 14:19 Negative mg/dL (Negative) 05/20/19 14:19
[2019-05-24] MEDS: Enoxaparin 40 MG/0.4 ML SYR SC (13:18)
[2019-05-24] MEDS: cefTRIAXone 2 GM/50 ML BAG IVPB (13:20)
--- NOTE | 2019-05-24 14:20 | NUR.NOTE ---
Nursing Note: Patient transferred from ICU to med/surg at 1202 05/24/19 via ambulation. Patient HR regular. Apical heart rate 78. Lungs clear and diminished throughout. Normal bowel sounds in all quadrants. Patient denies pain at this time. Positive pedal and radial pulses bilaterally. Patient sitting in chair with O2 at 7 L/min. Bruising on bilateral upper extremities noted. Patient alert and oriented x 3.
[2019-05-24] MEDS: Atorvastatin 40 MG TAB 80 MG PO (21:03)
[2019-05-24] MEDS: traZODone 100 MG TAB PO (21:04)
[2019-05-25] VITALS (13 sets, daily range): BP systolic 149–161; BP diastolic 91–107; PULSE 74–115; RESP 1–19; TEMP 36.3–36.7; O2SAT 74–97
[2019-05-25] MEDS: Albuterol/Ipratropium 3 ML UPD VIAL UPD ×5 (00:29→19:43)
[2019-05-25] MEDS: methylPREDNISolone SUCC 125 MG VIAL 40 MG IVP (04:35)
[2019-05-25] MEDS: Normal Saline Flush 10 ML SYR IVP ×3 (04:35→19:44)
[2019-05-25] MEDS: Acetaminophen 500 MG TAB 1000 MG PO ×3 (07:54→19:40)
[2019-05-25] MEDS: Gabapentin 300 MG CAP 900 MG PO ×2 (07:55→19:39)
[2019-05-25] MEDS: Celecoxib 200 MG CAP PO ×2 (07:55→19:39)
[2019-05-25] MEDS: Aspirin E.C. 81 MG TABEC PO (07:56)
[2019-05-25] MEDS: Baclofen 10 MG TAB PO ×2 (07:56→19:41)
--- NOTE | 2019-05-25 08:01 | PDOC.CMPRO ---
Care Management Progress Note S/O: Simone was sitting up in his chair, his SO Josie at his side. He reviewed his progress over the last 48hours and shared confidence in returning home tomorrow. Josie reported Simone's oxygen stats dropped during his pulse ox with [facility] today which concerned her. CM reviewed discharge plan including VNA supports of which Simone reported to being agreeable to at this time. He shared that he was looking forward to sleeping in his own bed and seeing his cat Baljinder. CM continues to follow. A: Simone is a 68 year old male admitted to [facility] on 05/20/19 with COPD exacerbation P; Simone continues to be closely monitored while receiving care for COPD. He will follow up with his PCP as well as his oncology providers at [facility] [place]. Anticipate Simone will likely be discharged home with new VNA services: OT/PT/RN/TECHNICAL SOLUTIONS DIRECTOR. CM will continue to provide support to patient, family and discharge needs.
[2019-05-25] MEDS: predniSONE 20 MG TAB 40 MG PO ×2 (08:05→19:41)
[2019-05-25] MEDS: Sertraline 50 MG TAB 200 MG PO (08:05)
[2019-05-25] MEDS: Lisinopril 10 MG TAB PO (08:06)
[2019-05-25] MEDS: Budesonide 0.5 MG/2 ML UPD VIAL UPD ×2 (08:16→18:10)
--- NOTE | 2019-05-25 10:29 | W.PM.PROGNOT ---
Date of Service Date of service: 05/25/19 Time of Service: 08:20 Assessment and Plan (1) COPD (chronic obstructive pulmonary disease): Current visit: Yes Status: Chronic Improving although still with O2 requirement, particularly with exertion. It seems like he is approaching his baseline. I am transitioning him to oral steroids with a plan for a slow outpatient taper. Continue his current inhaler regimen. 1 more day with antibiotics to complete 5 days of parenteral treatment. Given that there has not been an obvious infectious trigger, although I suspect this may be part, if not substantial, reason for his exacerbation, I think 5 days of antibiotic treatment will be sufficient. (2) NSTEMI (non-ST elevated myocardial infarction): Current visit: Yes Status: Acute He has not had any chest pains. Occasional PVCs on telemetry only. Relative contraindication to beta-jas with his severe lung disease. I think this is probably demand ischemia on a background of coronary artery disease. And formal cardiology consultation tomorrow to assess whether or not further ischemic work-up is warranted. Continue aspirin and statin (3) Pulmonary hypertension: Current visit: Yes Status: Acute Oxygen supplementation as above as well as manage of his COPD. Fluid status seems to be good and I do not think we need to add a diuretic at this time. (4) Cor pulmonale: Current visit: Yes Status: Acute Management as above. (5) Squamous cell lung cancer: Current visit: No Status: Acute No pain complaints today. Current pain management seems adequate. (6) Essential hypertension: Current visit: No Status: None Blood pressure still a bit high. Continue lisinopril at current dose and taper steroids which may be contributing to his high blood pressure. In the past he reports hypotensive symptoms on higher dose lisinopril. Subjective Interval history since last seen: Feels well, anxious to go home. He did not require high flow oxygen overnight and maintain oxygen saturations at rest with nasal cannula between 6 and 8 L/min. He did desaturate with exertion this morning with walking, into the 70s. No productive cough. Denies pain anywhere. Appetite improved. Voiding and stooling without problems. I reviewed his medicine list that his has available and he had been weaned off dexamethasone prior to his hospitalization and had just recently, within the past week prior to admission, obtained budesonide and DuoNeb for home nebulizer as apparently he was not able to manipulate metered-dose inhalers or dry powder inhalers. Exam Narrative Exam Narrative: He is in good spirits. He remains afebrile. Blood pressures have ranged from 140s to 160s 90s over 100s diastolic. Pulse rates in the 70s. His weight has been fairly stable around 83 kg. Talkative, no respiratory distress doing so with oxygen at 4 L. Seated upright neck veins are flat. Lungs distant breath sounds no wheeze or crackles or rub heard anywhere. Heart tones soft regular do not hear any rub S3 or S4. Normal bowel sounds, abdomen nontender. No ankle edema. Objective Objective Clinical Data: Vital Signs Temperature 36.5 C 05/25/19 07:36 Temperature Source Tympanic 05/25/19 07:36 Pulse 77 05/25/19 08:00 Pulse Rhythm Regular 05/25/19 07:35 Pulse 72 05/24/19 10:19 Respiratory Rate 19 05/25/19 07:36 Respiratory Effort Non-Labored 05/25/19 07:35 Respiratory Depth Normal 05/25/19 07:35 Respiratory Pattern Normal 05/25/19 07:35 Blood Pressure 161/107 H 05/25/19 07:36 Blood Pressure Mean 111 05/24/19 10:19 Blood Pressure Position Sitting 05/24/19 07:57 Pulse Oximetry 97 05/25/19 07:36 Oxygen Delivery Method Nasal Cannula 05/25/19 07:36 Oxygen Flow Rate 7 05/25/19 07:36 Fraction of Inspired Oxygen (FIO2) 39 05/24/19 08:56 Pain Level 0 05/25/19 07:54 Intake & Output 05/24/19 05/24/19 05/25/19 11:59 23:59 11:59 Intake Total 400 / 470 70 / 470 210 / 210 Output Total 2200 / 2200 Balance -1800 / -1730 70 / -1730 210 / 210 Weight 83.2 kg 83.6 kg Intake: IV 70 / 70 10 / 10 Oral 400 / 400 200 / 200 Output: Urine 2200 / 2200 Other: Urine Color Yellow Pale Urine Appearance Clear Clear Clear Urine Odor None None Comment Pt voiding ad marcella. Pt has been up to void several times throughout the night. Pt denies discomfort. Voiding Methods Urinal Toilet Laboratory Results WBC 12.08 k/cumm (4.4-10.8) H 05/24/19 06:50 RBC 3.53 m/cumm (4.50-6.00) L 05/24/19 06:50 Hgb 10.5 g/dL (13.5-17.5) L 05/24/19 06:50 Hct 33.2 % (40.0-50.0) L 05/24/19 06:50 MCV 94.1 fL (80-95) 05/24/19 06:50 MCH 29.7 pg (27.0-33.0) 05/24/19 06:50 MCHC 31.6 g/dL (32.0-36.0) L 05/24/19 06:50 RDW Not Applicable 05/24/19 06:50 Plt Count 252 x1000/uL (130-400) 05/24/19 06:50 MPV 10.6 fL (8.0-11.0) 05/24/19 06:50 Immature Gran % See Differential 05/24/19 06:50 95.0 05/24/19 06:50 4.0 % 05/23/19 06:25 3.0 05/24/19 06:50 2.0 05/24/19 06:50 0.0 05/24/19 06:50 0.0 05/24/19 06:50 1.0 % 05/23/19 06:25 Absolute Neutrophils 11.48 k/cumm (1.2-6.7) H 05/24/19 06:50 Absolute Lymphocytes 0.36 k/cumm (1.2-3.4) L 05/24/19 06:50 Absolute Monocytes 0.24 k/cumm (0.11-0.7) 05/24/19 06:50 Absolute Eosinophils 0.00 k/cumm (0.0-0.7) 05/24/19 06:50 Absolute Basophils 0.00 k/cumm (0.0-0.2) 05/24/19 06:50 Manual differential 05/24/19 06:50 RBC Morphology See below 05/24/19 06:50 Present 05/24/19 06:50 2+ 05/24/19 06:50 2+ 05/24/19 06:50 2+ 05/24/19 06:50 1+ 05/24/19 06:50 3+ 05/23/19 06:25 1+ 05/22/19 05:45 2+ 05/24/19 06:50 1+ 05/24/19 06:50 PT 11.6 sec (9.3-11.0) H 05/20/19 10:12 INR 1.2 (0.9-1.1) H 05/20/19 10:12 APTT 50.3 sec (21.0-31.4) H D 05/23/19 08:58 Sample Site Right radial 05/22/19 10:50 pCO2 31 mmHg (34-47) L 05/22/19 10:50 pO2 62 mmHg (83-108) L 05/22/19 10:50 O2 Saturation 92 % (94-98) L 05/22/19 10:50 ABG pH 7.45 (7.35-7.45) 05/22/19 10:50 ABG HCO3 22 mmol/L (22-28) 05/22/19 10:50 ABG Total CO2 20 mmol/L (22-29) L 05/22/19 10:50 ABG Base Excess -2.5 mmol/L (-3-3) 05/22/19 10:50 Oxygen Liter Flow Cancelled 05/21/19 05:35 Cancelled 05/21/19 05:35 Sodium 144 mmol/L (136-145) 05/24/19 06:50 Potassium 3.9 mmol/L (3.5-5.1) 05/24/19 06:50 Chloride 108 mmol/L (98-107) H 05/24/19 06:50 Carbon Dioxide 26.4 mmol/L (21.0-32.0) 05/24/19 06:50 9.6 mmol/L (3-11) 05/24/19 06:50 BUN 20 mg/dL (7-18) H D 05/24/19 06:50 0.88 mg/dL (0.70-1.30) 05/24/19 06:50 >= 60.00 (mL/min/1.73m2) 05/24/19 06:50 Glucose 110 mg/dL (70-100) H 05/24/19 06:50 1.7 mmol/L (0.6-1.4) H 05/23/19 06:25 Calcium 8.3 mg/dL (8.5-10.1) L 05/24/19 06:50 Magnesium 2.1 mg/dL (1.8-2.4) 05/24/19 06:50 0.9 mg/dL (0.2-1.0) 05/20/19 10:12 AST 32 U/L (15-37) 05/20/19 10:12 ALT 35 U/L (16-63) 05/20/19 10:12 103 U/L (46-116) 05/20/19 10:12 0.59 ng/mL (0.00-0.06) H* 05/23/19 06:25 NT-Pro-B Natriuret Pep 8781 pg/mL (-299) H 05/20/19 10:12 6.6 g/dL (6.4-8.2) 05/20/19 10:12 2.9 g/dL (3.4-5.0) L 05/20/19 10:12 Talia (Yellow) 05/20/19 14:19 Clear (Clear) 05/20/19 14:19 5.5 (5-8) 05/20/19 14:19 Ur Specific [place] 1.015 (1.005-1.025) 05/20/19 14:19 Trace mg/dL (Negative) H 05/20/19 14:19 15 mg/dL (Negative) H 05/20/19 14:19 Negative (Negative) 05/20/19 14:19 Negative (Negative) 05/20/19 14:19 Negative (Negative) 05/20/19 14:19 1.0 EU/dL (Up TO 0.2) H 05/20/19 14:19 Ur Leukocyte Esterase Negative (Negative) 05/20/19 14:19 Negative (0-2) 05/20/19 14:19 0-2 HPF (0-5) 05/20/19 14:19 Ur Epithelial Cells Rare HPF (Negative) 05/20/19 14:19 Negative HPF (Negative) 05/20/19 14:19 Rare HPF (Negative) 05/20/19 14:19 Comment LPF (Negative) 05/20/19 14:19 Moderate (Negative) 05/20/19 14:19 Ur Culture Indicated? No 05/20/19 14:19 Negative mg/dL (Negative) 05/20/19 14:19
[2019-05-25] MEDS: cefTRIAXone 2 GM/50 ML BAG IVPB (13:26)
[2019-05-25] MEDS: Enoxaparin 40 MG/0.4 ML SYR SC (13:48)
[2019-05-25] MEDS: traZODone 100 MG TAB PO (19:41)
[2019-05-25] MEDS: Atorvastatin 40 MG TAB 80 MG PO (19:42)
[2019-05-26 07:17] VITALS: BP 151/89; PULSE 74; RESP 17; TEMP 36.3; O2SAT 95
[2019-05-26 08:29] VITALS: PULSE 71; RESP 16; RESP 8; O2SAT 95
[2019-05-26] MEDS: Albuterol/Ipratropium 3 ML UPD VIAL UPD ×2 (08:29→11:18)
[2019-05-26 08:38] VITALS: PULSE 69; RESP 1; RESP 16; RESP 8; O2SAT 97
[2019-05-26] MEDS: fentaNYL 25 MCG PATCH TD (09:00)
[2019-05-26] MEDS: predniSONE 20 MG TAB 60 MG PO (09:01)
[2019-05-26] MEDS: Baclofen 10 MG TAB PO (09:01)
[2019-05-26] MEDS: Acetaminophen 500 MG TAB 1000 MG PO (09:01)
[2019-05-26] MEDS: Sertraline 50 MG TAB 200 MG PO (09:01)
[2019-05-26] MEDS: Lisinopril 10 MG TAB PO (09:01)
[2019-05-26] MEDS: Gabapentin 300 MG CAP 900 MG PO (09:01)
[2019-05-26] MEDS: Celecoxib 200 MG CAP PO (09:01)
[2019-05-26] MEDS: Aspirin E.C. 81 MG TABEC PO (09:01)
[2019-05-26] MEDS: Patch Removal 1 EACH TP (09:02)
[2019-05-26] MEDS: Budesonide 0.5 MG/2 ML UPD VIAL UPD (09:20)
--- NOTE | 2019-05-26 11:03 | HHF2F_ITS ---
1. Encounter Date and Reason I certify that JOSE BISHOP was seen by Jose David Manzo on 05/26/19 and that I had a [id number] encounter with this patient that meets the physician face to face encounter requirements. 2. Clinical Findings Supporting Skilled Need and Homebound Status I certify that home health services are medically necessary, include either intermittent intermediate and/or physical/speech therapy, and that this patient is homebound in that absences from the home require considerable and taxing effort and are infrequent or of short duration, or are attributable to the need to receive medical care. [X] (a) Attached documentation from encounter provides clinical findings supporting skilled need and homebound status (including what assistance patient requires to leave the home). The encounter with the patient was in whole, or in part, for the following medical condition, which is the primary reason for home health care: COPD EXACERBATION Chcf: To assess pulmonary status, medication adherence, medication side effects Physical Therapy: To improve in-home mobility and safe transfers, reduce fall risk Speech Therapy: Homebound: Multiple chronic medical problems and severe COPD leave him homebound. 3. Certification and Authentication I certify that I composed the above information based on my clinical judgement relating to this patient's medical condition and, if applicable, clinical findings communicated to me by the NPP or inpatient physician who performed the Home Health Referral. All further orders will be obtained through Dr. Beckham (Community Based Physician - PCP)
--- NOTE | 2019-05-26 11:04 | W.PM.DS.N ---
Date of service: 05/26/19 Time of Service: 08:30 DS: Diagnosis Discharge Diagnosis (1) COPD (chronic obstructive pulmonary disease): Status: Chronic Asessment and Plan: Profound hypoxemia on presentation but with respiratory compensation and absence of ventilatory failure. BiPAP support successful in improving his oxygenation, coadministered with parenteral steroids and empiric antibiotics. Steady improvement in his respiratory status and oxygenation throughout hospitalization and by the day of discharge comfortable at rest, SaO2 in the mid 90% range on 3 to 4 L/min nasal cannula but desaturating into the high 70% range with ambulation on 8 L. He will be discharged on a slowly tapering course of prednisone. He completed 5 days of antibiotics in the hospital. He will continue his home neb treatments with budesonide (despite his complaints that he thinks it gives him a headache) and ipratropium/albuterol. He has expressed a desire to participate in pulmonary rehab and the referral has been initiated. (2) NSTEMI (non-ST elevated myocardial infarction): Status: Acute Asessment and Plan: No anginal type chest pains, no acute ischemic changes on ECG, no impairment of LV function and no regional wall motion abnormalities of the LV on echocardiogram (although it did show significant impairment of RV function) with troponin on presentation of 0.06 promptly going to 2.13 and steadily falling thereafter. He had no dysrhythmias. He never had any anginal chest pains. He was anticoagulated with heparin for 48 hours. He was maintained on his usual aspirin and statin. Beta-blockers were not started because of his severe lung disease. Further ischemic work-up was not initiated during this hospitalization and the decision as to whether or not to pursue this is deferred to Dr. Beckham. (3) Pulmonary hypertension: Status: Acute Asessment and Plan: Echocardiogram performed during this hospitalization showed severely dilated right atrium, severely dilated right ventricle with evidence of decreased systolic function, pulmonary artery pressure estimated of 60 to 70 mm with no indication of LV systolic dysfunction, some parameters suggestive of diastolic dysfunction. He did not manifest fluid overload during his hospitalization and was not placed on any diuretics. Oxygen treatment as noted above. Treatment of his COPD as noted above. (4) Squamous cell lung cancer: Status: Acute Asessment and Plan: His pain from his metastatic squamous cell lung cancer and sternal pathologic fracture was adequately managed with his outpatient dose of fentanyl and Celebrex. (5) Essential hypertension: Status: None Asessment and Plan: Initially his blood pressure was in the low normal range but steadily carlyn. He he was started back on lisinopril, which he had been on the past at 20 mg a day but stopped because of symptomatic low blood pressure. His blood pressure was not well controlled on the 10 mg lisinopril dose but I was uncomfortable pushing the dose higher in the setting of high steroid use and his history of symptomatic orthostasis. His blood pressure will need to be followed as an outpatient and likely adjustments in medication made. (6) High anion gap metabolic acidosis: Status: Acute Asessment and Plan: He had an anion gap metabolic acidosis with respiratory compensation on presentation attributed to his profound hypoxemia. This resolved with improvement in his oxygenation and did not recur. (7) Depressive disorder: Status: Acute Asessment and Plan: There was no exacerbation of his depression during this hospitalization on his outpatient medications. Discharge Plan Disposition Patient Disposition: HOME W/HOME HEALTH SERVICE Condition: Stable Discharge Details Chief Complaint: SOB Clinical Impression: Chronic obstructive lung disease, Low O2 saturation Reason For Visit: COPD EXACERBATION Admit Date/Time: 05/20/19 11:38 Admit Provider: Umair Dyer Attending Provider: Umair Dyer Primary Care Provider: Malka Sandhu ED Provider: Quique Reyez Hospital Course Hospital Course: 68-year-old man with severe COPD on home oxygen, known to have desaturations with exertion (stable on 2 L, still desaturates on 7 with activity), right upper lobe non-small cell lung cancer with metastatic disease to sternum with pathologic fracture, pleural mets on chemo and radiation therapy, heterozygosity for alpha antitrypsin deficiency, CAD with a drug-eluting stent to the LAD in 2016, hypertension, depression and GERD presented to the emergency room with increasing shortness of breath. He was found to have profound hypoxemia despite oxygen supplementation, moderate wheezing and he was admitted to the ICU for further management. Hospital course as outlined by the diagnoses above. Diagnostic studies in addition to above: Chest CT for pulmonary embolism negative for PE, pathologic fracture of the sternum, decrease in the size of the right upper lobe mass adjacent to the sternum, no rib fractures, decreased right hilar adenopathy. No changes were made to his chronic medication. Lisinopril has been added to his medication. He is being discharged on a tapering dose of prednisone. Home health services have been requested and referral made for pulmonary rehabilitation. Home Meds and New Rx's Prescriptions: New lisinopril 10 mg Tablet 10 mg PO DAILY Qty: 90 RF: 3 prednisone 10 mg tablet 10 mg PO DAILY Qty: 50 RF: 0 Continued prochlorperazine maleate [Compazine] 10 mg tablet 10 mg PO Q6H PRN RF: 0 celecoxib 200 mg capsule 200 mg PO BID Qty: 60 RF: 6 acetaminophen 500 mg tablet 1,000 mg PO TID RF: 0 fentanyl 25 mcg/hr patch 72 hour 1 patch TD Q72H MDD 1 Qty: 10 RF: 0 lorazepam 1 mg tablet 1 mg PO Q4H MDD 4 PRN (Reason: dyspnea) Qty: 90 RF: 4 ranitidine HCl [Zantac Maximum Strength] 150 mg tablet 150 mg PO BID PRNRF: 0 sertraline 100 mg tablet 200 mg PO DAILY Qty: 180 RF: 4 ASPIRIN 81 MG tablet 1 tab PO DAILY RF: 0 albuterol sulfate [ProAir HFA] 8.5 GM HFA aerosol inhaler 1 - 2 puff Inhalation QID PRNQty: 2 RF: 6 trazodone 100 mg tablet 100 mg PO DAILY Qty: 90 RF: 4 baclofen 10 mg tablet 10 mg PO BID Qty: 180 RF: 3 atorvastatin 80 mg tablet 80 mg PO DAILY Qty: 90 RF: 4 gabapentin 300 mg capsule 900 mg PO BID Qty: 540 RF: 5 ipratropium-albuterol 0.5 mg-3 mg(2.5 mg base)/3 mL Solution For Nebulization 3 ml INHALATION QID RF: 0 budesonide 0.5 mg/2 mL Suspension For Nebulization 0.5 mg INHALATION DAILY RF: 0 No Action (DME) Oxygen Tank See Rx Instructions .ROUTE .MEDSUPPLY Qty: 1 RF: 0 nitroglycerin 0.4 MG tablet, sublingual 0.4 mg Sublingual Q6H PRN PRNQty: 25 RF: 0 Discharge Instructions Instructions: Chronic Lung Disease and Infection Prevention (DC) Additional Instructions: Call your doctor or return to the hospital if you develop worsening shortness of breath, fever or chest pain. Resume your oxygen 2-8 L/min as needed to keep your oxygen saturation at or above 89% (ideally above 90%). Referrals: Gia Beckham MD, [facility] [, [facility]] - (Keep the appointment you have for 05/27/2019) Activity:: Activity as Tolerated Equipment/Supplies:: Oxygen (L/min Below) Diet:: As Tolerated Discharge Orders Discharge Orders: Discharge Order (Routine); Ordered 05/26/19 Ordered By: Jose David Manzo Exam Narrative Exam Narrative: On the morning of discharge he is comfortable on 4 L nasal cannula with SaO2 98%. No use of accessory muscles of respiration. Speaks in full sentences. His lungs have distant breath sounds, no wheezing, no crackles heard. Heart rhythm regular without S3 or S4 noted. He has no peripheral edema. His weight is 84 kg. DS: Data Vitals/I&O Vitals and I&O: Vital Signs Temperature 36.3 C L 05/26/19 07:17 Temperature Source Tympanic 05/26/19 07:17 Pulse 69 05/26/19 08:38 Pulse Rhythm Regular 05/26/19 05:20 Pulse 72 05/24/19 10:19 Respiratory Rate 16 05/26/19 08:38 Respiratory Effort Non-Labored 05/26/19 05:20 Respiratory Depth Normal 05/26/19 05:20 Respiratory Pattern Normal 05/26/19 05:20 Blood Pressure 151/89 H 05/26/19 07:17 Blood Pressure Mean 111 05/24/19 10:19 Blood Pressure Position Sitting 05/24/19 07:57 Pulse Oximetry 97 05/26/19 08:38 Oxygen Delivery Method Nasal Cannula 05/26/19 08:29 Oxygen Flow Rate 4 05/26/19 08:31 Fraction of Inspired Oxygen (FIO2) 39 05/24/19 08:56 Pain Level 0 05/26/19 09:01 Intake & Output 05/25/19 05/25/19 05/26/19 11:59 23:59 11:59 Intake Total 210 / 1460 1250 / 1460 240 / 240 Balance 210 / 1460 1250 / 1460 240 / 240 Weight 83.6 kg 84 kg Intake: IV 10 70 / 80 Oral 200 / 1380 1180 / 1380 240 / 240 Other: Urine Color Pale Pale Urine Appearance Clear Clear Clear Urine Odor None None Comment Pt voiding ad marcella. Pt has been up to void several times throughout the night. Pt denies discomfort. Pt up to toilet to void ad marcella Stool Size Moderate Stool Characteristics Soft Formed Voiding Methods Toilet Toilet PFS Medical History Chronic low back pain COPD (chronic obstructive pulmonary disease) Essential hypertension GERD (gastroesophageal reflux disease) MEGAN on CPAP Family History Daughter No problems noted. Son No problems noted. Mother Aneurysm Father Aortic aneurysm Social History Smoking/Tobacco Use Status: Former Tobacco Use Quit Date: 09/17/17 Drug use: Never Household members: significant other Housing: house Pets and animals: Yes ([facility]) Pets and animals: cat(s) Do you feel safe in your relationship?: Yes
[2019-05-26 11:18] VITALS: PULSE 73; RESP 16; RESP 8; O2SAT 96
[2019-05-26 11:27] VITALS: PULSE 71; RESP 1; RESP 12; RESP 8; O2SAT 98
--- NOTE | 2019-05-26 17:13 | PDOC.CMDIS ---
- If Service Date Differs Date of service: 05/26/19 Time of Service: 17:13 LACE Index Scoring Tool - Questions: Length of Stay (in days): 4 - 6 Acuity (Admit via E.D.?): Yes Comorbidities: Chronic Pulmonary Disease, Metastatic Solid Tumor E.D. Visits: 2 - Answers: Total Score: 14 Risk of Readmission: High Risk Care Management Discharge Reason for Hospitalization: COPD Discharge Plan: Simone will be discharged home with new HH services of RN, OT,PT and ZOOLOGY TEACHER. He will transport via private vehicle with girlfriend Josie. Simone will follow up with his PCP and Oncologist and discharge plan of care. Patient/Family Education Needs: Discharge plan, limitations, follow up plan and Ask Me Three.
== END 2019-05-26 13:01 | disposition home health service (06) | DRG 190 ==
LOC: ER 12:16 → ICU 14:56 → MS 05-26 11:22 → ICU 06-01 11:29
PROVIDERS: Internal Medicine; Admitting Provider Internal Medicine; Emergency Provider Emergency Medicine; PCP Family Medicine; Visit Provider Internal Medicine
DX: J44.1 Chronic obstructive pulmonary disease with (acute) exacerbation (principal); I21.A1 Myocardial infarction type 2; C34.11 Malignant neoplasm of upper lobe, right bronchus or lung; C78.2 Secondary malignant neoplasm of pleura; E87.2 Acidosis; E87.3 Alkalosis; R09.02 Hypoxemia; Z99.81 Dependence on supplemental oxygen; I50.814 Right heart failure due to left heart failure; Z79.899 Other long term (current) drug therapy; E88.01 Alpha-1-antitrypsin deficiency; I11.0 Hypertensive heart disease with heart failure; I25.10 Atherosclerotic heart disease of native coronary artery without angina pectoris; G89.3 Neoplasm related pain (acute) (chronic); Z79.891 Long term (current) use of opiate analgesic; G47.33 Obstructive sleep apnea (adult) (pediatric); I08.1 Rheumatic disorders of both mitral and tricuspid valves; I27.81 Cor pulmonale (chronic); M84.48XD Pathological fracture, other site, subsequent encounter for fracture with routine healing; Z23 Encounter for immunization; F32.9 Major depressive disorder, single episode, unspecified; E78.5 Hyperlipidemia, unspecified; Z87.891 Personal history of nicotine dependence
CPT/HCPCS: 36415; 71275; 80048; 80053; 82805; 93005; 93306; 94640; 96361; 96365; 99223; 99232; 99233; 99239; 99254; 99285; J1650; 36600; 81003; 81015; 83605; 83735; 83880; 84484; 85025; 85610; 85730; 93010; 94010; J2270; J2405; J2930; J3490; J7512; J7614; J7620; J7626

== ENCOUNTER 2019-06-12 02:14 | Outpatient (RCR) | payer MEDICARE, SELFPAY ==
[2019-06-12 08:17] LABS: Abs Immature Grans 0.09 k/cumm (0.0-0.09); Absolute Basophil Count 0.03 k/cumm (0.0-0.2); Absolute Eosinophil Count 0.28 k/cumm (0.0-0.7); Absolute Lymphocyte Count 0.72 k/cumm (1.2-3.4); Absolute Monocyte Count 0.49 k/cumm (0.11-0.7); Basophils % 0.2; Eosinophils % 2.2; HCT 41.3 % (40.0-50.0); HGB 13.4 g/dL (13.5-17.5); Immature Grans % 0.7; Lymphocytes % 5.7; Mean Corp. HGB Concentration 32.4 g/dL (32.0-36.0); Mean Corpuscular Volume 98.6 fL (80-95); Mean Platelet Volume 10.1 fL (8.0-11.0); Monocytes % 3.9; Neutrophils % 87.3; Platelet Count 144 x1000/uL (130-400); RBC 4.19 m/cumm (4.50-6.00); RBC Distribution Width 24.2 % (11.8-14.1); White Blood Cell Count 12.63 k/cumm (4.4-10.8)
[2019-06-12 08:20] LABS: Absolute Neutrophil Count 11.03 k/cumm (1.2-6.7)
[2019-06-12 08:43] LABS: ALT 24 U/L (16-63); AST 18 U/L (15-37); Alkaline Phosphatase 106 U/L (46-116); BUN 26 mg/dL (7-18); Bilirubin, Total 0.6 mg/dL (0.2-1.0); CREATININE 1.08 mg/dL (0.70-1.30); Calcium 8.4 mg/dL (8.5-10.1); Chloride 111 mmol/L (98-107); Glucose 103 mg/dL (70-100); Potassium 3.5 mmol/L (3.5-5.1); Sodium 144 mmol/L (136-145); TSH 4.13 uIU/mL (0.36-3.74); Total Protein 6.6 g/dL (6.4-8.2)
[2019-06-12] MEDS: Normal Saline Flush 10 ML SYR IVP (08:47)
[2019-06-12 16:07] LABS: FREE T4 0.86 ng/dL (0.76-1.46); LDH 271 U/L (85-227)
== END 2019-06-16 23:59 | disposition home or self-care (01) ==
LOC: INF 02:14
PROVIDERS: PCP Family Medicine; Visit Provider Registered Nurse Oncology
DX: C34.11 Malignant neoplasm of upper lobe, right bronchus or lung (principal); Z45.2 Encounter for adjustment and management of vascular access device; E03.2 Hypothyroidism due to medicaments and other exogenous substances
CPT/HCPCS: 36591; 80053; 83615; 84439; 84443; 85025

== ENCOUNTER 2019-06-13 08:08 | Inpatient (IN) | payer MEDICARE, SELFPAY ==
[2019-06-13] VITALS (96 sets, daily range): BP systolic 82–145; BP diastolic 13–102; PULSE 67–149; RESP 4–47; TEMP 30–37.1; O2SAT 74–98
[2019-06-13] MEDS: MAGNESIUM SULFATE 2 GM/50 ML BAG IVPB (08:11)
--- NOTE | 2019-06-13 08:13 | ED.GENADUL_ITS ---
Discharge Plan Disposition Patient Disposition: [facility] INPATIENT Condition: Stable Discharge Details Chief Complaint: RespSymp Clinical Impression: Acute exacerbation of chronic obstructive pulmonary disease (COPD) Admit Date/Time: 06/13/19 10:37 Admit Provider: Daniela Ashley Attending Provider: Daniela Ashley Primary Care Provider: Malka Sandhu ED Provider: Deep Whitaker Discharge Data Discharge Date/Time-TO BE ENTERED AT DEPARTURE: 06/13/19 11:12 Medical Decision Making 68-year-old male with end-stage COPD, lung cancer, presents from home with 2 days of escalating shortness of breath with increased oxygen from 4 L to 10 L. He was found to have a 70% room air by EMS, improved with placement of positive end expiratory pressure on route. He did receive DuoNeb therapy en route. In addition to his oxygen dependent COPD has right lung squamous cell carcinoma with metastases. He is receiving posttreatment immunotherapy with durvalumab. He had a left chest anterior port placed this week. He is DNR/DNI but would like parenteral medications, hospital admissions. Dr. Beckham is his regular doctor. He was admitted 05/20-05/26 for COPD exacerbation. During that hospitalization he had an echocardiogram with severely dilated right atrium & right ventricle with evidence of decreased systolic function, PA pressure 60 to 70 mm, with no indication of LV systolic dysfunction, and no manifestations of fluid overload during hospitalization. He arrives with a pulse of 134, blood pressure 109/77, breathing in the high 30s with an 85% sat on 10 L of oxygen. IV access established, patient given parenteral steroid, magnesium, additional DuoNeb and transitioned to BiPAP: 14/5, 60%. ABG: pH 7.4, PCO2 29, PO2 144 on 60%. Chest x-ray not significant change versus comparison. CT scan shows regression of masses, now with a sternal fracture. No infiltrate or fluid overload. Labs note a white count of 15, hematocrit 44, platelets 169. BUN 25, creatinine 1.1. BNP 7783, slightly down from comparison of 8000+. Troponin 0.06. Patient is improved and is weaned to high flow oxygen. ECG Data Attestation: I personally reviewed and interpreted this ECG (s) as follows: Interpretation: Sinus tachycardia with a rate of 137, the QRS is narrow, WV interval 120, no ST segment elevation HPI General Mode of arrival: EMS . Date/Time Provider Initiated Documentation: 06/13/19 08:17 . Limitations to Documentation: no limitations . Information obtained by: patient and EMS . History of Present Illness 68 year old M presents to the emergency department with the chief complaint of Escalating shortness of breath over 2 days with oxygen use from 4 to 10 L, described as severe, Quality is described as constant, and is localized to the chest. Patient reports no radiation. Patient started experiencing this day(s) and it has been constant. No relieving factors improve symptom(s), No exacerbating factors reported . Patient notes shortness of breath; denies chest pain, cough, fever/chills and syncope. Patient did receive the following treatments prior to arrival, other ([facility] Related Data Home Medications Medication Instructions Recorded Confirmed Aspirin 1 tab PO DAILY 12/31/12 06/13/19 albuterol sulfate [ProAir HFA] 1 - 2 puff INHALATION QID PRN #2 12/25/16 06/13/19 inhaler nitroglycerin 0.4 mg SUBLINGUAL Q6H PRN PRN #25 06/27/17 06/13/19 tab-cap trazodone 100 mg tablet 100 mg PO DAILY #90 tab-cap 10/13/18 06/13/19 baclofen 10 mg tablet 10 mg PO BID #180 tab-cap 11/01/18 06/13/19 ranitidine HCl 150 mg tablet 150 mg PO BID PRN tab-cap 12/25/18 06/13/19 sertraline 100 mg tablet 200 mg PO DAILY #180 tab 12/25/18 06/13/19 acetaminophen 500 mg tablet 1,000 mg PO TID tab 03/26/19 06/13/19 celecoxib 200 mg capsule 200 mg PO BID #60 cap 03/26/19 06/13/19 prochlorperazine maleate 10 mg 10 mg PO Q6H PRN tab 03/26/19 06/13/19 tablet Oxygen #1 each 05/07/19 05/27/19 atorvastatin 80 mg tablet 80 mg PO DAILY #90 tab 05/07/19 06/13/19 gabapentin 300 mg capsule 900 mg PO BID #540 tab-cap 05/22/19 06/13/19 budesonide 0.5 mg INHALATION DAILY 05/25/19 06/13/19 ipratropium-albuterol 3 ml INHALATION QID 05/25/19 06/13/19 lisinopril 10 mg PO DAILY #90 tab 05/26/19 06/13/19 fentanyl 25 mcg/hr transdermal 1 patch TD Q72H #10 each MDD 1 05/27/19 06/13/19 patch prednisone 10 mg tablet 5 mg PO DAILY tab 05/27/19 06/13/19 lorazepam 1 mg PO TID MDD 4 06/13/19 06/13/19 Previous Rx's Medication Instructions Recorded trazodone 100 mg tablet 100 mg PO DAILY #90 tab-cap 10/13/18 baclofen 10 mg tablet 10 mg PO BID #180 tab-cap 11/01/18 sertraline 100 mg tablet 200 mg PO DAILY #180 tab 12/25/18 celecoxib 200 mg capsule 200 mg PO BID #60 cap 03/26/19 atorvastatin 80 mg tablet 80 mg PO DAILY #90 tab 05/07/19 gabapentin 300 mg capsule 900 mg PO BID #540 tab-cap 05/22/19 lisinopril 10 mg PO DAILY #90 tab 05/26/19 fentanyl 25 mcg/hr transdermal 1 patch TD Q72H #10 each MDD 1 05/27/19 patch Allergies Allergy/AdvReac Type Severity Reaction Status Date / Time bupropion Allergy Intermediate Hives Verified 05/27/19 15:04 Tricyclic Compounds Allergy Intermediate Hives Verified 05/27/19 15:04 omeprazole AdvReac Intermediate Diarrhea Verified 05/27/19 15:04 isosorbide mononitrate AdvReac Headache Verified 05/27/19 15:04 [From Imdur] ketorolac [From Toradol] AdvReac Headache Unverified 05/27/19 15:04 General VIRIDIANA: 2 Review of Systems Review of Systems Narrative: Cancer therapy, left chest port recently placed. Denies to me fever, cough, nausea, vomiting, chest pain. 8 systems reviewed and otherwise negative [facility] Family History Daughter No problems noted. Son No problems noted. Mother Aneurysm Father Aortic aneurysm Social History Smoking/Tobacco Use Status: Former Tobacco Use Quit Date: 09/17/17 Alcohol Intake: former Drug use: Never Substance use type: does not use Household members: significant other Housing: house Pets and animals: Yes ([facility]) Pets and animals: cat(s) Do you feel safe at home: Yes Do you feel safe in your relationship?: Yes Exam Narrative Exam Narrative: GEN: awake, alert, oriented 3. Tachypneic but conversant, interactive. HEAD: Normocephalic, atraumatic ENT: Mucous membranes moist, oropharynx unremarkable, External ear exam unremarkable EYES: PERRL, EOMI NECK: Full ROM, no MICHAEL, no menigismus CHEST/RESP: Left anterior chest ecchymosis and palpable port. Otherwise nontender, diminished bilaterally, tachypneic CARDIOVASCULAR: Tachycardic and distant, no murmur, rub renan. 2+ Rad pulse bilateral ABDOMEN: Soft, nontender, no mass. +Bowel sounds EXT: Full ROM, no edema, no rash Neuro: Grossly normal neurologic exam, conversant, interactive. Psych: Speech fluent, thoughts congruent, affect normal
[2019-06-13] MEDS: methylPREDNISolone SUCC 125 MG VIAL IVP (08:14)
[2019-06-13 08:21] LABS: Abs Immature Grans 0.17 k/cumm (0.0-0.09); Absolute Basophil Count 0.03 k/cumm (0.0-0.2); Absolute Eosinophil Count 0.22 k/cumm (0.0-0.7); Absolute Lymphocyte Count 0.91 k/cumm (1.2-3.4); Absolute Monocyte Count 0.59 k/cumm (0.11-0.7); Absolute Neutrophil Count 13.57 k/cumm (1.2-6.7); Basophils % 0.2; Eosinophils % 1.4; HCT 44.5 % (40.0-50.0); HGB 14.3 g/dL (13.5-17.5); Immature Grans % 1.1; Lymphocytes % 5.9; Mean Corp. HGB Concentration 32.1 g/dL (32.0-36.0); Mean Corpuscular Hemoglobin 31.4 pg (27.0-33.0); Mean Corpuscular Volume 97.8 fL (80-95); Mean Platelet Volume 10.5 fL (8.0-11.0); Monocytes % 3.8; Neutrophils % 87.6; Platelet Count 169 x1000/uL (130-400); RBC 4.55 m/cumm (4.50-6.00); RBC Distribution Width 23.8 % (11.8-14.1); White Blood Cell Count 15.49 k/cumm (4.4-10.8)
[2019-06-13 08:33] LABS: Anisocytosis 1+; Diff Comment RBC Morph Reviewed; Polychromasia Present
[2019-06-13 08:34] LABS: Poikilocytes 1+
--- NOTE | 2019-06-13 08:34 | NUR.NOTE ---
resp at bedside to obtain abg Nursing Note:
--- NOTE | 2019-06-13 08:39 | DI.RAD_ITS ---
EXAM: XR PORTABLE CHEST AP INDICATION: COPD, SOB. COMPARISON: XR shoulder RT complete 2+V from 11/13/2018 XR CHEST 2V PA LATERAL from 11/13/2018 CT CHEST W from 03/31/2019 TECHNIQUE: 2D digital imaging was performed. FINDINGS: The patient reportedly has a history of metastatic lung carcinoma. There are severe changes of bullo us emphysema and pulmonary fibrosis. Comparison with previous chest radiograph of 11/13/2018 shows s ome increased prominence of the pulmonary interstitial radiodensities. The findings could represent CHF versus lymphangitic spread of tumor. Small right pleural effusion is noted. Left Port-A-Cath in position with its tip overlying the SVC. IMPRESSION: Interval increase in pulmonary interstitial markings, CHF versus lymphangitic spread of known metasta tic lung carcinoma
[2019-06-13 08:48] LABS: ALT 25 U/L (16-63); AST 21 U/L (15-37); Albumin 3.2 g/dL (3.4-5.0); Alkaline Phosphatase 102 U/L (46-116); Anion Gap 11.9 mmol/L (3-11); BUN 25 mg/dL (7-18); Bilirubin, Total 1.1 mg/dL (0.2-1.0); CO2 22.1 mmol/L (21.0-32.0); Calcium 8.8 mg/dL (8.5-10.1); Chloride 108 mmol/L (98-107); Glucose 152 mg/dL (70-100); Magnesium 2.1 mg/dL (1.8-2.4); NT-proBNP 7783 pg/mL; Potassium 4.8 mmol/L (3.5-5.1); Sodium 142 mmol/L (136-145); Total Protein 7.1 g/dL (6.4-8.2); Troponin I 0.06 ng/mL (0.00-0.06)
[2019-06-13 08:48] LABS: HCO3 21 mmol/L (22-28); pCO2 30 mmHg (34-47); pH 7.46 (7.35-7.45); pO2 144 mmHg (83-108)
[2019-06-13 08:53] LABS: Site Left Radial
[2019-06-13 08:54] LABS: FIO2 60 %
--- NOTE | 2019-06-13 09:33 | DI.CT_ITS ---
EXAM: CT CHEST WO CLINICAL HISTORY: lung cancer, COPD, dyspneic.. TECHNIQUE: COMPARISON: CT CHEST W from 03/31/2019 FINDINGS: CT examination of the chest was performed without contrast administration. Examination is compared w ith prior chest CT of March 31. A retrosternal mass consistent with the patient's diagnosis of lung carcinoma is noted to be cavitating and smaller in size in comparison with the previous examination. Interval development of a sternal fracture, mildly displaced, is noted, since the previous examinat ion presumably cysts secondary to direct invasion by adjacent tumor. Trace pericardial effusion agai n noted. Nonspecific lymph nodes again present in the mediastinum, no gross interval change. Right hilar mass less prominent than on previous examination. No gross new focal consolidation seen. No p leural effusion seen. Visualized portions of liver and spleen are unremarkable. IMPRESSION: Conclusion interval regression of right hilar mass and decreased size and cavitation of anterior medi astinal mass since previous examination of March 31. Interval fracture of the sternum noted presuma ryanne secondary to direct invasion by tumor. No evidence of acute intrapulmonary consolidation to suggest infectious process
--- NOTE | 2019-06-13 12:00 | HPE_ITS ---
Date of service: 06/13/19 Time of Service: 12:00 Assessment and Plan Assessment and plan (1) Acute exacerbation of chronic obstructive pulmonary disease (COPD): Status: Acute Assessment and plan: Already markedly improved since arrival to the hospital. Will monitor in the ICU x 24 hours while offering humidified heated high flow/CPAP as needed. Start empiric vancomycin/cefepime as the cough is prod uctive. Obtain sputum culture. Treat with scheduled and prn nebs, pulmicort. (2) Acute and chronic respiratory failure with hypoxia: Status: Acute Assessment and plan: As above (3) Pulmonary hypertension: Status: Acute Assessment and plan: As above (4) Right-sided congestive heart failure: Status: Acute Assessment and plan: As above (5) Squamous cell lung cancer: Status: Acute Assessment and plan: s/p chemo, on immunotherapy - consult palliative care. (6) Obstructive sleep apnea hypopnea, severe: Status: Acute Assessment and plan: Provide CPAP at night (7) DVT prophylaxis: Status: Acute Assessment and plan: SC lovenox, TEDs, SCDs (8) Discharge planning issues: Status: Acute Assessment and plan: DNR/DNI History of Present Illness History of Present Illness Chief Complaint: shortness of breath Narrative: Mr Ambrose is a 68 year old male with PMHx of squamous cell lung cancer, s/p chemo, on immunotherapy, as well as COPD, pulmonary hypertension, chronic hypoxic respiratory failure, normally on 4L at rest and 8 L of O2 with activity, chronic cor pulmonale, MEGAN not using his CPAP for the last 2 years, who was brought to [facility] ED today by ambulance for progressively worsening shortness of breath and oxygen requirement since Sunday, when he had his infusaport placed at [facility] [place]. The patient states that for the last 2 weeks, he has had a cough productive of yellow brown sputum. The patient was requiring 7L at rest to saturate 88%, per his girlfriend, and 10 L with activity (going to the bathroom) would only get him to 74%. When EMS arrived, the patient was found to be hypoxic to 70% with RR of 40's. He was placed on CPAP and taken to ED, where he was still tachypneic and placed on BiPAP. His ABG did not reveal any CO2 retention. With initiation of solumedrol and nebs, the patient felt better and was transitioned to humidified heated high flow. He feels much better now, but still mildly short of breath. While he endorses a weight gain of 3 lbs since his discharge from our hospital on 05/26/19, he has not noticed any leg swelling, denies worsening shortness of breath when laying flat. He also denies waking up short of breath. In our discussion, he clearly states he is DNR/DNI. He follows with Dr Beckham for both his primary care and palliative care. Review of Systems Review of Systems Narrative: 12 systems reviewed - pertinent positives and negatives are as per HPI. [facility] Family History Daughter No problems noted. Son No problems noted. Mother Aneurysm Father Aortic aneurysm Social History Smoking/Tobacco Use Status: Former Tobacco Use Quit Date: 09/17/17 Alcohol Intake: former Drug use: Never Substance use type: does not use Household members: significant other Housing: house Pets and animals: Yes ([facility]) Pets and animals: cat(s) Do you feel safe at home: Yes Do you feel safe in your relationship?: Yes Meds Home Medications and Allergies Home Medications Medication Instructions Recorded Confirmed Type Aspirin 1 tab PO DAILY 12/31/12 06/13/19 History albuterol sulfate [ProAir HFA] 1 - 2 puff INHALATION QID PRN #2 12/25/16 06/13/19 History inhaler nitroglycerin 0.4 mg SUBLINGUAL Q6H PRN PRN #25 06/27/17 06/13/19 History tab-cap trazodone 100 mg tablet 100 mg PO DAILY #90 tab-cap 10/13/18 06/13/19 Rx baclofen 10 mg tablet 10 mg PO BID #180 tab-cap 11/01/18 06/13/19 Rx ranitidine HCl 150 mg tablet 150 mg PO BID PRN tab-cap 12/25/18 06/13/19 History sertraline 100 mg tablet 200 mg PO DAILY #180 tab 12/25/18 06/13/19 Rx acetaminophen 500 mg tablet 1,000 mg PO TID tab 03/26/19 06/13/19 History celecoxib 200 mg capsule 200 mg PO BID #60 cap 03/26/19 06/13/19 Rx prochlorperazine maleate 10 mg 10 mg PO Q6H PRN tab 03/26/19 06/13/19 History tablet Oxygen #1 each 05/07/19 05/27/19 History atorvastatin 80 mg tablet 80 mg PO DAILY #90 tab 05/07/19 06/13/19 Rx gabapentin 300 mg capsule 900 mg PO BID #540 tab-cap 05/22/19 06/13/19 Rx budesonide 0.5 mg INHALATION DAILY 05/25/19 06/13/19 History ipratropium-albuterol 3 ml INHALATION QID 05/25/19 06/13/19 History lisinopril 10 mg PO DAILY #90 tab 05/26/19 06/13/19 Rx fentanyl 25 mcg/hr transdermal 1 patch TD Q72H #10 each MDD 1 05/27/19 06/13/19 Rx patch prednisone 10 mg tablet 5 mg PO DAILY tab 05/27/19 06/13/19 History lorazepam 1 mg PO TID MDD 4 06/13/19 06/13/19 History Allergies Allergy/AdvReac Type Severity Reaction Status Date / Time bupropion Allergy Intermediate Hives Verified 05/27/19 15:04 Tricyclic Compounds Allergy Intermediate Hives Verified 05/27/19 15:04 omeprazole AdvReac Intermediate Diarrhea Verified 05/27/19 15:04 isosorbide mononitrate AdvReac Headache Verified 05/27/19 15:04 [From Imdur] ketorolac [From Toradol] AdvReac Headache Unverified 05/27/19 15:04 Exam Narrative Exam Narrative: General: Very pleasant middle-aged male, laying in bed at a 15% angle on humidified heated high flow O2, no dyspnea/tachypnea noted, able to complete sentences Neuro: A&Ox3, no focal deficits Psych: appears to have a flat affect, otherwise, appropriate/congruent speech pattern/content Skin: infusaport site is dressed - c/d/i HEENT: Atraumatic, nomrocephalic, EOMI, MMM, clear oropharynx, no submandibular or cervical lymphadenopathy, no goiter or JVD Heart: RRR, no m/r/g, tachycardic Lungs: rhonchi heard in the middle of the L lung field posteriorly; otherwise coarse breath sounds with excellent bilateral air entry Abdomen: abdomen is soft, nontender, nondistended : deferred Extremities: No e/c/c BLE's, 2+ pedal pulses B, no edema/cyanosis. ?mild clubbing Results Imaging Additional studies: CXR: Interval increase in pulmonary interstitial markings, CHF versus lymphangitic spread of known metastatic lung carcinoma CTA chest: interval regression of right hilar mass and decreased size and cavitation of anterior mediastinal mass since previous examination of March 31. Interval fracture of the sternum noted presumably secondary to direct invasion by tumor. No evidence of acute intrapulmonary consolidation to suggest infectious process Labs Result diagrams: 06/13/19 08:15 06/13/19 08:15 Labs: Laboratory Results - last 24 hr 06/13/19 06/13/19 06/13/19 08:15 08:15 08:45 WBC 15.49 H RBC 4.55 Hgb 14.3 Hct 44.5 MCV 97.8 H MCH 31.4 MCHC 32.1 RDW 23.8 H Plt Count 169 MPV 10.5 Immature Gran % 1.1 Neutrophils % 87.6 Lymphocytes % 5.9 Monocytes % 3.8 Eosinophils % 1.4 Basophils % 0.2 Absolute Neutrophils 13.57 H Absolute Lymphocytes 0.91 L Absolute Monocytes 0.59 Absolute Eosinophils 0.22 Absolute Basophils 0.03 Differential Comment Rbc morph reviewed RBC Morphology See below Polychromasia Present Poikilocytosis 1+ Anisocytosis 1+ Sample Site Left radial pCO2 30 L pO2 144 H ABG pH 7.46 H ABG HCO3 21 L ABG Base Excess -3.0 FiO2 60 Sodium 142 Potassium 4.8 D Chloride 108 H Carbon Dioxide 22.1 Anion Gap 11.9 H BUN 25 H Creatinine 1.10 Estimated GFR/1.73 m2 >= 60.00 Glucose 152 H Calcium 8.8 Magnesium 2.1 Total Bilirubin 1.1 H AST 21 ALT 25 Alkaline Phosphatase 102 Troponin I 0.06 NT-Pro-B Natriuret Pep 7783 H Total Protein 7.1 Albumin 3.2 L Last Vital Signs Temp 36.6 C 06/13/19 08:07 Pulse 118 H 06/13/19 10:45 Resp 22 06/13/19 10:50 BP 119/86 06/13/19 10:45 Pulse Ox 95 06/13/19 11:33
[2019-06-13] MEDS: Albuterol/Ipratropium 3 ML UPD VIAL UPD ×2 (12:12→18:14)
[2019-06-13] MEDS: Enoxaparin 40 MG/0.4 ML SYR SC (12:48)
[2019-06-13] MEDS: Normal Saline Flush 10 ML SYR IVP (12:49)
[2019-06-13] MEDS: CEFEPIME 2 GM in Normal Saline 100 ML IVPB ×2 (12:49→19:15)
[2019-06-13] MEDS: Normal Saline 1,000 ML 75 ML IV (12:49)
[2019-06-13] MEDS: fentaNYL 25 MCG PATCH TD (14:24)
[2019-06-13] MEDS: LORazepam 1 MG TAB PO ×2 (14:24→19:15)
[2019-06-13] MEDS: Acetaminophen 500 MG TAB 1000 MG PO ×2 (14:24→19:15)
[2019-06-13] MEDS: Patch Removal 1 EACH TP (14:25)
[2019-06-13] MEDS: methylPREDNISolone SUCC 125 MG VIAL 80 MG IVP (16:23)
[2019-06-13] MEDS: Gabapentin 300 MG CAP 900 MG PO (19:15)
[2019-06-13] MEDS: Celecoxib 200 MG CAP PO (19:15)
[2019-06-13] MEDS: Baclofen 10 MG TAB PO (19:15)
[2019-06-14] VITALS (25 sets, daily range): BP systolic 108–157; BP diastolic 80–100; PULSE 76–103; RESP 1–25; TEMP 31–37.4; O2SAT 84–99
[2019-06-14] MEDS: methylPREDNISolone SUCC 125 MG VIAL 80 MG IVP ×2 (00:19→08:27)
[2019-06-14] MEDS: CEFEPIME 2 GM in Normal Saline 100 ML IVPB ×3 (04:03→19:39)
[2019-06-14] MEDS: Albuterol/Ipratropium 3 ML UPD VIAL UPD ×3 (06:15→16:16)
[2019-06-14] MEDS: Normal Saline Flush 10 ML SYR IVP ×2 (06:15→08:25)
[2019-06-14 07:28] LABS: Abs Immature Grans 0.04 k/cumm (0.0-0.09); Absolute Neutrophil Count 9.68 k/cumm (1.2-6.7); HCT 35.3 % (40.0-50.0); HGB 11.4 g/dL (13.5-17.5); Immature Grans % 0.4; Lymphocytes % 2.9; Mean Corp. HGB Concentration 32.3 g/dL (32.0-36.0); Mean Corpuscular Hemoglobin 31.3 pg (27.0-33.0); Mean Platelet Volume 10.7 fL (8.0-11.0); Neutrophils % 94.7; Platelet Count 134 x1000/uL (130-400); RBC 3.64 m/cumm (4.50-6.00); RBC Distribution Width 22.9 % (11.8-14.1); White Blood Cell Count 10.22 k/cumm (4.4-10.8)
[2019-06-14 07:34] LABS: Anion Gap 8.4 mmol/L (3-11); BUN 33 mg/dL (7-18); CO2 23.6 mmol/L (21.0-32.0); CREATININE 0.79 mg/dL (0.70-1.30); Calcium 8.5 mg/dL (8.5-10.1); Chloride 111 mmol/L (98-107); Glucose 128 mg/dL (70-100); Magnesium 2.4 mg/dL (1.8-2.4); Potassium 4.3 mmol/L (3.5-5.1); Sodium 143 mmol/L (136-145)
[2019-06-14] MEDS: Budesonide 0.5 MG/2 ML UPD VIAL IH (07:51)
[2019-06-14 08:20] LABS: Anisocytosis 2+; Diff Comment RBC Morph Reviewed; Polychromasia Present
[2019-06-14 08:21] LABS: Poikilocytes 1+
--- NOTE | 2019-06-14 08:21 | PDOC.CMIN ---
- If Service Date Differs Date of service: 06/14/19 Time of Service: 08:21 Care Management Initial Assess REASON FOR HOSPITALIZATION:: Acute COPD, acute on chronic hypoxia PAST MEDICAL HISTORY/PAST SURGICAL HISTORY:: Medical History : Chronic low back pain. COPD (chronic obstructive pulmonary disease). Essential hypertension. GERD (gastroesophageal reflux disease). MEGAN on CPAP PREVIOUS FUNCTIONAL STATUS/SOCIAL/FAMILY SUPPORTS:: Simone lives with his girlfriend of 8 years,Josie, in a single family home in [place], [place]. 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 iSmone uses oxygen at home but is not clear about how many liters he is currently on. He is independent with most activities and ADLs. CURRENT FUNCTIONAL STATUS:: Simone is sitting up in bed he is alert and engaged during assessment. His family is present at his side and supportive. Simone states his goal is to be home with his family and to decrease his amount of oxygen use. He is able to openly discuss his cancer treatments and is hopeful that his tumor will shrink. His family would like him to return home with resp support so that he can particpate in activities. Simone states he wants to be home in his recliner and use a urinal so that he does not get short of breath. CM provided active listening to Simone and his family and offered reflection of both Simone's concerns and his families. Simone states he is happier at home and feels that he, and have come up with a good plan to meet his goals of staying home. Simnoe is hopeful at times his family is concerned that his breathing does not allow him to get out of the house or go with the family to the races. His daughter states you just sit in the chair when your home thats not quality, we want you to be able to go to the races with us. ADVANCE DIRECTIVES:: COLST on file Has patient been provided with information about the portal?: Yes Did the patient sign up for the portal?: No (enrolled) CODE STATUS:: DNR/DNI INSURANCE COVERAGE / FINANCIAL ISSUES:: Medicare. [place] CURRENT HOME/COMMUNITY SERVICES/EQUIPMENT:: Oxygen through [facility] PRIMARY CARE PHYSICIAN:: Malka Sandhu MD POTENTIAL DISCHARGE NEEDS:: Resumption of home health services nursing, palliaitve care and follow up with oncology. PATIENT/FAMILY EDUCATION NEEDS:: Discharge education, limitations and RT support and teaching. Follow up plan as put in to place by patient and his palliative care provider. (see note) ANTICIPATED BARRIERS TO DISCHARGE:: Ability to obtain equipment needed to support resp function at home inclduing humidified oxygen. RT is addressing with prompt care. TRANSPORTATION:: Via private car with family at time of discharge. PLAN:: Simone will be discharged home with resumption of home health services including pallaitive care and oxygen through [facility]. RT is setting up additional supports through [facility]. CM to continue to provide support discharge planning and disposition.
[2019-06-14] MEDS: Acetaminophen 500 MG TAB 1000 MG PO ×3 (08:25→19:39)
[2019-06-14] MEDS: Gabapentin 300 MG CAP 900 MG PO ×2 (08:26→19:40)
[2019-06-14] MEDS: LORazepam 1 MG TAB PO ×3 (08:26→19:39)
[2019-06-14] MEDS: Celecoxib 200 MG CAP PO ×2 (08:26→19:40)
[2019-06-14] MEDS: Baclofen 10 MG TAB PO ×2 (08:26→19:40)
[2019-06-14] MEDS: Sertraline 50 MG TAB 200 MG PO (08:26)
[2019-06-14] MEDS: Lisinopril 10 MG TAB PO (08:26)
[2019-06-14] MEDS: Pantoprazole 40 MG TABCR PO (08:26)
[2019-06-14] MEDS: Atorvastatin 40 MG TAB 80 MG PO (08:27)
[2019-06-14] MEDS: Aspirin 81 MG CHEW CH (08:27)
--- NOTE | 2019-06-14 09:32 | W.PALLCONSUL ---
Date of service: 06/14/19 Time of Service: 09:32 History of Present Illness History of Present Illness Chief Complaint: SOB Narrative: Jose is a 68-year-old man with severe COPD, alpha antitrypsin antibody deficiency heterozygous, lung cancer, and pulmonary hypertension. He was hospitalized approximately 3 weeks ago for hypoxia secondary to COPD. He has had 2 CAT scans recently both showing decrease in his lung cancer from his treatment. He did not qualify for high flow oxygen during his last hospitalization. He was on a prednisone taper. He was having more shortness of breath. He found himself going down to the 70s O2 sat walking from the bedroom to the kitchen. He would have to rest before he had the strength to go to the bathroom. night he became more hypoxic. Eventually came to the hospital. He was given Solu-Medrol and antibiotics as well as a CT scan. He was admitted for further care. He is presently on high flow O2, receiving Solu-Medrol, antibiotics on board. I am meeting with Jose and his significant other La Nena to discuss plans He is a DNR/DNI. He is still pursuing active treatment for his lung cancer. La Nena is very astute and stated that she felt that they needed a plan at home for his COPD. They both understand that it is not just lung cancer causing this, in fact that is actually improved. It is multifactorial with his COPD and pulmonary hypertension. Assessment and Plan Assessment and plan (1) Acute and chronic respiratory failure with hypoxia: Status: Acute (2) Acute exacerbation of chronic obstructive pulmonary disease (COPD): Status: Acute Assessment and plan: I agree strongly with La Nena. We need to have a plan for his COPD exacerbations. I think it is important to keep him at home as much as possible away from the germs of the hospital. He is tenuous at best regarding his respiratory status. They are working on getting him the high flow oxygen which I think will be helpful. When he goes home this is the plan 1. The lowest he will be tapered down is to prednisone 20 mg daily. When he goes below this he seems to have worsened respiratory reserve 2. He will have a reserve of prednisone 80 mg p.o. that he can take if his O2 sat remains below 85% after 15 to 20-minute rest 3. He will also have some Levaquin at home that he will start 4. I urged him to use liquid morphine to help with respiratory distress. He can use this prophylactically, several times daily, but especially if his oxygen saturations will not improve I will call in the 3 above medications. Please give the above instructions for patient to follow when he is discharged. Keenan Nichols and La Nena also have my contact numbers so that they can get in touch with me if his O2 sat does not respond. They know to call me if he has to take the extra prednisone Levaquin etc. Can also stated that he thinks it will improve if he stays in bed and does not delaney out of bed first thing in the morning. He will have a urinal next to his bed so that he can sit and wake up quietly rather than delaney out of bed and use up any reserve that he has I will see can again either Sunday or Sunday. Thank you very much for this consult (3) Pulmonary hypertension: Status: Acute (4) Squamous cell lung cancer: Status: Acute Assessment and plan: Presently has [id number] with plans for immunotherapy. CT scan shows decrease in lung cancer mass (5) Fracture closed, sternum: Status: Acute Assessment and plan: DNR/DNI Review of Systems Review of Systems Narrative: Jose's main problem is his hypoxia. He tries to do his activities of daily living, but is unable to because of his lack of reserve. [facility] Family History Daughter No problems noted. Son No problems noted. Mother Aneurysm Father Aortic aneurysm Social History Smoking/Tobacco Use Status: Former Tobacco Use Quit Date: 09/17/17 Alcohol Intake: former Drug use: Never Substance use type: does not use Household members: significant other Housing: house Pets and animals: Yes ([facility]) Pets and animals: cat(s) Do you feel safe at home: Yes Do you feel safe in your relationship?: Yes Exam Narrative Exam Narrative: Jose is lying in bed. He is able to speak in 2-4 word sentences. He needs help to sit up for me to listen to his lungs. There is little air movement in his lungs. His heart is tachycardic today legs do show some edema I think it is just from him lying down. Patient Name: JOSE BISHOP #: [id number]: ER Ordering Provider: Deep Whitaker M.D. : REG ER Primary Care Provider: Malka Sandhu M.D.Date of Exam: 06/13/19Sex: M : 1950ge: 68 Exam(s) a CT:CT chest wo EXAM: CT CHEST WO CLINICAL HISTORY: lung cancer, COPD, dyspneic.. TECHNIQUE: COMPARISON: CT CHEST W from 03/31/2019 FINDINGS: CT examination of the chest was performed without contrast administration. Examination is compared with prior chest CT of March 31. A retrosternal mass consistent with the patient's diagnosis of lung carcinoma is noted to be cavitating and smaller in size in comparison with the previous examination. Interval development of a sternal fracture, mildly displaced, is noted, since the previous examination presumably cysts secondary to direct invasion by adjacent tumor. Trace pericardial effusion again noted. Nonspecific lymph nodes again present in the mediastinum, no gross interval change. Right hilar mass less prominent than on previous examination. No gross new focal consolidation seen. No pleural effusion seen. Visualized portions of liver and spleen are unremarkable. IMPRESSION: Conclusion interval regression of right hilar mass and decreased size and cavitation of anterior mediastinal mass since previous examination of March 31. Interval fracture of the sternum noted presumably secondary to direct invasion by tumor. No evidence of acute intrapulmonary consolidation to suggest infectious process Chest Chest: other ([id number] noted) Resp Effort & Inspection: labored, pursed lip breathing and prolonged expiratory phase Cardio Rate: tachycardic Extrem General: pedal edema Results Last Vital Signs Temp 98.2 F 06/14/19 08:30 Pulse 87 06/14/19 08:30 Resp 15 06/14/19 08:30 BP 139/92 H 06/14/19 08:30 Pulse Ox 91 L 06/14/19 08:30 Labs Result diagrams: 06/14/19 06:20 06/14/19 06:36 Labs: Laboratory Results - last 24 hr 06/13/19 06/14/19 06/14/19 08:45 06:20 06:36 WBC 10.22 D RBC 3.64 L Hgb 11.4 L D Hct 35.3 L D MCV 97.0 H MCH 31.3 MCHC 32.3 RDW 22.9 H Plt Count 134 MPV 10.7 Immature Gran % 0.4 Neutrophils % 94.7 Lymphocytes % 2.9 Monocytes % 2.0 Eosinophils % 0.0 Basophils % 0.0 Absolute Neutrophils 9.68 H Absolute Lymphocytes 0.30 L Absolute Monocytes 0.20 Absolute Eosinophils 0.00 Absolute Basophils 0.00 Differential Comment Rbc morph reviewed RBC Morphology See below Polychromasia Present Poikilocytosis 1+ Anisocytosis 2+ O2 Saturation ABG Total CO2 Sodium 143 Potassium 4.3 Chloride 111 H Carbon Dioxide 23.6 Anion Gap 8.4 BUN 33 H Creatinine 0.79 Estimated GFR/1.73 m2 >= 60.00 Glucose 128 H Calcium 8.5 Magnesium 2.4
--- NOTE | 2019-06-14 11:19 | PHARADMIT ---
Addendum entered by Harjeet Singleton III 06/16/19 09:42: Pharmacy Note Subjective Patient continues to improve,MD wants 5 full days of IV ABX thereapy (on Day#4) before considering discharge Objective VS-OK Lytes,SCr, H&H,Plts-OK WBC-12.16 Wgt-85.4 kg Assessment Cefepime & Vancomycin DC'd changed to PO Doxxycycline bid Plan patient transferred to Med/Surg floor. Addendum entered by Harjeet Singleton III 06/15/19 13:36: Pharmacy Note Subjective MD notes no wheezing,goof airflow much improved, but not at baseline. Believes patint should be hospice with palliative care orders of Liquid Morphine and steroids. Objective VS-OK Lytes, SCr, H&H,Plts-OK WBC-14.09 wgt-up 87.5 kg (BM yesterday) Assessment Vancomycin trough 18.1 (17.3 interpolated) Cefepime continues Plan MD/CM note that Patient and Family are not ready to accept his need for hospice/palliative care. Original Note: Admission Pharmacy Clinical Review ACUTE EXACERBATION of CHF, Acute on chronic Hypoxia Code Status DNR/DNI Current Weight Wgt-84.7 kg Renally Cleared and Narrow Therapeutic Index Meds CrCl~ 102 mL/min Meds-OK QTc Value / Action Taken QTc-447 (Protonix, Sertraline, Trazodone) BP Control, Fever BP-139/92 Tmax-36.8C Electrolytes reviewed Na- 143 K+4.3 Mag-2.4 DVT Prophylaxis Lovenox, ASA Opiate Usage / Scheduled Bowel Regimen Ordered Yes (Fentanyl patch) Yes Plt/SCr for Heparin / Enoxaparin Plts-134 SCr-0.79 INR for Warfarin na H/H stable, WBC/Bands H&H- 11.4/35.3 WBC- 10.22 Antibiotic appropriateness Cefepime, Vancomycin Cultures and Sensitivities Sputum-pending Surgical ABX d/c within 24 hr na DM control / Insulin Dosing BG-128 Heart Failure (Check EF%) ([facility]'s, B-Block, Diuretics) Lisinopril, NTG IV to PO Switch No Home Meds Reviewed Yes Home Meds Not Ordered Levaquin, Morphine Conc, Comments
[2019-06-14] MEDS: Enoxaparin 40 MG/0.4 ML SYR SC (12:38)
--- NOTE | 2019-06-14 14:46 | W.PM.PROGNOT ---
Date of Service Date of service: 06/14/19 Time of Service: 14:46 Assessment and Plan Assessment and plan (1) COPD (chronic obstructive pulmonary disease): Status: Chronic Assessment and plan: No current evidence of wheezing, good airflow, and symptomatically improved. - Continue IV Steroids but initiate wean today. Continue broad spectrum antibiotics and await sputum cultures. - Continue standing duonebs. Palliative care discussed long-term plan at home with prn steroids and liquid morphine, which will be initiated at this time. - Continue but attempt to wean high flow Oxygen as able. - Palliative care consulted and following. Overall appears improved. (2) CAD (coronary artery disease): Status: Chronic Assessment and plan: History of BASILIO in 2016 to LAD, with demand related ischemia in the setting of hypoxia last admission. - Continue ASA, high potency statin. Continue NTG prn. Avoid BB given severity of COPD. - No evidence of wma's or depressed LVEF by recent ECHO. (3) Cor pulmonale: Status: Acute Assessment and plan: PHTN with PAP in the 60-70's range, with resultant evidence of RV dilation and impaired function. Continue treatment of underlying lung disease, and monitor fluid status. (4) Right-sided congestive heart failure: Status: Acute Assessment and plan: As above. (5) Squamous cell lung cancer: Status: Acute Assessment and plan: Previously on Chemo and XRT, following with [facility] Oncology. Currently receiving immunotherapy with Durvalumab, and is s/p Infusaport. (6) DVT prophylaxis: Status: Acute Assessment and plan: SC Enoxaparin. Also on PPI for GI Prophylaxis. (7) Advance directive discussed with patient: Status: Acute Assessment and plan: DNR/DNI Subjective Subjective Interval history since last seen: 68 year old man with a prior history of COPD and Lung Ca, admitted from [facility] Emergency Department on 06/13 with a diagnosis of Acute COPD Exacerbation. Mr. Ambrose has a Past Medical History significant for likely end-stage COPD on Home O2, and RUL NSCLCa diagnosed in January of 2019. 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 His other history includes A1 Antitrypsin Deficiciency (Heterozygous), CAD s/p BASILIO to LAD in 2015, Polyclonal Gammopathy, Bladder Ca s/p BCG injections in 2012, HTN, Cancer related pain on chronic opiate therapy, and GERD. He also reports a 100+ pack year history of tobacco use, started at approximately 9 years of age. ECHO performed last hospitalization showed evidence of Diastolic Dysfunction, PHTN with PAPs in the 70's, and RV dysfunction. The patient was recently admitted and treated for similiar symptoms between 05/20 and 05/26 - he was reportedly doing well and undergoing a steroid taper, when following a decrease in his steroid dose he bagan experiencing worsening dyspnea. In the ED he was found to require initial BiPAP therapy, and was initiated on IV Steroids and antibiotics, and referred for admission. This morning Mr. Ambrose reports improvement in his breathing, but not yet at baseline. No other events reported. Remains afebrile. Exam Narrative Exam Narrative: General: Appears chronically ill but non-toxic, AAOX3, NAD Neck: Supple CV: Regular, nontachycardic, S1S2, No rubs, murmurs, or gallops. Pulmonary: Clear to auscultation bilaterally, no crackles, wheezing, or rhonchi Abdomen: + Bowel Sounds, soft, nontender, nondistended Vascular: No lower extremity edema Psych: Normal mood and affect. Objective Objective Clinical Data: Abnormal lab results 06/14/19 06/14/19 Range/Units 06:20 06:36 RBC 3.64 L (4.50-6.00) m/cumm Hgb 11.4 L D (13.5-17.5) g/dL Hct 35.3 L D (40.0-50.0) % MCV 97.0 H (80-95) fL RDW 22.9 H (11.8-14.1) % Absolute Neutrophils 9.68 H (1.2-6.7) k/cumm Absolute Lymphocytes 0.30 L (1.2-3.4) k/cumm Chloride 111 H (98-107) mmol/L BUN 33 H (7-18) mg/dL Glucose 128 H (70-100) mg/dL Vital Signs Temperature 36.8 C 06/14/19 12:45 Temperature Source Temporal Artery Scan 06/14/19 12:45 Pulse 95 H 06/14/19 12:45 Pulse 103 H 06/14/19 13:20 Respiratory Rate 25 H 06/14/19 13:20 Respiratory Effort 06/14/19 12:45 Respiratory Depth Normal 06/14/19 12:45 Respiratory Pattern Normal 06/14/19 12:45 Blood Pressure 140/90 06/14/19 12:45 Blood Pressure Mean 106 06/14/19 12:45 Blood Pressure Position Supine 06/14/19 03:56 Pulse Oximetry 84 L 06/14/19 13:20 Oxygen Delivery Method Hi Flow Nasal Cannula 06/14/19 12:45 Oxygen Flow Rate 25 06/14/19 12:45 Fraction of Inspired Oxygen (FIO2) 81 06/14/19 12:45 Pain Level 0 06/14/19 12:45 Intake & Output 06/13/19 06/14/19 06/14/19 23:59 11:59 23:59 Intake Total 586.25 / 586.25 1873.75 / 1873.75 Output Total 440 / 440 400 / 400 Balance 146.25 / 146.25 1473.75 / 1473.75 Weight 83.9 kg 84.7 kg Intake: IV 536.25 / 536.25 1313.75 / 1313.75 Oral 50 / 50 560 / 560 Output: Urine 440 / 440 400 / 400 Other: Urine Color Light Talia Dark Talia Urine Appearance Cloudy Clear Urine Odor Strong Comment mixed w/ stool, output amount is approximate Stool Size Moderate Stool Characteristics Soft Formed Brown Voiding Methods Bedside Commode Laboratory Results WBC 10.22 k/cumm (4.4-10.8) D 06/14/19 06:20 RBC 3.64 m/cumm (4.50-6.00) L 06/14/19 06:20 Hgb 11.4 g/dL (13.5-17.5) L D 06/14/19 06:20 Hct 35.3 % (40.0-50.0) L D 06/14/19 06:20 MCV 97.0 fL (80-95) H 06/14/19 06:20 MCH 31.3 pg (27.0-33.0) 06/14/19 06:20 MCHC 32.3 g/dL (32.0-36.0) 06/14/19 06:20 RDW 22.9 % (11.8-14.1) H 06/14/19 06:20 Plt Count 134 x1000/uL (130-400) 06/14/19 06:20 MPV 10.7 fL (8.0-11.0) 06/14/19 06:20 Immature Gran % 0.4 06/14/19 06:20 Neutrophils % 94.7 06/14/19 06:20 Lymphocytes % 2.9 06/14/19 06:20 Monocytes % 2.0 06/14/19 06:20 Eosinophils % 0.0 06/14/19 06:20 Basophils % 0.0 06/14/19 06:20 Absolute Neutrophils 9.68 k/cumm (1.2-6.7) H 06/14/19 06:20 Absolute Lymphocytes 0.30 k/cumm (1.2-3.4) L 06/14/19 06:20 Absolute Monocytes 0.20 k/cumm (0.11-0.7) 06/14/19 06:20 Absolute Eosinophils 0.00 k/cumm (0.0-0.7) 06/14/19 06:20 Absolute Basophils 0.00 k/cumm (0.0-0.2) 06/14/19 06:20 Differential Comment Rbc morph reviewed 06/14/19 06:20 RBC Morphology See below 06/14/19 06:20 Polychromasia Present 06/14/19 06:20 Poikilocytosis 1+ 06/14/19 06:20 Anisocytosis 2+ 06/14/19 06:20 Sample Site Left radial 06/13/19 08:45 pCO2 30 mmHg (34-47) L 06/13/19 08:45 pO2 144 mmHg (83-108) H 06/13/19 08:45 O2 Saturation % (94-98) 06/13/19 08:45 ABG pH 7.46 (7.35-7.45) H 06/13/19 08:45 ABG HCO3 21 mmol/L (22-28) L 06/13/19 08:45 ABG Total CO2 mmol/L (22-29) 06/13/19 08:45 ABG Base Excess -3.0 mmol/L (-3-3) 06/13/19 08:45 FiO2 60 % 06/13/19 08:45 Sodium 143 mmol/L (136-145) 06/14/19 06:36 Potassium 4.3 mmol/L (3.5-5.1) 06/14/19 06:36 Chloride 111 mmol/L (98-107) H 06/14/19 06:36 Carbon Dioxide 23.6 mmol/L (21.0-32.0) 06/14/19 06:36 Anion Gap 8.4 mmol/L (3-11) 06/14/19 06:36 BUN 33 mg/dL (7-18) H 06/14/19 06:36 Creatinine 0.79 mg/dL (0.70-1.30) 06/14/19 06:36 Estimated GFR/1.73 m2 >= 60.00 (mL/min/1.73m2) 06/14/19 06:36 Glucose 128 mg/dL (70-100) H 06/14/19 06:36 Calcium 8.5 mg/dL (8.5-10.1) 06/14/19 06:36 Magnesium 2.4 mg/dL (1.8-2.4) 06/14/19 06:36 Total Bilirubin 1.1 mg/dL (0.2-1.0) H 06/13/19 08:15 AST 21 U/L (15-37) 06/13/19 08:15 ALT 25 U/L (16-63) 06/13/19 08:15 Alkaline Phosphatase 102 U/L (46-116) 06/13/19 08:15 Troponin I 0.06 ng/mL (0.00-0.06) 06/13/19 08:15 NT-Pro-B Natriuret Pep 7783 pg/mL (-299) H 06/13/19 08:15 Total Protein 7.1 g/dL (6.4-8.2) 06/13/19 08:15 Albumin 3.2 g/dL (3.4-5.0) L 06/13/19 08:15
[2019-06-14] MEDS: methylPREDNISolone SUCC 40 MG VIAL IVP (16:17)
[2019-06-14] MEDS: traZODone 100 MG TAB PO (19:40)
[2019-06-15] VITALS (48 sets, daily range): BP systolic 110–184; BP diastolic 63–118; PULSE 76–103; RESP 1–22; TEMP 31–37.7; O2SAT 88–99
[2019-06-15] MEDS: methylPREDNISolone SUCC 40 MG VIAL IVP ×3 (02:17→19:42)
[2019-06-15] MEDS: CEFEPIME 2 GM in Normal Saline 100 ML IVPB ×3 (04:25→19:43)
[2019-06-15] MEDS: Albuterol/Ipratropium 3 ML UPD VIAL UPD ×4 (04:28→16:02)
[2019-06-15 05:32] LABS: Vancomycin, Trough 18.1 ug/mL (10.0-20.0)
[2019-06-15 07:17] LABS: Abs Immature Grans 0.06 k/cumm (0.0-0.09); HCT 36.2 % (40.0-50.0); HGB 11.6 g/dL (13.5-17.5); Immature Grans % 0.4; Lymphocytes % 1.3; Mean Corpuscular Hemoglobin 31.3 pg (27.0-33.0); Mean Corpuscular Volume 97.6 fL (80-95); Mean Platelet Volume 10.9 fL (8.0-11.0); Monocytes % 2.1; Neutrophils % 96.2; Platelet Count 151 x1000/uL (130-400); RBC 3.71 m/cumm (4.50-6.00); RBC Distribution Width 22.6 % (11.8-14.1); White Blood Cell Count 14.09 k/cumm (4.4-10.8)
[2019-06-15 07:24] LABS: Anion Gap 9.9 mmol/L (3-11); BUN 35 mg/dL (7-18); CO2 22.1 mmol/L (21.0-32.0); CREATININE 0.81 mg/dL (0.70-1.30); Calcium 8.7 mg/dL (8.5-10.1); Chloride 110 mmol/L (98-107); Glucose 132 mg/dL (70-100); Magnesium 2.2 mg/dL (1.8-2.4); Potassium 4.3 mmol/L (3.5-5.1); Sodium 142 mmol/L (136-145)
[2019-06-15] MEDS: Budesonide 0.5 MG/2 ML UPD VIAL IH (07:37)
[2019-06-15 08:09] LABS: Absolute Lymphocyte Count 0.18 k/cumm (1.2-3.4); Absolute Neutrophil Count 13.55 k/cumm (1.2-6.7)
[2019-06-15 08:10] LABS: Anisocytosis 1+; Diff Comment RBC Morph Reviewed; Macrocytosis 1+; Poikilocytes 1+; Polychromasia Present
[2019-06-15] MEDS: Sertraline 50 MG TAB 200 MG PO (08:16)
[2019-06-15] MEDS: Lisinopril 10 MG TAB PO (08:16)
[2019-06-15] MEDS: LORazepam 1 MG TAB PO ×3 (08:16→19:43)
[2019-06-15] MEDS: Gabapentin 300 MG CAP 900 MG PO ×2 (08:17→19:43)
[2019-06-15] MEDS: Pantoprazole 40 MG TABCR PO (08:17)
[2019-06-15] MEDS: Aspirin 81 MG CHEW CH (08:17)
[2019-06-15] MEDS: Atorvastatin 40 MG TAB 80 MG PO (08:17)
[2019-06-15] MEDS: Acetaminophen 500 MG TAB 1000 MG PO ×3 (08:18→19:42)
[2019-06-15] MEDS: Baclofen 10 MG TAB PO ×2 (08:18→19:43)
[2019-06-15] MEDS: Celecoxib 200 MG CAP PO ×2 (08:18→19:43)
--- NOTE | 2019-06-15 08:47 | CMPROGNOTE_ITS ---
- If Service Date Differs Date of service: 06/15/19 Time of Service: 08:47 Care Management Progress Note S/O:Simone is alert he does appear more short of breath today during CM assessment. His daughter is present in the room and she is hopeful he will be able to move around a little more before he goes home. She states he needs to be able to walk to the bathroom. At this point he may benefit from a 4WW to be able to balance rest with activity at home so that he can get room to room. RT is titrating the oxygen and his CPAP to meet Simone's physiological demand for oxygen and respiratory support. Simone feels he would be happy to return home and stay in his recliner or bed and go out on his porch when he feels up to it instead of being in the hospital. Simone's family is struggling with their feelings of him not being able to participate in family activities due to his breathing. CM provided edu cation related to activity tolerance and his increase demand for oxygen during activities. His daughter would like him to have a PT consult and referral for 4WW prior to discharge.CM will request PT consult from provide and coordinate 4WW script if recommended. is planning on seeing Simone on Sunday to follow up. Simone is hopeful that he will go home on Sunday. CM to continue to provide support and education related to discharge planning and supports. A: Simone is a 68 year old male admitted with Acute COPD, acute on chronic hypoxia P:Simone will return home with his family when he is medically ready. He will continue to follow up with palliative care and oncology.
[2019-06-15] MEDS: Enoxaparin 40 MG/0.4 ML SYR SC (12:21)
--- NOTE | 2019-06-15 13:40 | W.PM.PROGNOT ---
Date of Service Date of service: 06/15/19 Time of Service: 13:40 Assessment and Plan Assessment and plan (1) COPD (chronic obstructive pulmonary disease): Status: Chronic Assessment and plan: No current evidence of wheezing, good airflow, and symptomatically improved. - Continue IV Steroids but continue wean today. Continue broad spectrum antibiotics and await sputum cultures - thus far unrevealing. No infiltrate by imaging. - Continue standing duonebs. Palliative care discussed long-term plan at home with prn steroids and liquid morphine, which will be initiated at time of discharge. - Continue but attempt to wean high flow Oxygen as able. BiPAP as needed. - Palliative care consulted and following. Overall appears improved. (2) CAD (coronary artery disease): Status: Chronic Assessment and plan: History of BASILIO in 2016 to LAD, with demand related ischemia in the setting of hypoxia last admission. - Continue ASA, high potency statin. Continue NTG prn. Avoid BB given severity of COPD. - No evidence of wma's or depressed LVEF by recent ECHO. (3) Cor pulmonale: Status: Acute Assessment and plan: PHTN with PAP in the 60-70's range, with resultant evidence of RV dilation and impaired function. Continue treatment of underlying lung disease, and monitor fluid status. (4) Right-sided congestive heart failure: Status: Acute Assessment and plan: As above. (5) Squamous cell lung cancer: Status: Acute Assessment and plan: Previously on Chemo and XRT, following with [facility] On[facility]. Currently receiving immunotherapy with Durvalumab, and is s/p Infusaport. (6) DVT prophylaxis: Status: Acute Assessment and plan: SC Enoxaparin. Also on PPI for GI Prophylaxis. (7) Advance directive discussed with patient: Status: Acute Assessment and plan: DNR/DNI Subjective Subjective Interval history since last seen: 68 year old man with a prior history of COPD and Lung Ca, admitted from [facility] Emergency Department on 06/13 with a diagnosis of Acute COPD Exacerbation. Mr. Ambrose has a Past Medical History significant for likely end-stage COPD on Home O2, and RUL NSCLCa diagnosed in January of 2019. 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 His other history includes A1 Antitrypsin Deficiciency (Heterozygous), CAD s/p BASILIO to LAD in 2016, Polyclonal Gammopathy, Bladder Ca s/p BCG injections in 2012, HTN, Cancer related pain on chronic opiate therapy, and GERD. He also reports a 100+ pack year history of tobacco use, started at approximately 9 years of age. ECHO performed last hospitalization showed evidence of Diastolic Dysfunction, PHTN with PAPs in the 70's, and RV dysfunction. The patient was recently admitted and treated for similiar symptoms between 05/20 and 05/26 - he was reportedly doing well and undergoing a steroid taper, when following a decrease in his steroid dose he bagan experiencing worsening dyspnea. In the ED he was found to initially require BiPAP therapy, and was started on IV Steroids and antibiotics and referred for admission. This morning Mr. Ambrose reports continued improvement in his breathing, but not yet at baseline. Sputum Culture shows growth of normal mita, but with gram stain showing Moderate WBCs, with few GPR and rare GPC. No other events reported. Remains afebrile. Exam Narrative Exam Narrative: General: Appears chronically ill but non-toxic, AAOX3, NAD Neck: Supple CV: Regular, nontachycardic, S1S2, No rubs, murmurs, or gallops. Pulmonary: Clear to auscultation bilaterally, no crackles, wheezing, or rhonchi Abdomen: + Bowel Sounds, soft, nontender, nondistended Vascular: No lower extremity edema Psych: Normal mood and affect. Objective Objective Clinical Data: Abnormal lab results 06/15/19 06/15/19 Range/Units 06:15 06:15 WBC 14.09 H D (4.4-10.8) k/cumm RBC 3.71 L (4.50-6.00) m/cumm Hgb 11.6 L (13.5-17.5) g/dL Hct 36.2 L (40.0-50.0) % MCV 97.6 H (80-95) fL RDW 22.6 H (11.8-14.1) % Absolute Neutrophils 13.55 H (1.2-6.7) k/cumm Absolute Lymphocytes 0.18 L (1.2-3.4) k/cumm Chloride 110 H (98-107) mmol/L BUN 35 H (7-18) mg/dL Glucose 132 H (70-100) mg/dL Vital Signs Temperature 36.6 C 06/15/19 09:30 Temperature Source Temporal Artery Scan 06/15/19 09:30 Pulse 93 H 06/15/19 12:14 Pulse 84 06/15/19 11:00 Respiratory Rate 20 06/15/19 12:14 Respiratory Effort Labored 06/15/19 09:30 Respiratory Depth Deep 06/15/19 09:30 Respiratory Pattern Tachypnea 06/15/19 09:30 Blood Pressure 142/81 H 06/15/19 10:01 Blood Pressure Mean 93 06/15/19 10:01 Blood Pressure Position Supine 06/14/19 03:56 Pulse Oximetry 93 L 06/15/19 12:14 Oxygen Delivery Method Hi Flow Nasal Cannula 06/15/19 12:13 Oxygen Flow Rate 40 06/15/19 12:13 Fraction of Inspired Oxygen (FIO2) 65 06/15/19 12:13 Pain Level 0 06/15/19 09:30 Intake & Output 06/14/19 06/15/19 06/15/19 23:59 11:59 23:59 Intake Total 1280 / 3133.75 470 / 830 360 / 830 Output Total 150 / 550 725 / 725 Balance 1130 / 2583.75 -255 / 105 360 / 105 Weight 87.5 kg Intake: IV 450 / 1763.75 350 / 350 Oral 830 / 1370 120 / 480 360 / 480 Output: Urine 150 / 550 725 / 725 Other: Urine Color Dark Talia Yellow Urine Appearance Clear Clear Urine Odor Strong Foul Comment Concentrated. Voiding Methods Urinal Urinal Laboratory Results WBC 14.09 k/cumm (4.4-10.8) H D 06/15/19 06:15 RBC 3.71 m/cumm (4.50-6.00) L 06/15/19 06:15 Hgb 11.6 g/dL (13.5-17.5) L 06/15/19 06:15 Hct 36.2 % (40.0-50.0) L 06/15/19 06:15 MCV 97.6 fL (80-95) H 06/15/19 06:15 MCH 31.3 pg (27.0-33.0) 06/15/19 06:15 MCHC 32.0 g/dL (32.0-36.0) 06/15/19 06:15 RDW 22.6 % (11.8-14.1) H 06/15/19 06:15 Plt Count 151 x1000/uL (130-400) 06/15/19 06:15 MPV 10.9 fL (8.0-11.0) 06/15/19 06:15 Immature Gran % 0.4 06/15/19 06:15 Neutrophils % 96.2 06/15/19 06:15 Lymphocytes % 1.3 06/15/19 06:15 Monocytes % 2.1 06/15/19 06:15 Eosinophils % 0.0 06/15/19 06:15 Basophils % 0.0 06/15/19 06:15 Absolute Neutrophils 13.55 k/cumm (1.2-6.7) H 06/15/19 06:15 Absolute Lymphocytes 0.18 k/cumm (1.2-3.4) L 06/15/19 06:15 Absolute Monocytes 0.30 k/cumm (0.11-0.7) 06/15/19 06:15 Absolute Eosinophils 0.00 k/cumm (0.0-0.7) 06/15/19 06:15 Absolute Basophils 0.00 k/cumm (0.0-0.2) 06/15/19 06:15 Differential Comment Rbc morph reviewed 06/15/19 06:15 RBC Morphology See below 06/15/19 06:15 Polychromasia Present 06/15/19 06:15 Poikilocytosis 1+ 06/15/19 06:15 Anisocytosis 1+ 06/15/19 06:15 Macrocytosis 1+ 06/15/19 06:15 Sample Site Left radial 06/13/19 08:45 pCO2 30 mmHg (34-47) L 06/13/19 08:45 pO2 144 mmHg (83-108) H 06/13/19 08:45 O2 Saturation % (94-98) 06/13/19 08:45 ABG pH 7.46 (7.35-7.45) H 06/13/19 08:45 ABG HCO3 21 mmol/L (22-28) L 06/13/19 08:45 ABG Total CO2 mmol/L (22-29) 06/13/19 08:45 ABG Base Excess -3.0 mmol/L (-3-3) 06/13/19 08:45 FiO2 60 % 06/13/19 08:45 Sodium 142 mmol/L (136-145) 06/15/19 06:15 Potassium 4.3 mmol/L (3.5-5.1) 06/15/19 06:15 Chloride 110 mmol/L (98-107) H 06/15/19 06:15 Carbon Dioxide 22.1 mmol/L (21.0-32.0) 06/15/19 06:15 Anion Gap 9.9 mmol/L (3-11) 06/15/19 06:15 BUN 35 mg/dL (7-18) H 06/15/19 06:15 Creatinine 0.81 mg/dL (0.70-1.30) 06/15/19 06:15 Estimated GFR/1.73 m2 >= 60.00 (mL/min/1.73m2) 06/15/19 06:15 Glucose 132 mg/dL (70-100) H 06/15/19 06:15 Calcium 8.7 mg/dL (8.5-10.1) 06/15/19 06:15 Magnesium 2.2 mg/dL (1.8-2.4) 06/15/19 06:15 Total Bilirubin 1.1 mg/dL (0.2-1.0) H 06/13/19 08:15 AST 21 U/L (15-37) 06/13/19 08:15 ALT 25 U/L (16-63) 06/13/19 08:15 Alkaline Phosphatase 102 U/L (46-116) 06/13/19 08:15 Troponin I 0.06 ng/mL (0.00-0.06) 06/13/19 08:15 NT-Pro-B Natriuret Pep 7783 pg/mL (-299) H 06/13/19 08:15 Total Protein 7.1 g/dL (6.4-8.2) 06/13/19 08:15 Albumin 3.2 g/dL (3.4-5.0) L 06/13/19 08:15 Vancomycin Trough 18.1 ug/mL (10.0-20.0) 06/15/19 05:10
[2019-06-15] MEDS: Normal Saline Flush 10 ML SYR IVP (19:42)
[2019-06-15] MEDS: traZODone 100 MG TAB PO (19:43)
[2019-06-16] VITALS (44 sets, daily range): BP systolic 126–178; BP diastolic 82–112; PULSE 67–103; RESP 1–23; TEMP 31–36.8; O2SAT 85–99
[2019-06-16] MEDS: CEFEPIME 2 GM in Normal Saline 100 ML IVPB (03:51)
[2019-06-16] MEDS: Pantoprazole 40 MG TABCR PO (06:52)
[2019-06-16 07:15] LABS: Abs Immature Grans 0.06 k/cumm (0.0-0.09); Absolute Basophil Count 0.01 k/cumm (0.0-0.2); Absolute Lymphocyte Count 0.29 k/cumm (1.2-3.4); Absolute Monocyte Count 0.49 k/cumm (0.11-0.7); Absolute Neutrophil Count 11.31 k/cumm (1.2-6.7); Basophils % 0.1; HCT 36.9 % (40.0-50.0); HGB 11.9 g/dL (13.5-17.5); Immature Grans % 0.5; Lymphocytes % 2.4; Mean Corp. HGB Concentration 32.2 g/dL (32.0-36.0); Mean Corpuscular Hemoglobin 31.5 pg (27.0-33.0); Mean Corpuscular Volume 97.6 fL (80-95); Mean Platelet Volume 10.2 fL (8.0-11.0); Platelet Count 160 x1000/uL (130-400); RBC 3.78 m/cumm (4.50-6.00); RBC Distribution Width 22.2 % (11.8-14.1); White Blood Cell Count 12.16 k/cumm (4.4-10.8)
[2019-06-16 07:22] LABS: BUN 24 mg/dL (7-18); CREATININE 0.78 mg/dL (0.70-1.30); Calcium 8.3 mg/dL (8.5-10.1); Chloride 108 mmol/L (98-107); Glucose 121 mg/dL (70-100); Potassium 3.8 mmol/L (3.5-5.1); Sodium 143 mmol/L (136-145)
[2019-06-16] MEDS: Sertraline 50 MG TAB 200 MG PO (08:07)
[2019-06-16] MEDS: methylPREDNISolone SUCC 40 MG VIAL IVP (08:07)
[2019-06-16] MEDS: Gabapentin 300 MG CAP 900 MG PO ×2 (08:08→19:05)
[2019-06-16] MEDS: Lisinopril 10 MG TAB PO (08:09)
[2019-06-16] MEDS: Aspirin 81 MG CHEW CH (08:09)
[2019-06-16] MEDS: Atorvastatin 40 MG TAB 80 MG PO (08:09)
[2019-06-16] MEDS: Celecoxib 200 MG CAP PO ×2 (08:09→19:05)
[2019-06-16] MEDS: Baclofen 10 MG TAB PO ×2 (08:10→19:04)
[2019-06-16] MEDS: LORazepam 1 MG TAB PO ×3 (08:10→19:04)
[2019-06-16] MEDS: Acetaminophen 500 MG TAB 1000 MG PO ×3 (08:10→19:04)
[2019-06-16] MEDS: Normal Saline Flush 10 ML SYR IVP ×3 (08:13→17:02)
[2019-06-16] MEDS: Albuterol/Ipratropium 3 ML UPD VIAL UPD ×4 (08:28→19:04)
[2019-06-16] MEDS: Budesonide 0.5 MG/2 ML UPD VIAL IH (08:41)
[2019-06-16] MEDS: Potassium Chloride 20 MEQ TABCR PO (10:11)
--- NOTE | 2019-06-16 11:22 | W.PM.PROGNOT ---
Date of Service Date of service: 06/16/19 Time of Service: 11:22 Assessment and Plan Assessment and plan (1) COPD (chronic obstructive pulmonary disease): Status: Chronic Assessment and plan: No current evidence of wheezing, good airflow, and symptomatically improved. - Continue Steroids but wean to oral prednisone today. Discontinue broad spectrum antibiotics and initiate oral doxycycline, and await finalized sputum cultures resultes. No infiltrate by imaging. - Continue standing duonebs. Palliative care discussed long-term plan at home with prn steroids and liquid morphine, which will be initiated at time of discharge. - Continue but attempt to wean high flow Oxygen as able. NIPPV as needed - patient tolerated CPAP overnight. - Palliative care consulted and following. Overall appears improved. (2) CAD (coronary artery disease): Status: Chronic Assessment and plan: History of BASILIO in 2016 to LAD, with demand related ischemia in the setting of hypoxia last admission. - Continue ASA, high potency statin. Continue NTG prn. Avoid BB given severity of COPD. - No evidence of wma's or depressed LVEF by recent ECHO. (3) Cor pulmonale: Status: Acute Assessment and plan: PHTN with PAP in the 60-70's range, with resultant evidence of RV dilation and impaired function. Continue treatment of underlying lung disease, and monitor fluid status. (4) Right-sided congestive heart failure: Status: Acute Assessment and plan: As above. (5) Squamous cell lung cancer: Status: Acute Assessment and plan: Previously on Chemo and XRT, following with [facility]. Currently receiving immunotherapy with Durvalumab, and is s/p Infusaport. (6) DVT prophylaxis: Status: Acute Assessment and plan: SC Enoxaparin. Also on PPI for GI Prophylaxis. (7) Advance directive discussed with patient: Status: Acute Assessment and plan: DNR/DNI (8) Discharge planning issues: Status: Acute Assessment and plan: PT Eval for discharge safety, potential procurement of specialized wheelchair for ambulation. Subjective Subjective Interval history since last seen: 68 year old man with a prior history of COPD and Lung Ca, admitted from [facility] Emergency Department on 06/13 with a diagnosis of Acute COPD Exacerbation. Mr. Ambrose has a Past Medical History significant for likely end-stage COPD on Home O2, and RUL NSCLCa diagnosed in January of 2019. 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 His other history includes A1 Antitrypsin Deficiciency (Heterozygous), CAD s/p BASILIO to LAD in 2015, Polyclonal Gammopathy, Bladder Ca s/p BCG injections in 2012, HTN, Cancer related pain on chronic opiate therapy, and GERD. He also reports a 100+ pack year history of tobacco use, started at approximately 9 years of age. ECHO performed last hospitalization showed evidence of Diastolic Dysfunction, PHTN with PAPs in the 70's, and RV dysfunction. The patient was recently admitted and treated for similiar symptoms between 05/20 and 05/26 - he was reportedly doing well and undergoing a steroid taper, when following a decrease in his steroid dose he bagan experiencing worsening dyspnea. In the ED he was found to initially require BiPAP therapy, and was started on IV Steroids and antibiotics and referred for admission. This morning Mr. Ambrose reports continued improvement and requesting to return home. Sputum Culture shows growth of a gram positive mita not yet speciated, with gram stain showing Moderate WBCs, with few GPR and rare GPC. Utilized CPAP overnight. No other events reported. Remains afebrile. Exam Narrative Exam Narrative: General: Appears chronically ill but non-toxic, AAOX3, NAD Neck: Supple CV: Regular, nontachycardic, S1S2, No rubs, murmurs, or gallops. Pulmonary: Clear to auscultation bilaterally with slight bibasilar crackles, no wheezing or rhonchi Abdomen: + Bowel Sounds, soft, nontender, nondistended Vascular: No lower extremity edema Psych: Normal mood and affect. Objective Objective Clinical Data: Abnormal lab results 06/16/19 06/16/19 Range/Units 06:15 06:15 WBC 12.16 H (4.4-10.8) k/cumm RBC 3.78 L (4.50-6.00) m/cumm Hgb 11.9 L (13.5-17.5) g/dL Hct 36.9 L (40.0-50.0) % MCV 97.6 H (80-95) fL RDW 22.2 H (11.8-14.1) % Absolute Neutrophils 11.31 H (1.2-6.7) k/cumm Absolute Lymphocytes 0.29 L (1.2-3.4) k/cumm Chloride 108 H (98-107) mmol/L BUN 24 H D (7-18) mg/dL Glucose 121 H (70-100) mg/dL Calcium 8.3 L (8.5-10.1) mg/dL Vital Signs Temperature 36.8 C 06/16/19 07:36 Temperature Source Temporal Artery Scan 06/16/19 07:36 Pulse 77 06/16/19 08:35 Pulse 82 06/16/19 08:35 Respiratory Rate 14 06/16/19 08:35 Respiratory Effort 06/16/19 07:36 Respiratory Depth Normal 06/16/19 07:36 Respiratory Pattern Normal 06/16/19 07:36 Blood Pressure 144/92 H 06/16/19 08:35 Blood Pressure Mean 104 06/16/19 08:35 Blood Pressure Position Sitting 06/16/19 07:36 Pulse Oximetry 89 L 06/16/19 08:35 Oxygen Delivery Method Hi Flow Nasal Cannula 06/16/19 07:36 Oxygen Flow Rate 40 06/16/19 09:16 Fraction of Inspired Oxygen (FIO2) 45 06/16/19 09:16 Pain Level 0 06/16/19 07:36 Intake & Output 06/15/19 06/15/19 06/16/19 11:59 23:59 11:59 Intake Total 720 / 2009 1290 / 2010 550 / 550 Output Total 725 / 1450 725 / 1450 2325 / 2325 Balance -5 / 560 565 / 560 -1775 / -1775 Weight 87.5 kg 85.4 kg Intake: IV 600 / 1050 450 / 1050 350 / 350 Oral 120 / 960 840 / 960 200 / 200 Output: Urine 725 / 1450 725 / 1450 2325 / 2325 Other: Urine Color Yellow Light Talia Yellow Urine Appearance Clear Clear Clear Urine Odor Foul Strong Comment Concentrated. Voiding Methods Urinal Urinal Urinal Laboratory Results WBC 12.16 k/cumm (4.4-10.8) H 06/16/19 06:15 RBC 3.78 m/cumm (4.50-6.00) L 06/16/19 06:15 Hgb 11.9 g/dL (13.5-17.5) L 06/16/19 06:15 Hct 36.9 % (40.0-50.0) L 06/16/19 06:15 MCV 97.6 fL (80-95) H 06/16/19 06:15 MCH 31.5 pg (27.0-33.0) 06/16/19 06:15 MCHC 32.2 g/dL (32.0-36.0) 06/16/19 06:15 RDW 22.2 % (11.8-14.1) H 06/16/19 06:15 Plt Count 160 x1000/uL (130-400) 06/16/19 06:15 MPV 10.2 fL (8.0-11.0) 06/16/19 06:15 Immature Gran % 0.5 06/16/19 06:15 Neutrophils % 93.0 06/16/19 06:15 Lymphocytes % 2.4 06/16/19 06:15 Monocytes % 4.0 06/16/19 06:15 Eosinophils % 0.0 06/16/19 06:15 Basophils % 0.1 06/16/19 06:15 Absolute Neutrophils 11.31 k/cumm (1.2-6.7) H 06/16/19 06:15 Absolute Lymphocytes 0.29 k/cumm (1.2-3.4) L 06/16/19 06:15 Absolute Monocytes 0.49 k/cumm (0.11-0.7) 06/16/19 06:15 Absolute Eosinophils 0.00 k/cumm (0.0-0.7) 06/16/19 06:15 Absolute Basophils 0.01 k/cumm (0.0-0.2) 06/16/19 06:15 Differential Comment Rbc morph reviewed 06/15/19 06:15 RBC Morphology See below 06/15/19 06:15 Polychromasia Present 06/15/19 06:15 Poikilocytosis 1+ 06/15/19 06:15 Anisocytosis 1+ 06/15/19 06:15 Macrocytosis 1+ 06/15/19 06:15 Sample Site Left radial 06/13/19 08:45 pCO2 30 mmHg (34-47) L 06/13/19 08:45 pO2 144 mmHg (83-108) H 06/13/19 08:45 O2 Saturation % (94-98) 06/13/19 08:45 ABG pH 7.46 (7.35-7.45) H 06/13/19 08:45 ABG HCO3 21 mmol/L (22-28) L 06/13/19 08:45 ABG Total CO2 mmol/L (22-29) 06/13/19 08:45 ABG Base Excess -3.0 mmol/L (-3-3) 06/13/19 08:45 FiO2 60 % 06/13/19 08:45 Sodium 143 mmol/L (136-145) 06/16/19 06:15 Potassium 3.8 mmol/L (3.5-5.1) 06/16/19 06:15 Chloride 108 mmol/L (98-107) H 06/16/19 06:15 Carbon Dioxide 26.0 mmol/L (21.0-32.0) 06/16/19 06:15 Anion Gap 9.0 mmol/L (3-11) 06/16/19 06:15 BUN 24 mg/dL (7-18) H D 06/16/19 06:15 Creatinine 0.78 mg/dL (0.70-1.30) 06/16/19 06:15 Estimated GFR/1.73 m2 >= 60.00 (mL/min/1.73m2) 06/16/19 06:15 Glucose 121 mg/dL (70-100) H 06/16/19 06:15 Calcium 8.3 mg/dL (8.5-10.1) L 06/16/19 06:15 Magnesium 2.0 mg/dL (1.8-2.4) 06/16/19 06:15 Total Bilirubin 1.1 mg/dL (0.2-1.0) H 06/13/19 08:15 AST 21 U/L (15-37) 06/13/19 08:15 ALT 25 U/L (16-63) 06/13/19 08:15 Alkaline Phosphatase 102 U/L (46-116) 06/13/19 08:15 Troponin I 0.06 ng/mL (0.00-0.06) 06/13/19 08:15 NT-Pro-B Natriuret Pep 7783 pg/mL (-299) H 06/13/19 08:15 Total Protein 7.1 g/dL (6.4-8.2) 06/13/19 08:15 Albumin 3.2 g/dL (3.4-5.0) L 06/13/19 08:15 Vancomycin Trough 18.1 ug/mL (10.0-20.0) 06/15/19 05:10
[2019-06-16] MEDS: fentaNYL 25 MCG PATCH TD (11:46)
[2019-06-16] MEDS: Enoxaparin 40 MG/0.4 ML SYR SC (11:47)
[2019-06-16] MEDS: Patch Removal 1 EACH TP (12:00)
--- NOTE | 2019-06-16 15:28 | W.PALPGNOTE ---
Date of service: 06/16/19 Time of Service: 06:28 Assessment and Plan Assessment and plan (1) Fracture closed, sternum: Status: Acute (2) Acute and chronic respiratory failure with hypoxia: Status: Acute Assessment and plan: He is getting better daily. He is in hopes of going home soon I would recommend that he is tried on some oral morphine when he gets anxious or when he gets short of breath so that he can try it while hospitalized versus having it for the first time at home without medical personnel around. I think if he is more comfortable with the morphine and can appreciate the good effects that it has been he will be less reluctant to use it Hypertension still present today. Per nursing this is been pretty steady Uncertain if he is going home on the high flow oxygen. I know he did not qualify last time. I hope he does this time. When the sputum results come back then he will be able to transfer from IV to p.o. antibiotics I would recommend that he transition from IV Solu-Medrol to p.o. prednisone. He will need a prednisone taper when he goes home. I do not think he should go below 20 mg of prednisone daily from past experience this is when he gets into trouble We will continue to follow This document was created by [employer] recognition and may contain grammatical and translation errors. (3) Pulmonary hypertension: Status: Acute Subjective Subjective Interval history since last seen: Patient is sitting by the side of the bed. He states that he is feeling much better. Nursing states that his blood pressures have been high. He has very little reserve and will desat with movement. All in all he is feeling better Exam Narrative Exam Narrative: He is sitting by the side of the bed eating his breakfast. He states he is hungry. He states every day he feels stronger. Const General: cooperative and no acute distress Nutritional Appearance: thin Orientation: oriented x3 Eyes General: appearance normal, both eyes and all related structures Resp Effort & Inspection: able to speak in complete sentences, cough and uses accessory muscles Auscultation: bronchovesicular breath sounds Cardio Rhythm: regular rhythm Psych Appearance: grossly normal Mental Status: mental status grossly normal Speech and Movement: speech clear Mood: congruent mood Affect: anxious affect Attitude: cooperative Thought Process: normal Objective Objective Clinical Data: Abnormal lab results 06/16/19 06/16/19 Range/Units 06:15 06:15 WBC 12.16 H (4.4-10.8) k/cumm RBC 3.78 L (4.50-6.00) m/cumm Hgb 11.9 L (13.5-17.5) g/dL Hct 36.9 L (40.0-50.0) % MCV 97.6 H (80-95) fL RDW 22.2 H (11.8-14.1) % Absolute Neutrophils 11.31 H (1.2-6.7) k/cumm Absolute Lymphocytes 0.29 L (1.2-3.4) k/cumm Chloride 108 H (98-107) mmol/L BUN 24 H D (7-18) mg/dL Glucose 121 H (70-100) mg/dL Calcium 8.3 L (8.5-10.1) mg/dL Vital Signs Temperature 98.2 F 06/16/19 07:36 Temperature Source Temporal Artery Scan 06/16/19 07:36 Pulse 87 06/16/19 12:41 Pulse 93 H 06/16/19 12:02 Respiratory Rate 20 06/16/19 12:41 Respiratory Effort 06/16/19 07:36 Respiratory Depth Normal 06/16/19 07:36 Respiratory Pattern Normal 06/16/19 07:36 Blood Pressure 126/82 06/16/19 12:02 Blood Pressure Mean 93 06/16/19 12:02 Blood Pressure Position Sitting 06/16/19 07:36 Pulse Oximetry 92 L 06/16/19 12:41 Oxygen Delivery Method Aerosol Mask 06/16/19 12:41 Oxygen Flow Rate 50 06/16/19 13:43 Fraction of Inspired Oxygen (FIO2) 36 06/16/19 13:43 Pain Level 0 06/16/19 07:36 Intake & Output 06/15/19 06/16/19 06/16/19 23:59 11:59 23:59 Intake Total 1289 / 2009 550 / 890 340 / 890 Output Total 725 / 1450 2325 / 2325 Balance 565 / 560 -1775 / -1435 340 / -1435 Weight 188 lb 4.396 oz Intake: IV 450 / 1050 350 / 450 100 / 450 Oral 840 / 960 200 / 440 240 / 440 Output: Urine 725 / 1450 2325 / 2325 Other: Urine Color Light Talia Yellow Urine Appearance Clear Clear Urine Odor Strong Voiding Methods Urinal Urinal Laboratory Results WBC 12.16 k/cumm (4.4-10.8) H 06/16/19 06:15 RBC 3.78 m/cumm (4.50-6.00) L 06/16/19 06:15 Hgb 11.9 g/dL (13.5-17.5) L 06/16/19 06:15 Hct 36.9 % (40.0-50.0) L 06/16/19 06:15 MCV 97.6 fL (80-95) H 06/16/19 06:15 MCH 31.5 pg (27.0-33.0) 06/16/19 06:15 MCHC 32.2 g/dL (32.0-36.0) 06/16/19 06:15 RDW 22.2 % (11.8-14.1) H 06/16/19 06:15 Plt Count 160 x1000/uL (130-400) 06/16/19 06:15 MPV 10.2 fL (8.0-11.0) 06/16/19 06:15 Immature Gran % 0.5 06/16/19 06:15 Neutrophils % 93.0 06/16/19 06:15 Lymphocytes % 2.4 06/16/19 06:15 Monocytes % 4.0 06/16/19 06:15 Eosinophils % 0.0 06/16/19 06:15 Basophils % 0.1 06/16/19 06:15 Absolute Neutrophils 11.31 k/cumm (1.2-6.7) H 06/16/19 06:15 Absolute Lymphocytes 0.29 k/cumm (1.2-3.4) L 06/16/19 06:15 Absolute Monocytes 0.49 k/cumm (0.11-0.7) 06/16/19 06:15 Absolute Eosinophils 0.00 k/cumm (0.0-0.7) 06/16/19 06:15 Absolute Basophils 0.01 k/cumm (0.0-0.2) 06/16/19 06:15 Differential Comment Rbc morph reviewed 06/15/19 06:15 RBC Morphology See below 06/15/19 06:15 Polychromasia Present 06/15/19 06:15 Poikilocytosis 1+ 06/15/19 06:15 Anisocytosis 1+ 06/15/19 06:15 Macrocytosis 1+ 06/15/19 06:15 Sample Site Left radial 06/13/19 08:45 pCO2 30 mmHg (34-47) L 06/13/19 08:45 pO2 144 mmHg (83-108) H 06/13/19 08:45 O2 Saturation % (94-98) 06/13/19 08:45 ABG pH 7.46 (7.35-7.45) H 06/13/19 08:45 ABG HCO3 21 mmol/L (22-28) L 06/13/19 08:45 ABG Total CO2 mmol/L (22-29) 06/13/19 08:45 ABG Base Excess -3.0 mmol/L (-3-3) 06/13/19 08:45 FiO2 60 % 06/13/19 08:45 Sodium 143 mmol/L (136-145) 06/16/19 06:15 Potassium 3.8 mmol/L (3.5-5.1) 06/16/19 06:15 Chloride 108 mmol/L (98-107) H 06/16/19 06:15 Carbon Dioxide 26.0 mmol/L (21.0-32.0) 06/16/19 06:15 Anion Gap 9.0 mmol/L (3-11) 06/16/19 06:15 BUN 24 mg/dL (7-18) H D 06/16/19 06:15 Creatinine 0.78 mg/dL (0.70-1.30) 06/16/19 06:15 Estimated GFR/1.73 m2 >= 60.00 (mL/min/1.73m2) 06/16/19 06:15 Glucose 121 mg/dL (70-100) H 06/16/19 06:15 Calcium 8.3 mg/dL (8.5-10.1) L 06/16/19 06:15 Magnesium 2.0 mg/dL (1.8-2.4) 06/16/19 06:15 Total Bilirubin 1.1 mg/dL (0.2-1.0) H 06/13/19 08:15 AST 21 U/L (15-37) 06/13/19 08:15 ALT 25 U/L (16-63) 06/13/19 08:15 Alkaline Phosphatase 102 U/L (46-116) 06/13/19 08:15 Troponin I 0.06 ng/mL (0.00-0.06) 06/13/19 08:15 NT-Pro-B Natriuret Pep 7783 pg/mL (-299) H 06/13/19 08:15 Total Protein 7.1 g/dL (6.4-8.2) 06/13/19 08:15 Albumin 3.2 g/dL (3.4-5.0) L 06/13/19 08:15 Vancomycin Trough 18.1 ug/mL (10.0-20.0) 06/15/19 05:10
--- NOTE | 2019-06-16 15:55 | NUR.NOTE ---
Pt expected to discharge home tomorrow, Manuel Turpin requested port de-accessed w/2 ns syringes (20mls total) and 500units heparin as concentration of 100unit/ml
--- NOTE | 2019-06-16 16:16 | IN_ITS ---
Date of service: 06/16/19 Time of Service: 11:09 PT Notes Inpatient Physical Therapy Evaluation Date: 06/16/2019 Referring Doctor: Umair Dyer MD PT Orders: PT CONSULT: May require 4 wheeled walker with seat? Precautions: Fall. Standard. Patient Profile/Admitting Diagnosis: Patient is a 68 year old male admitted to the intensive care unit with severe COPD, and squamous cell lung cancer. PMHX: Medical History Chronic low back pain COPD (chronic obstructive pulmonary disease) Essential hypertension GERD (gastroesophageal reflux disease) MEGAN on CPAP Social History/Home Situation: Patient lives at home with his , who in conjunction with his daughter oversees his care. Equipment Owned/DME: No assistive device currently. Requires supplemental oxygen. Subjective: Patient denies having any pain and at rest has no shortness of breath. He does not report headache, dizziness, lightheadedness, and is agreeable to PT evaluation to fit a 4WW. Objective: General Observation: Patient is seen seated in chair with SaO2 monitor and IV in port on L UE, and Hi-Flow O2. Mental Status: Alert and oriented x 4 Pain: 0/10 Vital Signs: SaO2 ranging from 69-91% at rest with 10L/min. 86% during ambulat ion with 10L/min. ROM: Right Lower Extremity: Hip flexion WFL. Hip abduction WFL. Knee flexion WFL. Ankle dorsiflexion WFL. Ankle plantarflexion WFL. Left Lower Extremity: Hip flexion WFL. Hip abduction WFL. Knee flexion WFL. Ankle dorsiflexion WFL. Ankle plantarflexion WFL. Strength: Right Lower Extremity: Hip flexors 4/5. Hip abductors 5/5. Knee flexors 4/5. Knee extensors 5/5. Ankle dorsiflexors 5/5. Ankle plantarflexors 5/5. Left Lower Extremity: Hip flexors 4/5. Hip abductors 5/5. Knee flexors 4/5. Knee extensors 5/5. Ankle dorsiflexors 5/5. Ankle plantarflexors 5/5. Bed Mobility/Transfers: Rolling I Supine to sit I Sit to supine I Sit to stand I Stand to sit I Bed to chair I Chair to bed I Gait: Patient ambulated 50? using reciprocal gait FWW, and SBA with 10L/min of O2. He was instructed to slow his gait speed and try not to talk during ambulation in an attempt to maintain is SaO2. Balance: Static Sitting: Normal Dynamic Sitting: Normal Static Standing: Normal Dynamic Standing: Fair Special Tests: Mobility Limitations Standardized Measure [facility] AM-PAC 6 clicks Basic Mobility Inpatient Short Form: Raw Score: 22 CMS Score: 26% Informed Consent/Education: Patient instructed in purpose of PT consult and plan of care. Assessment: Patient is a 68-year-old male admitted to the ICU with severe COPD and squamous cell lung cancer. He lives at home with his in [facility], and is on a continuous flow of supplemental oxygen. He is severely deconditioned, evident by his dyspnea with ambulation. He was assessed for a 4WW which should be used at all times during ambulation and take frequent breaks as needed. Patient presents with clinical signs and symptoms consistent with current/admitting diagnoses that have resulted to mobility limitations, gait instability, generalized weakness, and impairment of motor control as demonstrated by the following impairment level findings: 1. Decreased strength to B LE major muscle groups 2. Impaired activity tolerance Impairments are contributing to the following functional limitations: 1. Inability to safely ambulate without assistive device and physical assistance 2. Increase completion time for mobility ADL performance 3. Increased fall risk 4. Inability to negotiate steps alone safely Patient is assessed as a high complexity based on the following: History: 68-year-old male with coronary artery disease acute and chronic respiratory failure with hypoxia Examination: Demonstrable impairment in strength, balance, and range of motion with underlying impairments and functional limitations as documented above Presentation: Evolving Decision Makin high complexity Goals: Goals X1 week 1. Patient will comprehend concepts associated with safe ambulation using a 4WW. 2. Patient will ambulate 50? with 4WW and maintain SaO2 to above 89% %. Plan of Care/Treatment Plan: N/A. Patient is evaluation only for assessment of an assistive ambulatory device to maximize independence and activity tolerance DISCHARGE RECOMMENDATIONS: Patient will be discharged to home with a 4WW under the care of his as of today. Patient will benefit from home health PT services in order to progress mobility level using prescribed ambulatory device, assess home safety, identify additional equipment needs, and establish a functional maintenance program that will increase ability of patient to remain at home. TREATMENT CODE/TIME: 85531 x 25 minutes beginning at 11:09 AM. Thank you very much for this referral. Amador Acevedo [facility] With the supervision of: Renae Warren PT, DPT, CLT [facility]
[2019-06-16] MEDS: Heparin 500 UNITS/5 ML SYRINGE IVP (17:02)
--- NOTE | 2019-06-16 18:24 | CMPROGNOTE_ITS ---
- If Service Date Differs Date of service: 06/16/19 Time of Service: 18:24 Care Management Progress Note S/O:Simone is alert he was able to be assessed by PT today and qualifies for a 4WW, CM faxed all paperwork to [facility], waiting confirmation and delivery of the equipment. Hopeful this will help him at home be more mobile around the house and allow a seat for periods of rest when short of breath. met with patient today and they have a plan for his care at home including his oral steroid needs. RT is assisting in coordinating his plan for increase resp support at home.Simone will need home health resumption of service order at time of discharge for Nursing and PT. A: Simone is a 68 year old male admitted with Acute COPD, acute on chronic hypoxia P:Simone will return home with his family when he is medically ready. Resumption of home health services PT and nursing. 4WW coordinated by CM though [facility]. He will continue to follow up with palliative care and oncology.
[2019-06-16] MEDS: Doxycycline Hyclate 100 MG CAP PO (19:04)
[2019-06-16] MEDS: predniSONE 20 MG TAB 40 MG PO (19:04)
[2019-06-16] MEDS: traZODone 100 MG TAB PO (19:05)
--- NOTE | 2019-06-16 19:50 | NUR.NOTE ---
At approx 1850 patient suddenly got out of his chair and attempted to leave room while still attached to monitor. Wall oxygen was around his neck and pulling out from wall. After getting patient back to bed, this nurse questioned him and found him to be confused, a marked change from his earlier mentation. Patient knew he was in the hospital, correctly identified the day and time of day, but maintained bizarre notions that he needed to get that chair from the other room and asked if we were going to take that away - gesturing to the wall panel of suction and 02, saying it was a bad design and was bothering him. I questioned his spouse about sundowning behavior at home and she reported that he sometimes gets over energized at home at night, but wasn't clear this was actually unusual behavior for him. 02 sat was noted to be in the 70's during this episode, unclear if this was due to his activity, jumping up and ambulating etc, or whether he had become hypoxic which caused the confusion. I was able to re-direct him, get him back into bed, administer his evening medications (which included ativan) and he is currently resting quietly.
[2019-06-17] VITALS (16 sets, daily range): BP systolic 136–178; BP diastolic 81–118; PULSE 73–100; RESP 1–21; TEMP 31–36.8; O2SAT 88–98
[2019-06-17 06:24] LABS: Abs Immature Grans 0.11 k/cumm (0.0-0.09); Absolute Basophil Count 0.01 k/cumm (0.0-0.2); Absolute Lymphocyte Count 0.22 k/cumm (1.2-3.4); Absolute Neutrophil Count 9.31 k/cumm (1.2-6.7); Basophils % 0.1; HCT 38.5 % (40.0-50.0); HGB 12.7 g/dL (13.5-17.5); Immature Grans % 1.1; Lymphocytes % 2.2; Mean Corpuscular Hemoglobin 31.6 pg (27.0-33.0); Mean Corpuscular Volume 95.8 fL (80-95); Mean Platelet Volume 9.5 fL (8.0-11.0); Monocytes % 4.9; Neutrophils % 91.7; Platelet Count 182 x1000/uL (130-400); RBC 4.02 m/cumm (4.50-6.00); RBC Distribution Width 21.4 % (11.8-14.1); White Blood Cell Count 10.15 k/cumm (4.4-10.8)
[2019-06-17 06:27] LABS: Anisocytosis 2+; Diff Comment RBC Morph Reviewed
[2019-06-17 06:32] LABS: Anion Gap 7.3 mmol/L (3-11); BUN 29 mg/dL (7-18); CO2 26.7 mmol/L (21.0-32.0); CREATININE 0.83 mg/dL (0.70-1.30); Calcium 8.5 mg/dL (8.5-10.1); Chloride 106 mmol/L (98-107); Glucose 119 mg/dL (70-100); Potassium 4.3 mmol/L (3.5-5.1); Sodium 140 mmol/L (136-145)
[2019-06-17 06:35] LABS: Tear Drop Cells 2+
[2019-06-17] MEDS: Albuterol/Ipratropium 3 ML UPD VIAL UPD ×2 (07:51→12:41)
[2019-06-17] MEDS: Doxycycline Hyclate 100 MG CAP PO (07:57)
[2019-06-17] MEDS: Sertraline 50 MG TAB 200 MG PO (07:57)
[2019-06-17] MEDS: Lisinopril 10 MG TAB PO (07:57)
[2019-06-17] MEDS: Aspirin 81 MG CHEW CH (07:57)
[2019-06-17] MEDS: Gabapentin 300 MG CAP 900 MG PO (07:58)
[2019-06-17] MEDS: Atorvastatin 40 MG TAB 80 MG PO (07:58)
[2019-06-17] MEDS: Celecoxib 200 MG CAP PO (07:58)
[2019-06-17] MEDS: predniSONE 20 MG TAB 40 MG PO (07:58)
[2019-06-17] MEDS: Pantoprazole 40 MG TABCR PO (07:58)
[2019-06-17] MEDS: Acetaminophen 500 MG TAB 1000 MG PO ×2 (07:59→15:18)
[2019-06-17] MEDS: Baclofen 10 MG TAB PO (07:59)
[2019-06-17] MEDS: LORazepam 1 MG TAB PO ×2 (07:59→15:18)
[2019-06-17] MEDS: Budesonide 0.5 MG/2 ML UPD VIAL IH (08:22)
--- NOTE | 2019-06-17 14:04 | W.PM.DS.N ---
Date of service: 06/17/19 Time of Service: 14:05 DS: Diagnosis Discharge Diagnosis (1) Acute and chronic respiratory failure with hypoxia: Status: Acute (2) Acute exacerbation of chronic obstructive pulmonary disease (COPD): Status: Acute Discharge Plan Disposition Patient Disposition: HOME W/HOME HEALTH SERVICE Condition: Stable Discharge Details Chief Complaint: RespSymp Clinical Impression: Acute exacerbation of chronic obstructive pulmonary disease (COPD) Reason For Visit: ACUTE EXACERBATION OF COPD, ACUTE ON CHRONIC HYPOX Admit Date/Time: 06/13/19 10:37 Admit Provider: Daniela Ashley Attending Provider: Daniela Ashley Primary Care Provider: Malka Sandhu ED Provider: Deep Whitaker Hospital Course Hospital Course: Chief Complaint: Dyspnea HPI: 68 year old man with a prior history of COPD and Lung Ca, admitted from [facility] Emergency Department on 06/13 with a diagnosis of Acute COPD Exacerbation. Mr. Ambrose has a Past Medical History significant for likely end-stage COPD on Home O2, and RUL NSCLCa diagnosed in January of 2019. 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 His other history includes A1 Antitrypsin Deficiciency (Heterozygous), CAD s/p BASILIO to LAD in 2015, Polyclonal Gammopathy, Bladder Ca s/p BCG injections in 2012, HTN, Cancer related pain on chronic opiate therapy, and GERD. He also reports a 100+ pack year history of tobacco use, started at approximately 9 years of age. ECHO performed last hospitalization showed evidence of Diastolic Dysfunction, PHTN with PAPs in the 70's, and RV dysfunction. The patient was recently admitted and treated for similiar symptoms between 05/20 and 05/26 - he was reportedly doing well and undergoing a steroid taper, when following a decrease in his steroid dose he bagan experiencing worsening dyspnea. In the ED he was found to initially require BiPAP therapy, and was started on IV Steroids and antibiotics and referred for admission. This morning Mr. Ambrose reports continued improvement and requesting to return home. Sputum Culture shows growth of a gram positive mita not yet speciated, with gram stain showing Moderate WBCs, with few GPR and rare GPC. Has utilized CPAP overnight with good success, and remains on High Flow Oxygen currently being weaned down. No other events reported. Remains afebrile. Hospital Course: (1) COPD (chronic obstructive pulmonary disease): No current evidence of wheezing, good airflow, and symptomatically improved. - Continue Steroids and plan on a lengthy and slow wean. Patient's symptoms began when attempting to decrease from 20 to 10mg of prednisone at home as part of the taper from his prior hospitalization. Discontinued broad spectrum antibiotics and initiated oral doxycycline, and patient continues to do well and has remained afebrile. Need to follow-up finalized sputum cultures after discharge - no infiltrate by imaging. Palliative care discussed long-term plan at home with prn steroids and liquid morphine, which will be initiated at time of discharge. Have obtained High flow oxygen system for home use, with education regarding use and Oxygen weaned as low as currently possible. Continue CPAP as needed as well. (2) CAD (coronary artery disease): History of BASILIO in 2016 to LAD, with demand related ischemia in the setting of hypoxia last admission. - Continue ASA, high potency statin. Continue NTG prn. Avoid BB given severity of COPD. - No evidence of wma's or depressed LVEF by recent ECHO. (3) Cor pulmonale: PHTN with PAP in the 60-70's range, with resultant evidence of RV dilation and impaired function. Continue treatment of underlying lung disease, and monitor fluid status. (4) Right-sided congestive heart failure: As above. (5) Squamous cell lung cancer: Previously on Chemo and XRT, following with [facility]. Currently receiving immunotherapy with Durvalumab, and is s/p Infusaport. (6) DVT prophylaxis: Was maintained on SC Enoxaparin. Also on PPI for GI Prophylaxis. (7) Advance directive discussed with patient: DNR/DNI (8) Discharge planning issues: PT Eval for discharge safety, with recommendations for procurement of specialized wheelchair for ambulation - to be delivered to patient's home. He was also be discharged with Home Health for PT/OT, and VNA. Home Meds and New Rx's Prescriptions: New doxycycline hyclate 100 mg Capsule 100 mg PO BID Qty: 3 RF: 0 pantoprazole 40 mg Tablet,Delayed Release (Dr/Ec) 40 mg PO DAILY@0730 Qty: 30 RF: 0 prednisone 10 mg tablet 10 mg PO DAILY Qty: 69 RF: 0 Continued (DME) Oxygen Tank See Rx Instructions .ROUTE .MEDSUPPLY Qty: 1 RF: 0 prochlorperazine maleate [Compazine] 10 mg tablet 10 mg PO Q6H PRN RF: 0 celecoxib 200 mg capsule 200 mg PO BID Qty: 60 RF: 6 acetaminophen 500 mg tablet 1,000 mg PO TID RF: 0 fentanyl 25 mcg/hr patch 72 hour 1 patch TD Q72H MDD 1 Qty: 10 RF: 0 ranitidine HCl [Zantac Maximum Strength] 150 mg tablet 150 mg PO BID PRNRF: 0 sertraline 100 mg tablet 200 mg PO DAILY Qty: 180 RF: 4 morphine concentrate 100 mg/5 mL (20 mg/mL) solution See Rx Instructions SL Q1H PRN MDD 5mL PRN (Reason: pain) Qty: 30 RF: 0 ASPIRIN 81 MG tablet 1 tab PO DAILY RF: 0 albuterol sulfate [ProAir HFA] 8.5 GM HFA aerosol inhaler 1 - 2 puff Inhalation QID PRNQty: 2 RF: 6 nitroglycerin 0.4 MG tablet, sublingual 0.4 mg Sublingual Q6H PRN PRNQty: 25 RF: 0 trazodone 100 mg tablet 100 mg PO DAILY Qty: 90 RF: 4 baclofen 10 mg tablet 10 mg PO BID Qty: 180 RF: 3 atorvastatin 80 mg tablet 80 mg PO DAILY Qty: 90 RF: 4 gabapentin 300 mg capsule 900 mg PO BID Qty: 540 RF: 5 ipratropium-albuterol 0.5 mg-3 mg(2.5 mg base)/3 mL Solution For Nebulization 3 ml INHALATION QID RF: 0 budesonide 0.5 mg/2 mL Suspension For Nebulization 0.5 mg INHALATION DAILY RF: 0 lisinopril 10 mg Tablet 10 mg PO DAILY Qty: 90 RF: 3 lorazepam 1 mg tablet 1 mg PO TID MDD 4 RF: 0 Discontinued prednisone 10 mg tablet 5 mg PO DAILY RF: 0 prednisone 20 mg tablet 80 mg PO ONCE Qty: 8 RF: 0 levofloxacin 750 mg tablet 750 mg PO Q24H Qty: 7 RF: 0 Discharge Instructions Additional Instructions: Please see your PCP within 1 week of discharge Activity:: No strenuous activity Equipment/Supplies:: No Equipment Needed Diet:: As Tolerated Discharge Orders Discharge Orders: Discharge Order (Routine); Ordered 10/01/19 Ordered By: Umair Dyer DS: Summary Status at Discharge Functional status at discharge: independent ambulation Overall status at discharge: patient is back to baseline Mental Status: mental status grossly normal Speech and Movement: speech and movement normal Mood: congruent mood Affect: normal affect Exam Psych Mental Status: mental status grossly normal Speech and Movement: speech and movement normal Mood: congruent mood Affect: normal affect DS: Data Vitals/I&O Vitals and I&O: Vital Signs Temperature 36.8 C 06/17/19 03:30 Temperature Source Temporal Artery Scan 06/17/19 07:19 Pulse 96 H 06/17/19 12:49 Pulse Rhythm Regular 06/17/19 07:45 Pulse 96 H 06/17/19 11:49 Respiratory Rate 20 06/17/19 12:49 Respiratory Effort 06/17/19 07:45 Respiratory Depth Shallow 06/17/19 07:45 Respiratory Pattern Normal 06/17/19 07:45 Blood Pressure 144/91 H 06/17/19 11:49 Blood Pressure Mean 105 06/17/19 11:49 Blood Pressure Position Sitting 06/16/19 07:36 Pulse Oximetry 94 L 06/17/19 12:49 Oxygen Delivery Method Hi Flow System 06/17/19 12:41 Oxygen Flow Rate 30 06/17/19 12:41 Fraction of Inspired Oxygen (FIO2) 50 06/17/19 12:41 Pain Level 36 06/17/19 07:19 Comment 06/16/19 19:20 Intake & Output 06/16/19 06/17/19 06/17/19 23:59 11:59 23:59 Intake Total 730 / 1280 240 / 240 Output Total 200 / 2525 1480 / 1480 Balance 530 / -1245 -1480 / -1240 240 / -1240 Weight 85 kg Intake: IV 100 / 450 Oral 630 / 830 240 / 240 Output: Urine 200 / 2525 1480 / 1480 Other: Urine Color Dark Talia Yellow Urine Appearance Clear Clear Urine Odor Strong Normal Voiding Methods Urinal Urinal Data Completed and Pending Completed studies during hospitalization [Text1]: Exam(s) a RAD:XR portable chest AP EXAM: XR PORTABLE CHEST AP INDICATION: COPD, SOB. COMPARISON: XR shoulder RT complete 2+V from 11/13/2018 XR CHEST 2V PA LATERAL from 11/13/2018 CT CHEST W from 03/31/2019 TECHNIQUE: 2D digital imaging was performed. FINDINGS: The patient reportedly has a history of metastatic lung carcinoma. There are severe changes of bullous emphysema and pulmonary fibrosis. Comparison with previous chest radiograph of 11/13/2018 shows some increased prominence of the pulmonary interstitial radiodensities. The findings could represent CHF versus lymphangitic spread of tumor. Small right pleural effusion is noted. Left Port-A-Cath in position with its tip overlying the SVC. IMPRESSION: Interval increase in pulmonary interstitial markings, CHF versus lymphangitic spread of known metastatic lung carcinoma Exam(s) a CT:CT chest wo EXAM: CT CHEST WO CLINICAL HISTORY: lung cancer, COPD, dyspneic.. TECHNIQUE: COMPARISON: CT CHEST W from 03/31/2019 FINDINGS: CT examination of the chest was performed without contrast administration. Examination is compared with prior chest CT of March 31. A retrosternal mass consistent with the patient's diagnosis of lung carcinoma is noted to be cavitating and smaller in size in comparison with the previous examination. Interval development of a sternal fracture, mildly displaced, is noted, since the previous examination presumably cysts secondary to direct invasion by adjacent tumor. Trace pericardial effusion again noted. Nonspecific lymph nodes again present in the mediastinum, no gross interval change. Right hilar mass less prominent than on previous examination. No gross new focal consolidation seen. No pleural effusion seen. Visualized portions of liver and spleen are unremarkable. IMPRESSION: Conclusion interval regression of right hilar mass and decreased size and cavitation of anterior mediastinal mass since previous examination of March 31. Interval fracture of the sternum noted presumably secondary to direct invasion by tumor. No evidence of acute intrapulmonary consolidation to suggest infectious process Labs on day of discharge: Labs from last 24 hours 06/17/19 06/17/19 06:10 06:10 WBC 10.15 RBC 4.02 L Hgb 12.7 L Hct 38.5 L MCV 95.8 H MCH 31.6 MCHC 33.0 RDW 21.4 H Plt Count 182 MPV 9.5 Immature Gran % 1.1 Neutrophils % 91.7 Lymphocytes % 2.2 Monocytes % 4.9 Eosinophils % 0.0 Basophils % 0.1 Absolute Neutrophils 9.31 H Absolute Lymphocytes 0.22 L Absolute Monocytes 0.50 Absolute Eosinophils 0.00 Absolute Basophils 0.01 Differential Comment Rbc morph reviewed RBC Morphology See below Anisocytosis 2+ Tear Drop Cells 2+ Sodium 140 Potassium 4.3 Chloride 106 Carbon Dioxide 26.7 Anion Gap 7.3 BUN 29 H Creatinine 0.83 Estimated GFR/1.73 m2 >= 60.00 Glucose 119 H Calcium 8.5 Magnesium 2.0 Preliminary micro results at discharge 06/14/19 07:00 Sputum Culture - Preliminary Sputum Enterococcus Species Normal Mita [facility] Medical History Chronic low back pain COPD (chronic obstructive pulmonary disease) Essential hypertension GERD (gastroesophageal reflux disease) MEGAN on CPAP Family History Daughter No problems noted. Son No problems noted. Mother Aneurysm Father Aortic aneurysm Social History Smoking/Tobacco Use Status: Former Tobacco Use Quit Date: 09/17/17 Alcohol Intake: former Drug use: Never Substance use type: does not use Household members: significant other Housing: house Pets and animals: Yes ([facility]) Pets and animals: cat(s) Do you feel safe at home: Yes Do you feel safe in your relationship?: Yes
--- NOTE | 2019-06-17 15:05 | PDOC.HHF2F_ITS ---
Home Health Certification Home Health Certification: 1. Encounter Date and Reason I certify that JOSE BISHOP was seen by Umair Dyer on 06/17/19 and that I had a [id number] encounter with this patient that meets the physician face to face encounter requirements. 2. Clinical Findings Supporting Skilled Need and Homebound Status I certify that home health services are medically necessary, include either intermittent intermediate and/or physical/speech therapy, and that this patient is homebound in that absences from the home require considerable and taxing effort and are infrequent or of short duration, or are attributable to the need to receive medical care. [X] (a) Attached documentation from encounter provides clinical findings supporting skilled need and homebound status (including what assistance patient requires to leave the home). The encounter with the patient was in whole, or in part, for the following medical condition, which is the primary reason for home health care: ACUTE EXACERBATION OF COPD, ACUTE ON CHRONIC HYPOX Residential: Steroid taper, new high flow oxygen use. Monitor medical condition and assist with medication administration. Physical Therapy/Occupational Therapy: Speech Therapy: Homebound: 3. Certification and Authentication I certify that I composed the above information based on my clinical judgement relating to this patient's medical condition and, if applicable, clinical findings communicated to me by the NPP or inpatient physician who performed the Home Health Referral. All further orders will be obtained through (Community Based Physician - PCP)
--- NOTE | 2019-06-17 16:02 | PDOC.CMDIS ---
- If Service Date Differs Date of service: 06/17/19 Time of Service: 16:02 LACE Index Scoring Tool - Questions: Length of Stay (in days): 4 - 6 Acuity (Admit via E.D.?): Yes Comorbidities: Chronic Pulmonary Disease E.D. Visits: 3 - Answers: Total Score: 12 Risk of Readmission: High Risk Care Management Discharge Reason for Hospitalization: Acute COPD, acute on chronic hypoxia Discharge Plan: Simone will return home with his family via private vehicle. He will resume PT and nursing. CM coordinated 4WW through [facility], and CM assisted with coordination of oxygen through [facility] as well. Bia from [facility] provided education for new respiratory equipment. Simone will follow up with PCP and plan of care as prescribed. Patient/Family Education Needs: Review discharge instructions regarding new equipment, medication and activity. Discussion of self care needs including Ask Me Three. Services Needed at Discharge: DME Agency, Home Health Care Services, Respiratory Therapy
== END 2019-06-17 15:45 | disposition home health service (06) | DRG 189 ==
LOC: ER 10:50 → ICU 11:14
PROVIDERS: Admitting Provider Internal Medicine; Emergency Provider Emergency Medicine; PCP Family Medicine; Visit Provider Internal Medicine
DX: J96.21 Acute and chronic respiratory failure with hypoxia (principal); J44.1 Chronic obstructive pulmonary disease with (acute) exacerbation; C34.11 Malignant neoplasm of upper lobe, right bronchus or lung; C78.2 Secondary malignant neoplasm of pleura; Z99.81 Dependence on supplemental oxygen; E88.01 Alpha-1-antitrypsin deficiency; I27.81 Cor pulmonale (chronic); I25.10 Atherosclerotic heart disease of native coronary artery without angina pectoris; D89.0 Polyclonal hypergammaglobulinemia; I11.0 Hypertensive heart disease with heart failure; I50.82 Biventricular heart failure; G89.3 Neoplasm related pain (acute) (chronic); Z79.891 Long term (current) use of opiate analgesic; K21.9 Gastro-esophageal reflux disease without esophagitis; Z87.891 Personal history of nicotine dependence; Z66 Do not resuscitate; G47.33 Obstructive sleep apnea (adult) (pediatric); E78.5 Hyperlipidemia, unspecified
CPT/HCPCS: 36415; 36591; 71250; 80048; 80053; 82805; 96365; 96366; 97163; 99223; 99232; 99239; 99254; 99285; J1650; 36600; 71045; 80202; 83735; 83880; 84484; 85025; 87070; 87205; 94640; 99284; J2930; J3370; J3490; J7512; J7620; J7626

== ENCOUNTER 2019-07-16 01:45 | Outpatient (RCR) | payer MEDICARE, SELFPAY ==
[2019-06-26] MEDS: Normal Saline Flush 10 ML SYR IVP (08:43)
[2019-06-26 08:57] LABS: Abs Immature Grans 0.15 k/cumm (0.0-0.09); Absolute Basophil Count 0.01 k/cumm (0.0-0.2); Absolute Eosinophil Count 0.08 k/cumm (0.0-0.7); Absolute Lymphocyte Count 0.83 k/cumm (1.2-3.4); Absolute Monocyte Count 0.67 k/cumm (0.11-0.7); Absolute Neutrophil Count 7.88 k/cumm (1.2-6.7); Basophils % 0.1; Eosinophils % 0.8; HCT 43.8 % (40.0-50.0); HGB 13.8 g/dL (13.5-17.5); Immature Grans % 1.6; Lymphocytes % 8.6; Mean Corp. HGB Concentration 31.5 g/dL (32.0-36.0); Mean Corpuscular Hemoglobin 31.5 pg (27.0-33.0); Mean Platelet Volume 9.9 fL (8.0-11.0); Neutrophils % 81.9; Platelet Count 150 x1000/uL (130-400); RBC 4.38 m/cumm (4.50-6.00); RBC Distribution Width 20.7 % (11.8-14.1); White Blood Cell Count 9.62 k/cumm (4.4-10.8)
[2019-06-26 09:07] LABS: ALT 31 U/L (16-63); AST 12 U/L (15-37); Alkaline Phosphatase 111 U/L (46-116); BUN 33 mg/dL (7-18); Bilirubin, Total 0.6 mg/dL (0.2-1.0); CREATININE 1.14 mg/dL (0.70-1.30); Calcium 8.3 mg/dL (8.5-10.1); Chloride 111 mmol/L (98-107); Glucose 100 mg/dL (70-100); LDH 211 U/L (85-227); Potassium 3.8 mmol/L (3.5-5.1); Sodium 146 mmol/L (136-145); Total Protein 6.3 g/dL (6.4-8.2)
[2019-07-10] MEDS: Normal Saline Flush 10 ML SYR IVP (07:40)
[2019-07-10] MEDS: Heparin 500 UNITS/5 ML SYRINGE IV (07:40)
[2019-07-10 07:50] LABS: Abs Immature Grans 0.07 k/cumm (0.0-0.09); Absolute Basophil Count 0.01 k/cumm (0.0-0.2); Absolute Lymphocyte Count 1.16 k/cumm (1.2-3.4); Absolute Monocyte Count 0.56 k/cumm (0.11-0.7); Absolute Neutrophil Count 8.85 k/cumm (1.2-6.7); Basophils % 0.1; Eosinophils % 0.9; HCT 44.7 % (40.0-50.0); HGB 14.3 g/dL (13.5-17.5); Immature Grans % 0.7; Lymphocytes % 10.8; Mean Corpuscular Hemoglobin 31.7 pg (27.0-33.0); Mean Corpuscular Volume 99.1 fL (80-95); Mean Platelet Volume 9.5 fL (8.0-11.0); Monocytes % 5.2; Neutrophils % 82.3; Platelet Count 172 x1000/uL (130-400); RBC 4.51 m/cumm (4.50-6.00); RBC Distribution Width 17.2 % (11.8-14.1); White Blood Cell Count 10.75 k/cumm (4.4-10.8)
[2019-07-10 08:08] LABS: ALT 31 U/L (16-63); AST 14 U/L (15-37); Albumin 3.3 g/dL (3.4-5.0); Alkaline Phosphatase 103 U/L (46-116); Anion Gap 9.8 mmol/L (3-11); BUN 34 mg/dL (7-18); Bilirubin, Total 0.7 mg/dL (0.2-1.0); CO2 27.2 mmol/L (21.0-32.0); CREATININE 0.92 mg/dL (0.70-1.30); Chloride 108 mmol/L (98-107); FREE T4 0.78 ng/dL (0.76-1.46); Glucose 97 mg/dL (70-100); LDH 208 U/L (85-227); Potassium 3.6 mmol/L (3.5-5.1); Sodium 145 mmol/L (136-145); TSH 4.37 uIU/mL (0.36-3.74); Total Protein 6.9 g/dL (6.4-8.2)
[2019-07-16] MEDS: Normal Saline Flush 10 ML SYR IVP (07:43)
[2019-07-16 07:59] LABS: Absolute Basophil Count 0.02 k/cumm (0.0-0.2); Absolute Eosinophil Count 0.05 k/cumm (0.0-0.7); Absolute Lymphocyte Count 1.28 k/cumm (1.2-3.4); Absolute Monocyte Count 0.72 k/cumm (0.11-0.7); Absolute Neutrophil Count 9.61 k/cumm (1.2-6.7); Basophils % 0.2; Eosinophils % 0.4; HCT 44.1 % (40.0-50.0); Immature Grans % 0.8; Lymphocytes % 10.9; Mean Corp. HGB Concentration 31.7 g/dL (32.0-36.0); Mean Corpuscular Volume 97.8 fL (80-95); Mean Platelet Volume 10.2 fL (8.0-11.0); Monocytes % 6.1; Neutrophils % 81.6; Platelet Count 176 x1000/uL (130-400); RBC 4.51 m/cumm (4.50-6.00); White Blood Cell Count 11.78 k/cumm (4.4-10.8)
[2019-07-16 08:37] LABS: ALT 26 U/L (16-63); AST 12 U/L (15-37); Albumin 3.1 g/dL (3.4-5.0); Alkaline Phosphatase 112 U/L (46-116); Anion Gap 8.4 mmol/L (3-11); BUN 37 mg/dL (7-18); Bilirubin, Total 0.6 mg/dL (0.2-1.0); CO2 28.6 mmol/L (21.0-32.0); Calcium 8.9 mg/dL (8.5-10.1); Chloride 106 mmol/L (98-107); FREE T4 0.86 ng/dL (0.76-1.46); Glucose 101 mg/dL (70-100); LDH 203 U/L (85-227); Potassium 3.6 mmol/L (3.5-5.1); Sodium 143 mmol/L (136-145); TSH 4.65 uIU/mL (0.36-3.74); Total Protein 7.1 g/dL (6.4-8.2)
== END 2019-07-17 23:59 | disposition home or self-care (01) ==
LOC: INF 01:45
PROVIDERS: PCP Family Medicine; Visit Provider Registered Nurse Oncology
DX: C34.11 Malignant neoplasm of upper lobe, right bronchus or lung (principal); C77.9 Secondary and unspecified malignant neoplasm of lymph node, unspecified; Z79.899 Other long term (current) drug therapy; Z45.2 Encounter for adjustment and management of vascular access device; E03.2 Hypothyroidism due to medicaments and other exogenous substances
CPT/HCPCS: 36591; 80053; 83615; 84439; 84443; 85025